=== PATIENT | male | born 1960 | race Caucasian/White ===

== ENCOUNTER → 2024-07-29 | Outpatient (CLI) | payer MEDICAID, SELFPAY ==
--- NOTE | 2024-07-29 14:30 | XR_ITS ---
Examination: Carotid arterial duplex scan, ultrasound. Date and time of exam: July 29, 2024 1342 hours INDICATIONS: Dizziness episodes beginning 2 months ago Technique: Multiple sonographic images have been obtained of the carotid arteries and vertebral arteries, B-mode/grayscale imaging and Doppler spectral analysis and color flow Peak systolic and diastolic velocities have been recorded. Systolic diastolic ratios have been calculated. Findings: Right peak systolic velocities: Distal internal carotid artery peak systolic velocity is 0.4 M/sec Proximal internal carotid artery peak systolic velocity is 0.5 M/sec Carotid bifurcation peak systolic velocity is 1.1 M/sec External carotid artery peak systolic velocity is 0.8 M/sec Vertebral artery flow is antegrade. Left peak systolic velocities: Distal internal carotid artery peak systolic velocity is 0.4 M/sec Proximal internal carotid artery peak systolic velocity is 0.8 M/sec Carotid bifurcation peak systolic velocity is 1.1 M/sec External carotid artery peak systolic velocity is 0.8 M/sec Vertebral artery flow is antegrade Doppler waveform analysis demonstrates no spectral broadening Impression: Right internal carotid artery demonstrates 0-10% stenosis. Left internal carotid artery demonstrates 0-10% stenosis.
== END | disposition home or self-care (01) ==
PROVIDERS: PCP Physician Assistant; Referring Provider Surgery Vascular Surgery; Visit Provider Surgery Vascular Surgery
DX: R42 Dizziness and giddiness (principal); Z87.898 Personal history of other specified conditions
CPT/HCPCS: 93880

== ENCOUNTER 2024-09-02 10:42 | Emergency (ER) | payer MEDICAID, SELFPAY ==
--- NOTE | 2024-09-02 10:47 | EKG_ITS ---
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1960 Requested By: ED Temporary Provider Order Number: [id number] Reading MD: ED Temporary Provider Measurements Intervals [place] Rate: 91 P: 62 IA: 132 QRS: -20 QRSD: 116 T: 52 QT: 336 QTc: 414 Interpretive Statements SINUS RHYTHM POSSIBLE LEFT ATRIAL ENLARGEMENT [-0.1mV P WAVE IN V1/V2] INCOMPLETE RIGHT BUNDLE BRANCH BLOCK [90+ ms QRS DURATION, TERMINAL R IN V1/V2, 40+ ms S IN I/aVL/V4/V5/V6] ANTEROSEPTAL MYOCARDIAL INFARCTION , OF INDETERMINATE AGE [40+ ms Q WAVE IN V1-V4] Compared to ECG 06/08/2024 10:56:49 Incomplete right bundle-branch block now present Myocardial infarct finding still present /store/S0/[id number]
--- NOTE | 2024-09-02 11:03 | XR_ITS ---
Examination: CT brain head without contrast. 2-D sagittal coronal reconstructions Date and time of exam:September 02, 2024 1115 hours Comparison June 03, 2024 INDICATIONS: Onset headaches dizziness today, syncopal episode with dizziness June 03, 2024 CTDI: vol (mGy):45.1 DLP: (mGycm):940 Technique: Multiple CT axial sections of the brain have been obtained, 5 mm slice thickness. Contrast has not been administered. 2-D sagittal, coronal reconstructions have been obtained Low dose protocols were performed. One or more of the following dose reduction techniques were used; automated exposure control, adjustment of the mA and/or KV according to patient size, use of iterative reconstruction technique. Findings: No significant ventricular enlargement. Intra-axial or extra-axial hemorrhage density is not seen. No mass effect or midline shift Basal cisterns are not remarkable. Fourth ventricle is midline. Cranial vault intact. Significant right maxillary sinusitis Impression: Negative for acute hemorrhage, mass effect or midline shift
--- NOTE | 2024-09-02 11:03 | XR_ITS ---
Examination: PA lateral chest 2 views TECHNIQUE: Upright PA lateral Exam date and time: September 02, 2024 1129 hours Comparison June 08, 2024 INDICATIONS: Chest pain dizziness today. FINDINGS: Minor subsegmental atelectasis left midlung Normal heart size No pneumonia or pulmonary edema Intact osseous structures mild increased AP dimension chest IMPRESSION: Minor subsegmental atelectasis left midlung No pneumonia or pulmonary edema
--- NOTE | 2024-09-02 11:04 | PD.EDRME ---
Rapid Medical Screening Exam RME Arrival date/time: 09/02/24 10:42 64-year-old male presents to the emergency department complains of chest pain and dizziness since yesterday Chief Complaint: Chest Pain
[2024-09-02 11:05] VITALS: BP 143/92; PULSE 75; RESP 18; TEMP 36.8; O2SAT 96
[2024-09-02 11:22] LABS: Collection Type, Urine Clean Catch; Squamous Epithelial Cell,Urine 0 /hpf (0-5)
[2024-09-02 11:33] LABS: Bilirubin,Urine Negative (Negative); Blood,Urine Negative (Negative); Clarity,Urine Clear (Clear/Hazy); Color,Urine Yellow (Lt Yel-Yel); Glucose, Urine Negative (Negative); Ketones,Urine Negative (Negative); Leukocyte Esterase,Urine Negative (Negative); Nitrite,Urine Negative (Negative); PH,Urine 5.5 (5.0-7.0); Protein,Urine Trace (Neg - Trace); RBC,Urine 5 /hpf (0-3); Specific Gravity,Urine 1.031 (1.001-1.035); Urobilinogen,Urine Negative mg/dL (0.0-1.0); WBC,Urine 2 /hpf (0-5)
[2024-09-02 11:53] LABS: Amphetamine/Methamp Scrn,U Negative (Negative); Barbiturate Screen,Urine Negative (Negative); Benzodiazepines Screen,Urine Negative (Negative); Benzoylecgonine Screen, Ur Negative (Negative); Fentanyl Screen,Urine Negative (Negative); Opiate Screen,Urine Negative (Negative); THC Screen,Urine Positive (Negative)
[2024-09-02 12:18] LABS: Basophils # (Auto) 0.1 Thou/mm3 (0.0-0.2); Basophils % (Auto) 1 % (0-2.5); Eosinophils # (Auto) 0.1 Thou/mm3 (0.0-0.5); Eosinophils % (Auto) 1 % (0-10); Hematocrit 48.8 % (41.0-53.0); Hemoglobin 17.3 g/dL (13.5-16.0); Immature Granulocytes % (Auto) 1 % (0-0); Immature Granulocytes Auto 0.05 Thou/mm3 (0.00-0.00); Lymphocytes # (Auto) 2.7 Thou/mm3 (1.0-4.8); Lymphocytes % (Auto) 27 % (10-50); Mean Corpuscular HGB Conc 35.5 g/dl (31.0-37.0); Mean Corpuscular Hemoglobin 31.1 pg (25.0-35.0); Mean Corpuscular Volume 88 fL (80-100); Monocytes # (Auto) 0.8 Thou/mm3 (0.0-0.8); Monocytes % (Auto) 8 % (0-12); Neutrophils # (Auto) 6.3 Thou/mm3 (1.8-7.7); Neutrophils % (Auto) 63 % (37-80); Nucleated Red Blood Cell % 0 /100 WBC (0); Platelet Count 341 Thou/mm3 (140-440); RDW Standard Deviation 46.4 fL (35.1-43.9); Red Blood Count 5.57 Miln/mm3 (4.50-5.90)
[2024-09-02 12:40] LABS: INR 1.1 (0.9-1.3); Partial Thromboplastin Time 27.7 Seconds (22.0-36.0); Prothrombin Time 11.5 Seconds (9.0-12.2)
[2024-09-02 12:46] LABS: B-Type Natriuretic Peptide < 20 pg/mL (0-100)
[2024-09-02 12:50] LABS: Alanine Aminotransferase 24 U/L (10-49); Albumin, Serum 4.9 gm/dL (3.4-4.8); Alkaline Phosphatase 74 U/L (46-116); Anion Gap 7 (7-16); Aspartate Amino Transferase 15 U/L (0-34); BUN/Creatinine Ratio 14 Ratio (12-20); Bilirubin,Total 0.6 mg/dL (0.3-1.2); Blood Urea Nitrogen 14 mg/dL (9-23); Calcium 9.9 mg/dL (8.3-10.6); Calcium (Corrected) 9.9 mg/dL (8.5-10.1); Carbon Dioxide 27.9 mMol/L (20.0-31.0); Chloride 104 mMol/L (98-107); Globulin 2.5 gm/dL (2.3-3.5); Glucose 175 mg/dL (74-106); Magnesium 1.9 mg/dL (1.6-2.6); Osmolality,Calculated 282 (275-295); Potassium 3.7 mMol/L (3.4-5.1); Sodium 139 mMol/L (136-145); Total Protein 7.4 gm/dL (5.7-8.2); Troponin I < 0.020 ng/mL (0.0-0.045); eGFR > 60 See Note
--- NOTE | 2024-09-02 12:57 | EDNOTE_ITS ---
ED Chest Pain RME/HPI General Chief Complaint: Chest Pain Stated Complaint: CX, DIZZINESS, WEAKNESS, DIFFICULTY BREATHING Time Seen by Provider: 09/02/24 11:11 Arrival date/time: 09/02/24 10:42 RME / HPI RME / HPI narrative: 64-year-old male presents to the emergency department complains of chest pain and dizziness since yesterday. Severity of symptoms moderate. Patient is also complained of shortness of breath, severity mild for several days now. Denies any cough denies any fever denies any headache denies any other complaints no medication was taken prior to arrival. Patient is ambulatory. Related Data Home Medications ?Medication ?Instructions ?Recorded ?Confirmed albuterol sulfate 90 mcg/actuation 2 puff inhalation Q4H 10/05/21 11/18/21 aerosol inhaler docusate sodium 100 mg capsule 100 mg PO BID 10/05/21 11/18/21 nitroglycerin 0.4 mg sublingual 0.4 mg buccal [id number] PRN CHESTPAIN 10/05/21 09/06/22 tablet Previous Rx's ?Medication ?Instructions ?Recorded apixaban 2.5 mg tablet (Eliquis) 5 mg (2 x 2.5 mg) PO BID 30 days 09/07/22 #120 tabs aspirin 81 mg tablet,delayed 81 mg PO QDAY 30 days #30 tabs 09/07/22 release atorvastatin 20 mg tablet 80 mg (4 x 20 mg) PO HS 30 days 09/07/22 #120 tabs clopidogrel 75 mg tablet 75 mg PO QDAY 30 days #30 tabs 09/07/22 losartan 25 mg tablet 50 mg (2 x 25 mg) PO QDAY 30 days 09/07/22 #60 tabs metoprolol succinate 25 mg 50 mg (2 x 25 mg) PO QDAY 30 days 09/07/22 tablet,extended release 24 hr #60 tabs fluticasone propionate 50 2 spray intranasal QDAY #16 grams 11/24/22 mcg/actuation nasal spray,suspension (Flonase Allergy Relief) meclizine 50 mg tablet (Antivert) 50 mg PO BID PRN dizziness or 11/24/22 vertigo #14 tabs meclizine 25 mg tablet 25 mg PO QDAY PRN dizziness #10 06/10/23 tabs meclizine 25 mg tablet 25 mg PO BID PRN dizziness #20 tabs 11/12/23 nicotine 7 mg/24 hr daily 7 mg topical QDAY #14 ea 11/12/23 transdermal patch ibuprofen 800 mg tablet 800 mg PO TID PRN pain #30 tabs 02/11/24 meclizine 50 mg tablet 50 mg PO BID PRN dizziness #20 tabs 02/11/24 albuterol sulfate 90 mcg/actuation 90 mcg inhalation Q6H PRN 06/03/24 breath activated powder shortness of breath or wheezing #1 inhaler,sensor (Proair Digihaler) ea Allergies Allergy/AdvReac Type Severity Reaction Status Date / Time almond oil Allergy Severe Difficulty Verified 09/02/24 10:43 Breathing Iodinated Contrast Media Allergy Severe Hives Verified 09/02/24 10:43 pecan nut Allergy Severe Difficulty Verified 09/02/24 10:43 Breathing tree nut Allergy Severe Difficulty Verified 09/02/24 10:43 Breathing walnut Allergy Severe Difficulty Verified 09/02/24 10:43 Breathing Review of Systems Review of Systems Narrative Review of Systems: Review of system reviewed and within normal limits except mentioned in HPI ED Exam Narrative Physical exam: VITAL SIGNS: Reviewed. GENERAL APPEARANCE: Alert and interactive, follows commands, no acute distress, HEAD AND FACE: Non-traumatic. ENT: PERRL, pink conjunctivitis, eyelid no trauma, Mucous membrane moist. NECK: Supple, nontender, no nuchal rigidity. CHEST: No tenderness, no crepitus, no paradoxical movement, no retractions. LUNGS: Clear, well ventilated, symmetric, no rales, no wheezing, no ronchi, no stridor, good breath sounds bilaterally. HEART: Regular rate, regular rhythm, no murmur, no gallops. ABDOMEN: Soft, positive bowel sounds, nondistended, no guarding, nontender, no rebound, no masses, RECTAL: Deferred. GENITAL: Deferred. NEUROLOGICAL: Gross motor function intact sensory function intact, Appropriate for age. MUSCULOSKELETAL: low back nontender, full range of motion. EXTREMITIES: Nontender, full range of motion. SKIN: Color pink, dry, no rash, no lacerations, no abrasions, no contusions. LYMPHATICS: Deferred. Course Quality Measures none Orders Category Date Time Status EKG (ED ONLY) *Do not use* NOW Care 09/02/24 10:[address] head/brain wo con Stat Exams 09/02/24 11:03 Completed EKG (ED Only) Stat Exams 09/02/24 10:47 Draft XR chest 2V Stat Exams 09/02/24 11:03 Completed B-Type Natriuretic Peptide Stat Lab 09/02/24 11:57 Completed CBC Stat Lab 09/02/24 11:57 Completed Comprehensive Metabolic Panel Stat Lab 09/02/24 11:57 Completed Drug Screen,Urine Stat Lab 09/02/24 11:21 Completed Magnesium Stat Lab 09/02/24 11:57 Completed Partial Thromboplastin Time Stat Lab 09/02/24 11:57 Completed Prothrombin Time with INR Stat Lab 09/02/24 11:57 Completed Troponin I Stat Lab 09/02/24 11:57 Completed Urinalysis Stat Lab 09/02/24 11:21 Completed Vital Signs Vital signs: Vital Signs Temperature 98.3 F 09/02/24 11:05 Pulse Rate 75 09/02/24 11:05 Respiratory Rate 18 09/02/24 11:05 Blood Pressure 143/92 H 09/02/24 11:05 Pulse Oximetry (%) 96 09/02/24 11:05 Oxygen Delivery Method Room Air 09/02/24 11:05 Chest Pain MDM Narrative MDM Narrative:: 64-year-old male patient presents to the emergency department complains of chest pain and dizziness since yesterday. Severity of symptoms moderate. Patient is also complained of shortness of breath, severity mild for several days now. Denies any cough denies any fever denies any headache denies any other complaints no medication was taken prior to arrival. Patient is ambulatory. Patient's cardiac workup including troponin x 3 all came back normal. CT scan of the head also came back unremarkable. Results discussed with the patient. Patient was noted to be ambulatory with no aid. Patient stable for discharge home. Patient was advised to closely follow-up with PCP and continue taking his meclizine. Patient data External records reviewed:: [facility] previous records Clinical information provided by:: patient Social determinants that could affect healthcare access:: none Patient has the following chronic illnesses:: Hypertension How is presenting disease/condition affected by chronic disease/condition?: exacerbated by Evaluation data The following diagnostics were reviewed and interpreted by me:: lab results, radiology exam(s) and EKG tracing(s) Lab and/or radiology exams considered but not ordered:: None Interpretation Summary: Laboratory workup including troponin x 3, all came back normal. CT scan of the head came back unremarkable. Urinalysis negative for UTI. EKG showed sinus rhythm, ventricular of 91 bpm, no ST segment elevation or depression noted. I personally reviewed and interpreted the x-ray of this patient. There is no acute abnormalities found, no infiltrates no pneumothorax no hemothorax normal chest x-ray. Review of other structures was without significant abnormal findings also. I additionally reviewed the radiologist report and agree with the interpretation. Medications / Prescriptions Medications or Prescriptions considered but not ordered:: None Medication administrations:: None Consultations Consultation(s) initiated? (list below): No Diagnosis Chest Pain Differential Diagnosis: pneumothorax, atypical chest pain and chest pain Most likely diagnosis given after review of the tests above:: Dizziness, chest pain Admission Indicated Admission indicated?: not indicated Explain why admission is indicated or not indicated:: Stable Admission Request Was there a request for admission?: No Disposition Plan Disposition Plan: Discharge Discharge Attestation Discharge Attestation: The patient was given an opportunity to ask questions and understood the discharge instructions. Discharge instructions specifically effects, indications for sooner follow up or return to the emergency department, and the expected course of current diagnosis. Patient condition: Stable Discharge Plan Plan Patient Disposition: HOME (Self Care) Disposition Comment: Stable Prescriptions/Referrals Prescriptions/Med Rec: No Action nitroglycerin 0.4 mg tablet, sublingual 0.4 mg BUCCAL [id number] PRN (Reason: CHESTPAIN) Patient Comments: PLACE 1 TABLET UNDER TONGUE EVERY 5 MINS, UP TO 3 DOSES PER 15MIN NEEDED FOR CHEST PAIN GO TO ER docusate sodium 100 mg capsule 100 mg PO BID Patient Comments: TAKE 1 CAPSULE BY MOUTH TWICE A DAY albuterol sulfate 90 mcg/actuation HFA aerosol inhaler 2 puff INHALATION Q4H Patient Comments: INHALE 2 PUFFS BY MOUTH EVERY 4 HOURS NEEDED FOR WHEEZING Eliquis 2.5 mg Tablet 5 mg PO BID 30 Days Qty: 120 2RF aspirin 81 mg Tablet,Delayed Release (Dr/Ec) 81 mg PO QDAY 30 Days Qty: 30 2RF atorvastatin 20 mg Tablet 80 mg PO HS 30 Days Qty: 120 2RF clopidogrel 75 mg Tablet 75 mg PO QDAY 30 Days Qty: 30 2RF losartan 25 mg Tablet 50 mg PO QDAY 30 Days Qty: 60 2RF metoprolol succinate 25 mg Tablet Extended Release 24 Hr 50 mg PO QDAY 30 Days Qty: 60 2RF meclizine 25 mg tablet 25 mg PO QDAY PRN (Reason: dizziness) Qty: 10 0RF Proair Digihaler 90 mcg/actuation aero powdr breath act w/sensor 90 mcg inhalation Q6H PRN (Reason: shortness of breath or wheezing) Qty: 1 0RF fluticasone propionate [Flonase Allergy Relief] 50 mcg/actuation spray,suspension 2 spray intranasal QDAY Qty: 16 0RF Rx Instructions: administer into each nostril Antivert 50 mg tablet 50 mg PO BID PRN (Reason: dizziness or vertigo) Qty: 14 0RF nicotine 7 mg/24 hr patch 24 hour 7 mg topical QDAY Qty: 14 0RF meclizine 25 mg tablet 25 mg PO BID PRN (Reason: dizziness) Qty: 20 0RF meclizine 50 mg tablet 50 mg PO BID PRN (Reason: dizziness) Qty: 20 0RF ibuprofen 800 mg tablet 800 mg PO TID PRN (Reason: pain) Qty: 30 0RF Referrals: Jacinto Valadez PA-C [Primary Care Provider] - In 1 week Problem List Clinical Impression: Dizziness, Chest pain Patient/Caregiver Discharge Instructions Discharge Activity: activity as tolerated Education Materials: ED Dizziness, Uncertain Cause Additional Instructions: Thank you for the opportunity for serving you today. You are stable for discharged . You are advised to: Follow-up with your PCP in 1 to 2 days Return to ED for worsening of symptoms Increase oral fluids Continue taking your meclizine as needed Print Language: Greek Stand Alone Forms: [employer] Award Info., Patient Portal Info Letter PA/NAVEED Supervising Physician KATHLEEN/NAVEED Supervising Physician: MD Luma
== END 2024-09-02 14:35 | disposition home or self-care (01) ==
PROVIDERS: Nurse Practitioner Primary Care; Emergency Provider Emergency Medicine; PCP Physician Assistant
DX: R42 Dizziness and giddiness (principal); R07.9 Chest pain, unspecified
CPT/HCPCS: 36415; 70450; 71046; 80053; 80307; 81001; 83735; 83880; 84484; 85025; 85610; 85730; 93005; 99284

== ENCOUNTER 2024-09-11 13:14 | Emergency (ER) | payer MEDICAID, SELFPAY ==
[2024-09-11 13:18] VITALS: PULSE 72; O2SAT 99; BMI 27.1
[2024-09-11 13:22] VITALS: BP 124/79; PULSE 81; RESP 16; TEMP 36.6; O2SAT 95
--- NOTE | 2024-09-11 13:29 | XR_ITS ---
Examination: CT brain head without contrast. 2-D sagittal coronal reconstructions Date and time of exam:September 11, 2024 1354 hrs. Indications: Syncopal episode today CTDI: vol (mGy):48.1 DLP: (mGycm):1020 Technique: Multiple CT axial sections of the brain have been obtained, 5 mm slice thickness. Contrast has not been administered. 2-D sagittal, coronal reconstructions have been obtained Low dose protocols were performed. One or more of the following dose reduction techniques were used; automated exposure control, adjustment of the mA and/or KV according to patient size, use of iterative reconstruction technique. Findings: No significant ventricular enlargement. Intra-axial or extra-axial hemorrhage density is not seen. No mass effect or midline shift Basal cisterns are not remarkable. Fourth ventricle is midline. Cranial vault intact. Significant maxillary right sinusitis Impression: Negative for acute hemorrhage, mass effect or midline shift Advise clinical correlation and follow-up accordingly
--- NOTE | 2024-09-11 13:29 | XR_ITS ---
Examination: PA chest single view Technique: Upright PA chest single view Exam date and time: September 11, 2024 1409 hrs. Comparison September 02, 2024 Indications: Shortness of breath dizziness today. Findings: Minor atelectasis in the left midlung Normal heart size No pneumonia or pulmonary edema Impression: No pneumonia or pulmonary edema
--- NOTE | 2024-09-11 13:29 | EKG_ITS ---
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
--- NOTE | 2024-09-11 13:31 | EDNOTE_ITS ---
<Statement entered by Franci Fan MD - 09/18/24 18:13> As co-signing physician, I was present and available for consult prn. I concur with the plan and care as documented by the midlevel provider. ED Syncope RME/HPI General Chief Complaint: Weakness Stated Complaint: GENERAL WEAKNESS FOR A FEW MONTHS, PASSED OUT Time Seen by Provider: 09/11/24 13:25 Arrival date/time: 09/11/24 13:14 RME / HPI RME / HPI narrative: 64-year-old male patient with significant history of ACS, CAD, hypertension, labyrinthitis, [place], came in for evaluation regarding syncope. Patient was fixing a chair, and suddenly developed dizziness, and fell down, does not remember what happened after that. Lasted for few seconds according to the patient. Currently patient is complaining of a headache and dizziness. Denies any chest pain. But complain of generalized body weakness for months. Denies any neck pain denies any back pain. Denies any other complaints no medication was taken prior to arrival. Patient was noted to be ambulatory. Related Data Home Medications ?Medication ?Instructions ?Recorded ?Confirmed albuterol sulfate 90 mcg/actuation 2 puff inhalation Q4H 10/05/21 11/18/21 aerosol inhaler docusate sodium 100 mg capsule 100 mg PO BID 10/05/21 11/18/21 nitroglycerin 0.4 mg sublingual 0.4 mg buccal [id number] PRN CHESTPAIN 10/05/21 0 09/06/22 tablet Previous Rx's ?Medication ?Instructions ?Recorded apixaban 2.5 mg tablet (Eliquis) 5 mg (2 x 2.5 mg) PO BID 30 days 09/07/22 #120 tabs aspirin 81 mg tablet,delayed 81 mg PO QDAY 30 days #30 tabs 09/07/22 release atorvastatin 20 mg tablet 80 mg (4 x 20 mg) PO HS 30 days 09/07/22 #120 tabs clopidogrel 75 mg tablet 75 mg PO QDAY 30 days #30 tabs 09/07/22 losartan 25 mg tablet 50 mg (2 x 25 mg) PO QDAY 30 days 09/07/22 #60 tabs metoprolol succinate 25 mg 50 mg (2 x 25 mg) PO QDAY 30 days 09/07/22 tablet,extended release 24 hr #60 tabs fluticasone propionate 50 2 spray intranasal QDAY #16 grams 11/24/22 mcg/actuation nasal spray,suspension (Flonase Allergy Relief) meclizine 50 mg tablet (Antivert) 50 mg PO BID PRN dizziness or 11/24/22 vertigo #14 tabs meclizine 25 mg tablet 25 mg PO QDAY PRN dizziness #10 06/10/23 tabs meclizine 25 mg tablet 25 mg PO BID PRN dizziness #20 tabs 11/12/23 nicotine 7 mg/24 hr daily 7 mg topical QDAY #14 ea 11/12/23 transdermal patch ibuprofen 800 mg tablet 800 mg PO TID PRN pain #30 tabs 02/11/24 meclizine 50 mg tablet 50 mg PO BID PRN dizziness #20 tabs 02/11/24 albuterol sulfate 90 mcg/actuation 90 mcg inhalation Q6H PRN 06/03/24 breath activated powder shortness of breath or wheezing #1 inhaler,sensor (Proair Digihaler) ea Allergies Allergy/AdvReac Type Severity Reaction Status Date / Time almond oil Allergy Severe Difficulty Verified 09/11/24 13:18 Breathing Iodinated Contrast Media Allergy Severe Hives Verified 09/11/24 13:18 pecan nut Allergy Severe Difficulty Verified 09/11/24 13:18 Breathing tree nut Allergy Severe Difficulty Verified 09/11/24 13:18 Breathing walnut Allergy Severe Difficulty Verified 09/11/24 13:18 Breathing Review of Systems Review of Systems Narrative Review of Systems: Review of system reviewed and within normal limits except mentioned in HPI ED Exam Narrative Physical exam: VITAL SIGNS: Reviewed. GENERAL APPEARANCE: Alert and interactive, follows commands, no acute distress, HEAD AND FACE: Non-traumatic. ENT: PERRL, pink conjunctivitis, eyelid no trauma, Mucous membrane moist. NECK: Supple, nontender, no nuchal rigidity. CHEST: No tenderness, no crepitus, no paradoxical movement, no retractions. LUNGS: Clear, well ventilated, symmetric, no rales, no wheezing, no ronchi, no stridor, good breath sounds bilaterally. HEART: Regular rate, regular rhythm, no murmur, no gallops. ABDOMEN: Soft, positive bowel sounds, nondistended, no guarding, nontender, no rebound, no masses, RECTAL: Deferred. GENITAL: Deferred. NEUROLOGICAL: Gross motor function intact sensory function intact, Appropriate for age. MUSCULOSKELETAL: low back nontender, full range of motion. EXTREMITIES: Nontender, full range of motion. SKIN: Color pink, dry, no rash, no lacerations, no abrasions, no contusions. LYMPHATICS: Deferred. Course Quality Measures none Orders Category Date Time Status EKG (ED ONLY) *Do not use* NOW Care 09/11/24 13:[address] head/brain wo con Stat Exams 09/11/24 13:29 Completed EKG (ED Only) Stat Exams 09/11/24 13:29 Draft XR chest 1V Stat Exams 09/11/24 13:29 Completed B-Type Natriuretic Peptide Stat Lab 09/11/24 13:50 Completed CBC Stat Lab 09/11/24 13:50 Completed Comprehensive Metabolic Panel Stat Lab 09/11/24 13:50 Completed Drug Screen,Urine Stat Lab 09/11/24 17:40 Completed Partial Thromboplastin Time Stat Lab 09/11/24 13:50 Completed Prothrombin Time with INR Stat Lab 09/11/24 13:50 Completed Troponin I Stat Lab 09/11/24 13:50 Completed Urinalysis, C/S if Indicated Stat Lab 09/11/24 17:40 Completed Acetaminophen Tab [Tylenol ES Tab] Med 09/11/24 13:29 Discontinued 1,000 mg PO X1 ONE Meclizine HCl [Antivert] Med 09/11/24 13:29 Discontinued 50 mg PO X1 ONE Vital Signs Vital signs: Vital Signs Temperature 97.9 F 09/11/24 13:22 Pulse Rate 81 09/11/24 13:22 Respiratory Rate 16 09/11/24 13:22 Blood Pressure 124/79 09/11/24 13:22 Pulse Oximetry (%) 95 09/11/24 13:22 Oxygen Delivery Method Room Air 09/11/24 13:22 Syncope MDM Narrative MDM Narrative:: 64-year-old male patient with significant history of ACS, CAD, hypertension, labyrinthitis, [place], came in for evaluation regarding syncope. Patient was fixing a chair, and suddenly developed dizziness, and fell down, does not remember what happened after that. Lasted for few seconds according to the patient. Currently patient is complaining of a headache and dizziness. Denies any chest pain. But complain of generalized body weakness for months. Denies any neck pain denies any back pain. Denies any other complaints no medication was taken prior to arrival. Patient was noted to be ambulatory. Patient eloped from the emergency room Patient data External records reviewed:: None Clinical information provided by:: patient Social determinants that could affect healthcare access:: none Patient has the following chronic illnesses:: Hypertension CAD How is presenting disease/condition affected by chronic disease/condition?: exacerbated by Evaluation data The following diagnostics were reviewed and interpreted by me:: lab results, radiology exam(s) and EKG tracing(s) Lab and/or radiology exams considered but not ordered:: None Interpretation Summary: Patient is CBC came back unremarkable. CMP came back unremarkable. Troponin is normal. LFTs are normal. Urinalysis no UTI positive for marijuana. CT scan of the head came back unremarkable. I personally reviewed and interpreted the x-ray of this patient. There is no acute abnormalities found, no infiltrates no pneumothorax no hemothorax normal chest x-ray. Review of other structures was without significant abnormal findings also. I additionally reviewed the radiologist report and agree with the interpretation. Medications / Prescriptions Medications or Prescriptions considered but not ordered:: None Medication administrations:: Medication Administration History Discontinued Medications Acetaminophen (Acetaminophen 500 Mg Tablet) 1,000 mg PO X1 ONE Stop: 09/11/24 13:30 Last Admin: 09/11/24 13:37 Dose: 1,000 mg Documented By: KEN Meclizine HCl (Meclizine Hcl 25 Mg Tablet) 50 mg PO X1 ONE Stop: 09/11/24 13:30 Last Admin: 09/11/24 13:37 Dose: 50 mg Documented By: KEN Meclizine and Tylenol Consultations Consultation(s) initiated? (list below): No Diagnosis Syncope Differential Diagnosis: syncope due to orthostatic hypotension, vasovagal syncope and subarachnoid hemorrhage Most likely diagnosis given after review of the tests above:: Syncope Admission Indicated Admission indicated?: not indicated ([facility]) Admission Request Was there a request for admission?: No Disposition Plan Disposition Plan: other (specify) ([facility]) Discharge Plan Plan Patient Disposition: Elopement Prescriptions/Referrals Prescriptions/Med Rec: No Action nitroglycerin 0.4 mg tablet, sublingual 0.4 mg BUCCAL [id number] PRN (Reason: CHESTPAIN) Patient Comments: PLACE 1 TABLET UNDER TONGUE EVERY 5 MINS, UP TO 3 DOSES PER 15MIN NEEDED FOR CHEST PAIN GO TO ER docusate sodium 100 mg capsule 100 mg PO BID Patient Comments: TAKE 1 CAPSULE BY MOUTH TWICE A DAY albuterol sulfate 90 mcg/actuation HFA aerosol inhaler 2 puff INHALATION Q4H Patient Comments: INHALE 2 PUFFS BY MOUTH EVERY 4 HOURS NEEDED FOR WHEEZING Eliquis 2.5 mg Tablet 5 mg PO BID 30 Days Qty: 120 2RF aspirin 81 mg Tablet,Delayed Release (Dr/Ec) 81 mg PO QDAY 30 Days Qty: 30 2RF atorvastatin 20 mg Tablet 80 mg PO HS 30 Days Qty: 120 2RF clopidogrel 75 mg Tablet 75 mg PO QDAY 30 Days Qty: 30 2RF losartan 25 mg Tablet 50 mg PO QDAY 30 Days Qty: 60 2RF metoprolol succinate 25 mg Tablet Extended Release 24 Hr 50 mg PO QDAY 30 Days Qty: 60 2RF meclizine 25 mg tablet 25 mg PO QDAY PRN (Reason: dizziness) Qty: 10 0RF Proair Digihaler 90 mcg/actuation aero powdr breath act w/sensor 90 mcg inhalation Q6H PRN (Reason: shortness of breath or wheezing) Qty: 1 0RF fluticasone propionate [Flonase Allergy Relief] 50 mcg/actuation spray,suspension 2 spray intranasal QDAY Qty: 16 0RF Rx Instructions: administer into each nostril Antivert 50 mg tablet 50 mg PO BID PRN (Reason: dizziness or vertigo) Qty: 14 0RF nicotine 7 mg/24 hr patch 24 hour 7 mg topical QDAY Qty: 14 0RF meclizine 25 mg tablet 25 mg PO BID PRN (Reason: dizziness) Qty: 20 0RF meclizine 50 mg tablet 50 mg PO BID PRN (Reason: dizziness) Qty: 20 0RF ibuprofen 800 mg tablet 800 mg PO TID PRN (Reason: pain) Qty: 30 0RF Referrals: Jacinto Valadez PA-C [Primary Care Provider] - In 1 week Problem List Clinical Impression: Dizziness, Syncope Patient/Caregiver Discharge Instructions Print Language: Mauritanian
[2024-09-11] MEDS: MECLIZINE HCL 25 MG TABLET 50 MG PO (13:37)
[2024-09-11] MEDS: ACETAMINOPHEN 500 MG TABLET 1000 MG PO (13:37)
[2024-09-11 14:26] LABS: Basophils # (Auto) 0.1 Thou/mm3 (0.0-0.2); Basophils % (Auto) 1 % (0-2.5); Eosinophils # (Auto) 0.2 Thou/mm3 (0.0-0.5); Eosinophils % (Auto) 2 % (0-10); Hematocrit 48.3 % (41.0-53.0); Hemoglobin 16.8 g/dL (13.5-16.0); Immature Granulocytes % (Auto) 1 % (0-0); Immature Granulocytes Auto 0.05 Thou/mm3 (0.00-0.00); Lymphocytes # (Auto) 2.4 Thou/mm3 (1.0-4.8); Lymphocytes % (Auto) 27 % (10-50); Mean Corpuscular HGB Conc 34.8 g/dl (31.0-37.0); Mean Corpuscular Hemoglobin 30.8 pg (25.0-35.0); Mean Corpuscular Volume 89 fL (80-100); Monocytes # (Auto) 0.9 Thou/mm3 (0.0-0.8); Monocytes % (Auto) 10 % (0-12); Neutrophils # (Auto) 5.2 Thou/mm3 (1.8-7.7); Neutrophils % (Auto) 59 % (37-80); Nucleated Red Blood Cell % 0 /100 WBC (0); Platelet Count 315 Thou/mm3 (140-440); RDW Standard Deviation 45.7 fL (35.1-43.9); Red Blood Count 5.45 Miln/mm3 (4.50-5.90); White Blood Count 8.9 Thou/mm3 (3.8-10.6)
[2024-09-11 14:40] LABS: Partial Thromboplastin Time 27.1 Seconds (22.0-36.0); Prothrombin Time 10.9 Seconds (9.0-12.2)
[2024-09-11 14:41] LABS: B-Type Natriuretic Peptide < 20 pg/mL (0-100)
[2024-09-11 14:43] LABS: Alanine Aminotransferase 27 U/L (10-49); Albumin, Serum 4.9 gm/dL (3.4-4.8); Alkaline Phosphatase 74 U/L (46-116); Anion Gap 8 (7-16); Aspartate Amino Transferase 16 U/L (0-34); BUN/Creatinine Ratio 13 Ratio (12-20); Bilirubin,Total 0.4 mg/dL (0.3-1.2); Blood Urea Nitrogen 12 mg/dL (9-23); Calcium 9.8 mg/dL (8.3-10.6); Calcium (Corrected) 9.8 mg/dL (8.5-10.1); Carbon Dioxide 25.6 mMol/L (20.0-31.0); Chloride 106 mMol/L (98-107); Creatinine (Component) 0.9 mg/dL (0.6-1.3); Estimated Creatinine Clearance 77.5 mL/min (>60); Globulin 2.5 gm/dL (2.3-3.5); Glucose 102 mg/dL (74-106); Osmolality,Calculated 279 (275-295); Potassium 4.2 mMol/L (3.4-5.1); Sodium 140 mMol/L (136-145); Total Protein 7.4 gm/dL (5.7-8.2); Troponin I < 0.020 ng/mL (0.0-0.045); eGFR > 60 See Note
[2024-09-11 17:45] VITALS: BP 154/96; PULSE 78; RESP 19; TEMP 36.4; O2SAT 97
[2024-09-11 17:45] LABS: Collection Type, Urine Clean Catch
[2024-09-11 17:53] LABS: Bilirubin,Urine Negative (Negative); Blood,Urine Negative (Negative); Clarity,Urine Clear (Clear/Hazy); Color,Urine Lt-Yellow (Lt Yel-Yel); Culture Indicated,Urine Not Indicated; Glucose, Urine Negative (Negative); Ketones,Urine Negative (Negative); Leukocyte Esterase,Urine Negative (Negative); Nitrite,Urine Negative (Negative); PH,Urine 5.5 (5.0-7.0); Protein,Urine Negative (Neg - Trace); RBC,Urine < 1 /hpf (0-3); Squamous Epithelial Cell,Urine < 1 /hpf (0-5); Urobilinogen,Urine Negative mg/dL (0.0-1.0); WBC,Urine 1 /hpf (0-5)
[2024-09-11 18:04] LABS: Amphetamine/Methamp Scrn,U Negative (Negative); Barbiturate Screen,Urine Negative (Negative); Benzodiazepines Screen,Urine Negative (Negative); Benzoylecgonine Screen, Ur Negative (Negative); Fentanyl Screen,Urine Negative (Negative); Opiate Screen,Urine Negative (Negative); THC Screen,Urine Positive (Negative)
--- NOTE | 2024-09-11 18:36 | PC.NURSE ---
PROVIDER ANISH CALLED PATIENT IN THE LOBBY FOR RESULTS, NO ANSWER RECEIVED. THIS NURSE CALLED PATIENT IN THE RESTROOM AND OUTSIDE, NO ANSWER RECEIVED.
--- NOTE | 2024-09-11 18:54 | PC.NURSE ---
CALLED PATIENT IN THE LOBBY, RESTROOM, AND OUTSIDE, NO ANSWER.
--- NOTE | 2024-09-11 19:06 | PC.NURSE ---
no answer at er lobby or outside er.
== END 2024-09-11 19:07 | disposition left against medical advice (07) ==
PROVIDERS: Nurse Practitioner Family; Emergency Provider Emergency Medicine; PCP Physician Assistant
DX: R42 Dizziness and giddiness (principal); R55 Syncope and collapse; I25.10 Atherosclerotic heart disease of native coronary artery without angina pectoris; I10 Essential (primary) hypertension; I25.2 Old myocardial infarction
CPT/HCPCS: 36415; 70450; 71045; 80053; 80307; 81001; 83880; 84484; 85025; 85610; 85730; 93005; 99284; A9270

== ENCOUNTER 2024-10-02 08:34 | Inpatient (IN) | payer MEDICAID, SELFPAY ==
[2024-10-02] VITALS (38 sets, daily range): BP systolic 115–161; BP diastolic 78–101; PULSE 65–110; RESP 15–38; TEMP 36.4–36.8; O2SAT 87–98; BMI 27.2
--- NOTE | 2024-10-02 08:39 | EKG_ITS ---
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
--- NOTE | 2024-10-02 09:14 | XR_ITS ---
Examination: PA lateral chest 2 views Technique: Upright PA lateral chest 2 views Exam date and time: October 12, 2024 0941 hrs. Comparison September 11, 2024 Indications: Onset acute chest pain and dizziness today Findings: Normal heart size The lungs are clear. Mild hyperexpansion No lobar pneumonia or pulmonary edema Impression: Mild hyperexpansion No lobar pneumonia or pulmonary edema
--- NOTE | 2024-10-02 09:14 | PD.EDRME ---
Rapid Medical Screening Exam RME Arrival date/time: 10/02/24 08:34 64-year-old male presents to the emergency department with complaints of acute chest pain, dizziness. I have greeted and performed a focused initial assessment of this patient. Initial appropriate labs ordered at this time. A comprehensive ED assessment and evaluation of the patient and analysis of all test and completion of medical decision making process will be conducted by additional ED provider. Chief Complaint: Chest Pain Time Seen by Provider: 10/02/24 09:07 Vital signs: Vital Signs Temperature 98.3 F 10/02/24 08:59 Pulse Rate 81 10/02/24 08:59 Respiratory Rate 16 10/02/24 08:59 Blood Pressure 135/84 H 10/02/24 08:59 Pulse Oximetry (%) 97 10/02/24 08:59 Oxygen Delivery Method Room Air 10/02/24 08:59
--- NOTE | 2024-10-02 09:23 | PC.NURSE ---
Patient presents to ER with complaint of Right arm pain, dizziness, and blacking out x 2 days. Patient states he is currently not having any pain. Patient is GCS 15 and answers all questions appropriately. Awaiting further orders and will continue to monitor.
--- NOTE | 2024-10-02 09:43 | PD.EDCHEST ---
ED Chest Pain RME/HPI General Chief Complaint: Chest Pain Stated Complaint: chest pain, sob, feels like passing out since yest Time Seen by Provider: 10/02/24 09:07 Arrival date/time: 10/02/24 08:34 RME / HPI RME / HPI narrative: 10/02/24 08:34 64-year-old male presents to the emergency department with complaints of acute chest pain, dizziness. I have greeted and performed a focused initial assessment of this patient. Initial appropriate labs ordered at this time. A comprehensive ED assessment and evaluation of the patient and analysis of all test and completion of medical decision making process will be conducted by additional ED provider. DR. A[facility] MAIN ED EVALUATION: passing out5 just zitting in chair feels someithing coming, then down falls out of chair seconds before yesterday fell outside in the [place] sitting in chair outside once yesterday last time 4-5 days ago getting HAs on left side of head Related Data Home Medications ?Medication ?Instructions ?Recorded ?Confirmed albuterol sulfate 90 mcg/actuation 2 puff inhalation Q4H 10/05/21 11/18/21 aerosol inhaler docusate sodium 100 mg capsule 100 mg PO BID 10/05/21 11/18/21 nitroglycerin 0.4 mg sublingual 0.4 mg buccal [id number] PRN CHESTPAIN 10/05/21 09/06/22 tablet Previous Rx's ?Medication ?Instructions ?Recorded apixaban 2.5 mg tablet (Eliquis) 5 mg (2 x 2.5 mg) PO BID 30 days 09/07/22 #120 tabs aspirin 81 mg tablet,delayed 81 mg PO QDAY 30 days #30 tabs 09/07/22 release atorvastatin 20 mg tablet 80 mg (4 x 20 mg) PO HS 30 days 09/07/22 #120 tabs clopidogrel 75 mg tablet 75 mg PO QDAY 30 days #30 tabs 09/07/22 losartan 25 mg tablet 50 mg (2 x 25 mg) PO QDAY 30 days 09/07/22 #60 tabs metoprolol succinate 25 mg 50 mg (2 x 25 mg) PO QDAY 30 days 09/07/22 tablet,extended release 24 hr #60 tabs fluticasone propionate 50 2 spray intranasal QDAY #16 grams 11/24/22 mcg/actuation nasal spray,suspension (Flonase Allergy Relief) meclizine 50 mg tablet (Antivert) 50 mg PO BID PRN dizziness or 11/24/22 vertigo #14 tabs meclizine 25 mg tablet 25 mg PO QDAY PRN dizziness #10 06/10/23 tabs meclizine 25 mg tablet 25 mg PO BID PRN dizziness #20 tabs 11/12/23 nicotine 7 mg/24 hr daily 7 mg topical QDAY #14 ea 11/12/23 transdermal patch ibuprofen 800 mg tablet 800 mg PO TID PRN pain #30 tabs 02/11/24 meclizine 50 mg tablet 50 mg PO BID PRN dizziness #20 tabs 02/11/24 albuterol sulfate 90 mcg/actuation 90 mcg inhalation Q6H PRN 06/03/24 breath activated powder shortness of breath or wheezing #1 inhaler,sensor (Proair Digihaler) ea Allergies Allergy/AdvReac Type Severity Reaction Status Date / Time almond oil Allergy Severe Difficulty Verified 10/02/24 08:37 Breathing Iodinated Contrast Media Allergy Severe Hives Verified 10/02/24 08:37 pecan nut Allergy Severe Difficulty Verified 10/02/24 08:37 Breathing tree nut Allergy Severe Difficulty Verified 10/02/24 08:37 Breathing walnut Allergy Severe Difficulty Verified 10/02/24 08:37 Breathing Course Orders Category Date Time Status Bedside Influenza A&B Antigen Test NOW Care 10/02/24 09:14 Completed EKG (ED ONLY) *Do not use* NOW Care 10/02/24 08:39 Completed EKG (ED Only) Stat Exams 10/02/24 08:39 Draft XR chest 2V Stat Exams 10/02/24 09:14 Taken B-Type Natriuretic Peptide Stat Lab 10/02/24 09:40 Completed CBC Stat Lab 10/02/24 09:40 Received Comprehensive Metabolic Panel Stat Lab 10/02/24 09:40 Completed Lipase Stat Lab 10/02/24 09:40 Completed Magnesium Stat Lab 10/02/24 09:40 Completed Partial Thromboplastin Time Stat Lab 10/02/24 09:40 Completed Prothrombin Time with INR Stat Lab 10/02/24 09:40 Completed Troponin I Stat Lab 10/02/24 09:40 Completed Vital Signs Vital signs: Vital Signs Temperature 98.3 F 10/02/24 08:59 Pulse Rate 81 10/02/24 08:59 Respiratory Rate 16 10/02/24 08:59 Blood Pressure 135/84 H 10/02/24 08:59 Pulse Oximetry (%) 97 10/02/24 08:59 Oxygen Delivery Method Room Air 10/02/24 08:59 Discharge Plan Prescriptions/Referrals Prescriptions/Med Rec: No Action nitroglycerin 0.4 mg tablet, sublingual 0.4 mg BUCCAL [id number] PRN (Reason: CHESTPAIN) Patient Comments: PLACE 1 TABLET UNDER TONGUE EVERY 5 MINS, UP TO 3 DOSES PER 15MIN NEEDED FOR CHEST PAIN GO TO ER docusate sodium 100 mg capsule 100 mg PO BID Patient Comments: TAKE 1 CAPSULE BY MOUTH TWICE A DAY albuterol sulfate 90 mcg/actuation HFA aerosol inhaler 2 puff INHALATION Q4H Patient Comments: INHALE 2 PUFFS BY MOUTH EVERY 4 HOURS NEEDED FOR WHEEZING Eliquis 2.5 mg Tablet 5 mg PO BID 30 Days Qty: 120 2RF aspirin 81 mg Tablet,Delayed Release (Dr/Ec) 81 mg PO QDAY 30 Days Qty: 30 2RF atorvastatin 20 mg Tablet 80 mg PO HS 30 Days Qty: 120 2RF clopidogrel 75 mg Tablet 75 mg PO QDAY 30 Days Qty: 30 2RF losartan 25 mg Tablet 50 mg PO QDAY 30 Days Qty: 60 2RF metoprolol succinate 25 mg Tablet Extended Release 24 Hr 50 mg PO QDAY 30 Days Qty: 60 2RF meclizine 25 mg tablet 25 mg PO QDAY PRN (Reason: dizziness) Qty: 10 0RF Proair Digihaler 90 mcg/actuation aero powdr breath act w/sensor 90 mcg inhalation Q6H PRN (Reason: shortness of breath or wheezing) Qty: 1 0RF fluticasone propionate [Flonase Allergy Relief] 50 mcg/actuation spray,suspension 2 spray intranasal QDAY Qty: 16 0RF Rx Instructions: administer into each nostril Antivert 50 mg tablet 50 mg PO BID PRN (Reason: dizziness or vertigo) Qty: 14 0RF nicotine 7 mg/24 hr patch 24 hour 7 mg topical QDAY Qty: 14 0RF meclizine 25 mg tablet 25 mg PO BID PRN (Reason: dizziness) Qty: 20 0RF meclizine 50 mg tablet 50 mg PO BID PRN (Reason: dizziness) Qty: 20 0RF ibuprofen 800 mg tablet 800 mg PO TID PRN (Reason: pain) Qty: 30 0RF Referrals: Jacinto Valadez PA-C [Primary Care Provider] - In 1 week Patient/Caregiver Discharge Instructions Print Language: Kiswahili
[2024-10-02 09:52] LABS: Basophils # (Auto) 0.1 Thou/mm3 (0.0-0.2); Basophils % (Auto) 1 % (0-2.5); Eosinophils # (Auto) 0.2 Thou/mm3 (0.0-0.5); Eosinophils % (Auto) 2 % (0-10); Hematocrit 46.5 % (41.0-53.0); Hemoglobin 16.3 g/dL (13.5-16.0); Immature Granulocytes % (Auto) 1 % (0-0); Immature Granulocytes Auto 0.05 Thou/mm3 (0.00-0.00); Lymphocytes # (Auto) 2.3 Thou/mm3 (1.0-4.8); Lymphocytes % (Auto) 26 % (10-50); Mean Corpuscular HGB Conc 35.1 g/dl (31.0-37.0); Mean Corpuscular Hemoglobin 31.2 pg (25.0-35.0); Mean Corpuscular Volume 89 fL (80-100); Monocytes # (Auto) 0.7 Thou/mm3 (0.0-0.8); Monocytes % (Auto) 8 % (0-12); Neutrophils # (Auto) 5.4 Thou/mm3 (1.8-7.7); Neutrophils % (Auto) 61 % (37-80); Nucleated Red Blood Cell % 0 /100 WBC (0); Platelet Count 321 Thou/mm3 (140-440); RDW Standard Deviation 46.5 fL (35.1-43.9); Red Blood Count 5.23 Miln/mm3 (4.50-5.90); White Blood Count 8.9 Thou/mm3 (3.8-10.6)
[2024-10-02 10:07] LABS: Partial Thromboplastin Time 28.1 Seconds (22.0-36.0)
[2024-10-02 10:08] LABS: B-Type Natriuretic Peptide < 20 pg/mL (0-100)
[2024-10-02 10:09] LABS: Alanine Aminotransferase 19 U/L (10-49); Albumin, Serum 4.6 gm/dL (3.4-4.8); Alkaline Phosphatase 68 U/L (46-116); Anion Gap 6 (7-16); Aspartate Amino Transferase 17 U/L (0-34); BUN/Creatinine Ratio 21 Ratio (12-20); Bilirubin,Total 0.4 mg/dL (0.3-1.2); Blood Urea Nitrogen 17 mg/dL (9-23); Calcium 9.4 mg/dL (8.3-10.6); Calcium (Corrected) 9.4 mg/dL (8.5-10.1); Chloride 107 mMol/L (98-107); Creatinine (Component) 0.8 mg/dL (0.6-1.3); Estimated Creatinine Clearance 87.2 mL/min (>60); Globulin 2.3 gm/dL (2.3-3.5); Glucose 132 mg/dL (74-106); Lipase 149 U/L (12-53); Magnesium 1.8 mg/dL (1.6-2.6); Osmolality,Calculated 284 (275-295); Sodium 141 mMol/L (136-145); Total Protein 6.9 gm/dL (5.7-8.2); Troponin I < 0.020 ng/mL (0.0-0.045); eGFR > 60 See Note
--- NOTE | 2024-10-02 10:51 | XR_ITS ---
Examination: CT brain head without contrast. 2-D sagittal coronal reconstructions Date and time of exam:October 02, 2024 at 1158 hrs. Indications: Syncopal episodes beginning 3 days ago CTDI: vol (mGy):47.1 DLP: (mGycm):977 Technique: Multiple CT axial sections of the brain have been obtained, 5 mm slice thickness. Contrast has not been administered. 2-D sagittal, coronal reconstructions have been obtained Low dose protocols were performed. One or more of the following dose reduction techniques were used; automated exposure control, adjustment of the mA and/or KV according to patient size, use of iterative reconstruction technique. Findings: No significant ventricular enlargement. Intra-axial or extra-axial hemorrhage density is not seen. No mass effect or midline shift Basal cisterns are not remarkable. Fourth ventricle is midline. Cranial vault intact. Impression: Negative for acute hemorrhage, mass effect or midline shift Advise clinical correlation and follow-up accordingly
--- NOTE | 2024-10-02 10:51 | XR_ITS ---
Examination: CT cervical spine without contrast 2-D sagittal reconstructions 2-D coronal reconstructions 3-D reconstructions. Exam date and time:October 02, 2024 at 1202 hrs. Indications: Syncopal episodes with falls over the last 3 days with injury to the neck, neck pain CTDI:vol (mGy) 8.21 DLP: (mGycm) 187 Technique: Multiple 2 mm axial sections of the cervical spine have been obtained. The coronal and sagittal reconstructions have been obtained. 3-D reconstructions have been obtained. Low dose protocols were performed. One or more of the following dose reduction techniques were used; automated exposure control, adjustment of the mA and/or KV according to patient size, use of iterative reconstruction technique. Findings: Axial sections demonstrate intact base of the skull. C1 exhibit satisfactory relationship to the odontoid. No acute cervical vertebral body fracture seen. Alignment posterior spinous processes satisfactory. Mild to moderate degenerative disc disease C4-C5, C5-C6 Impression: No acute cervical fracture.
[2024-10-02] MEDS: MethylPREDNISolone SOD SUCC 62.5 MG/ML 2ML VIAL 125 MG IVP (11:36)
[2024-10-02] MEDS: DiphenhydrAMINE INJ 50 MG/ML VIAL 25 MG IVP (11:36)
[2024-10-02] MEDS: FAMOTIDINE INJ 10 MG/ML VIAL 2 ML 20 MG IVP (11:36)
--- NOTE | 2024-10-02 11:37 | EDNOTE_ITS ---
ED Dizzyness RME/HPI General Chief Complaint: Chest Pain Stated Complaint: chest pain, sob, feels like passing out since yest Time Seen by Provider: 10/02/24 09:07 Arrival date/time: 10/02/24 08:34 RME / HPI RME / HPI Narrative: 10/02/24 08:34 64-year-old male presents to the emergency department with complaints of acute chest pain, dizziness. I have greeted and performed a focused initial assessment of this patient. Initial appropriate labs ordered at this time. A comprehensive ED assessment and evaluation of the patient and analysis of all test and completion of medical decision making process will be conducted by additional ED provider. DR. FAN MAIN ED EVALUATION: 64 year old male presents to the Emergency Department with complaint of dizziness and passing out while just sitting on his chair. He states he feels something coming seconds before and then falls out of the chair. Yesterday, he fell out of his chair. He also has been getting headaches on the left side of his head. Denies any other symptoms. PMHx: ACS, CAD, hypertension, labyrinthitis, PA. Social Hx: No tobacco, alcohol, or substance use. Related Data Home Medications ?Medication ?Instructions ?Recorded ?Confirmed albuterol sulfate 90 mcg/actuation 2 puff inhalation Q 4H 10/05/21 11/18/21 aerosol inhaler docusate sodium 100 mg capsule 100 mg PO BID 10/05/21 11/18/21 nitroglycerin 0.4 mg sublingual 0.4 mg buccal [id number] PRN CHESTPAIN 10/05/21 09/06/22 tablet Previous Rx's ?Medication ?Instructions ?Recorded apixaban 2.5 mg tablet (Eliquis) 5 mg (2 x 2.5 mg) PO BID 30 days 09/07/22 #120 tabs aspirin 81 mg tablet,delayed 81 mg PO QDAY 30 days #30 tabs 09/07/22 release atorvastatin 20 mg tablet 80 mg (4 x 20 mg) PO HS 30 d ays 09/07/22 #120 tabs clopidogrel 75 mg tablet 75 mg PO QDAY 30 days #30 ta bs 09/07/22 losartan 25 mg tablet 50 mg (2 x 25 mg) PO QDAY 30 days 09/07/22 #60 tabs metoprolol succinate 25 mg 50 mg (2 x 25 mg) PO QDAY 3 0 days 01/14/23 tablet,extended release 24 hr #60 tabs fluticasone propionate 50 2 spray intranasal QDAY #16 grams 11/24/22 mcg/actuation nasal spray,suspension (Flonase Allergy Relief) meclizine 50 mg tablet (Antivert) 50 mg PO BID PRN diz ziness or 11/24/22 vertigo #14 tabs meclizine 25 mg tablet 25 mg PO QDAY PRN dizziness #10 06/10/23 tabs meclizine 25 mg tablet 25 mg PO BID PRN dizziness # 20 tabs 11/12/23 nicotine 7 mg/24 hr daily 7 mg topical QDAY #14 ea transdermal patch ibuprofen 800 mg tablet 800 mg PO TID PRN pain #30 t abs 02/11/24 meclizine 50 mg tablet 50 mg PO BID PRN dizziness # 20 tabs 02/11/24 albuterol sulfate 90 mcg/actuation 90 mcg inhalation Q 6H PRN 06/03/24 breath activated powder shortness of breath or wheez ing #1 inhaler,sensor (Proair Digihaler) ea Allergies Allergy/AdvReac Type Severity Reaction Status Date / Time almond oil Allergy Severe Difficulty Verified 10/02/24 08:37 Breathing Iodinated Contrast Media Allergy Severe Hives Verified 10/02/24 08:37 pecan nut Allergy Severe Difficulty Verified 10/02/24 08:37 Breathing tree nut Allergy Severe Difficulty Verified 10/02/24 08:37 Breathing walnut Allergy Severe Difficulty Verified 10/02/24 08:37 Breathing Review of Systems Review of Systems Systems Reviewed: All systems reviewed, normal except as documented Narrative Review of Systems: GEN: No fever, no chills, no weight loss EYES: No discharge, no visual changes, no pain HEENT: No ear pain, no congestion, no sore throat PULM: No shortness of breath, no cough, no congestion CV: No chest pain, no dyspnea on exertion, no palpitations GI: No nausea, no vomiting, no diarrhea, no pain, no constipation : No frequency, no urgency and no dysuria MUSC/SKEL: No joint pain, no back pain SKIN: No rash PSYCH: No hallucinations, no depression HEME/LYMPH: No easy bleeding or bruising tendencies NEURO: No weakness, + dizziness/ syncope (see HPI), + headaches on the left side of his head Past Medical History Past Medical History NEUROLOGIC: Negative Neurological Disorders CARDIAC: Positive Cardiac Disorders, Myocardial Infarction, Coronary Artery Disease, Atherosclerotic Heart Disease, Hypercholesterolemia and Hypertension; Negative Congestive Heart Failure RESPIRATORY: Positive Chronic Obstructive Pulmonary Disease (COPD) and Smoking; Negative Asthma GASTROINTESTINAL: Positive Gastrointestinal Disorders and Gastroesophageal Reflux Disease GENITOURINARY: Negative Genitourinary Disorders or Renal Disease MUSCULOSKELETAL: Positive Musculoskeletal Disorders ENDOCRINE: Positive Endocrine Disorders; Negative Diabetes Mellitus Type 1 or Diabetes Mellitus Type 2 HEMATOLOGIC: Negative Blood Disorders or Sickle Cell Disease OTHER HISTORY: Negative Cancer Family History FAMILY HISTORY: Negative Family Psychiatric Problems, Family Respiratory Disorders, Family Cardiac Disorders or Family Gastrointestinal Problems Surgical History SURGICAL: Positive Cardiac Surgery, Coronary Stent and Abdominal Surgery; Negative Joint Replacement Social History SMOKING STATUS: Current every day smoker SUBSTANCE USE: marijuana Travel History EBOLA RISK: No ED Exam Narrative Physical exam: GENERAL APPEARANCE: alert and oriented x 4, well-developed, well-nourished, no acute distress VITALS: All vitals were reviewed and the pulse ox is 95% on room air, which is normal according to my interpretation. HEENT: Normocephalic, atraumatic; pupils equal, round, reactive to light; EOMI; mucous membranes pink, moist; oropharynx clear NECK: Supple LUNGS: CTABL; no wheezes, no rales, no rhonchi HEART: Regular rate, regular rhythm; normal S1, S2; no murmurs ABDOMEN: non distended; normal BS; soft, no tenderness, no guarding, no rebound; no masses, no organomegaly, no hernia BACK: no CVA tenderness EXTREMITIES: atraumatic; no edema NEUROLOGIC: awake; alert and oriented x4; cranial nerves II-XII grossly intact; no focal sensory or motor deficits PSYCHIATRIC: appropriate mood and affect SKIN: warm, dry, normal color; no rashes Course Quality Measures none Orders Category Date Time Status Bedside Influenza A&B Antigen Test NOW Care 10/02/24 09:[address] Screening NOW Care 10/02/24 10:[address] Screening NOW Care 10/02/24 11:52 Completed EKG (ED ONLY) *Do not use* NOW Care 10/02/24 08:39 Completed EKG (ED ONLY) *Do not use* NOW Care 10/02/24 11:[address] angio carotid w head w Stat Exams 10/02/24 11:[address] cervical spine wo con Stat Exams 10/02/24 10:[address] head/brain wo con Stat Exams 10/02/24 10:51 Completed EKG (ED Only) Stat Exams 10/02/24 08:39 Draft EKG (ED Only) Stat Exams 10/02/24 11:49 Ordered XR chest 2V Stat Exams 10/02/24 09:14 Completed B-Type Natriuretic Peptide Stat Lab 10/02/24 09:40 Completed CBC Stat Lab 10/02/24 09:40 Completed Comprehensive Metabolic Panel Stat Lab 10/02/24 09:40 Completed Lipase Stat Lab 10/02/24 09:40 Completed Magnesium Stat Lab 10/02/24 09:40 Completed Partial Thromboplastin Time Stat Lab 10/02/24 09:40 Completed Prothrombin Time with INR Stat Lab 10/02/24 09:40 Completed Troponin I Stat Lab 10/02/24 09:40 Completed Troponin I Stat Lab 10/02/24 15:14 Completed DiphenhydrAMINE INJ [Benadryl Inj] Med 10/02/24 11:25 Discontinued 25 mg IVP X1 ONE Famotidine Inj [Pepcid Inj] Med 10/02/24 11:25 Discontinued 20 mg IVP X1 ONE MethylPREDNISolone.* [SoluMEDROL Inj] Med 10/02/24 11:25 Discontinued 125 mg IVP X1 ONE Nitroglycerin [Nitrostat 1/150] Med 10/02/24 11:48 Discontinued 0.4 mg SL X1 ONE Vital Signs Vital signs: Vital Signs Temperature 98.3 F 10/02/24 08:59 Pulse Rate 81 10/02/24 08:59 Respiratory Rate 16 10/02/24 08:59 Blood Pressure 135/84 H 10/02/24 08:59 Pulse Oximetry (%) 97 10/02/24 08:59 Oxygen Delivery Method Room Air 10/02/24 08:59 Dizziness MDM Narrative MDM Narrative:: I, Elizabet Ellington am scribing for and in the presence of Dr. Fan. Patient data External records reviewed:: [facility] previous records (Reviewed last ED visit dated 09/11/24 discharged with the following: Dizziness) Clinical information provided by:: patient Social determinants that could affect healthcare access:: none Patient has the following chronic illnesses:: ACS, CAD, hypertension, labyrinthitis, PA. How is presenting disease/condition affected by chronic disease/condition?: exacerbated by Evaluation data The following diagnostics were reviewed and interpreted by me:: lab results, radiology exam(s) and EKG tracing(s) (EKG#1: EKG at 0904 hours. Interpreted by me: sinus rhythm, rate 77, Q waves in V1, V2, V3, no evidence of acute ischemia) Lab and/or radiology exams considered but not ordered:: none Interpretation Summary: Troponin #1 < 0.020, repeat troponin #2 < 0.020. RADIOLOGY Procedure(s): CT angio carotid w head w Accession Number(s): [id number] cc: Mike Zhou MD; Franci Fan MD; Jacinto Valadez PA-C~ Examination: CTA carotids with intravenous contrast CTA brain, head with intravenous contrast. 2-D sagittal, coronal reconstructions. 3-D reconstructions. Exam date and time: October 02, 2024 at 12:06 PM Indications: Syncopal episodes over the last 3 days CTDI: vol (mGy) 29.1 DLP: (mGycm) 174 Technique: Multiple CTA axial brain, head carotid images post intravenous contrast injection 75 cc, Isovue-370. 2-D sagittal, coronal reconstructions. 3-D reconstructions, 3-D post processing including vascular maximum intensity projection images. Low dose protocols were performed. One or more of the following dose reduction techniques were used; automated exposure control, adjustment of the mA and/or KV according to patient size, use of iterative reconstruction technique. Findings: Dominant left vertebral artery in the neck with no critical stenoses Calcification both carotid bifurcations but no significant stenoses involving the common carotid arteries carotid bifurcations or internal carotid arteries 4 mm anterior communicating artery aneurysm No cerebral large vessel arterial occlusions or thrombus No arterial dissection Impression: No significant neck arterial stenoses 4 mm anterior communicating artery aneurysm Dictated By: Mike Zhou MD Procedure(s): CT head/brain wo con Accession Number(s): [id number] cc: Mike Zhou MD; Franci Fan MD; Jacinto Valadez PA-C~ Examination: CT brain head without contrast. 2-D sagittal coronal reconstructions Date and time of exam:October 02, 2024 at 1158 hrs. Indications: Syncopal episodes beginning 3 days ago CTDI: vol (mGy):47.1 DLP: (mGycm):977 Technique: Multiple CT axial sections of the brain have been obtained, 5 mm slice thickness. Contrast has not been administered. 2-D sagittal, coronal reconstructions have been obtained Low dose protocols were performed. One or more of the following dose reduction techniques were used; automated exposure control, adjustment of the mA and/or KV according to patient size, use of iterative reconstruction technique. Findings: No significant ventricular enlargement. Intra-axial or extra-axial hemorrhage density is not seen. No mass effect or midline shift Basal cisterns are not remarkable. Fourth ventricle is midline. Cranial vault intact. Impression: Negative for acute hemorrhage, mass effect or midline shift Advise clinical correlation and follow-up accordingly Dictated By: Mike Zhou MD Procedure(s): CT cervical spine wo con Accession Number(s): [id number] cc: Mike Zhou MD; Franci Fan MD; Jacinto Valadez PA-C~ Examination: CT cervical spine without contrast 2-D sagittal reconstructions 2-D coronal reconstructions 3-D reconstructions. Exam date and time:October 02, 2024 at 1202 hrs. Indications: Syncopal episodes with falls over the last 3 days with injury to the neck, neck pain CTDI:vol (mGy) 8.21 DLP: (mGycm) 187 Technique: Multiple 2 mm axial sections of the cervical spine have been obtained. The coronal and sagittal reconstructions have been obtained. 3-D reconstructions have been obtained. Low dose protocols were performed. One or more of the following dose reduction techniques were used; automated exposure control, adjustment of the mA and/or KV according to patient size, use of iterative reconstruction technique. Findings: Axial sections demonstrate intact base of the skull. C1 exhibit satisfactory relationship to the odontoid. No acute cervical vertebral body fracture seen. Alignment posterior spinous processes satisfactory. Mild to moderate degenerative disc disease C4-C5, C5-C6 Impression: No acute cervical fracture. Dictated By: Mike Zhou MD --------- Procedure(s): XR chest 2V Accession Number(s): [id number] cc: Mike Zhou MD; Jacinto Valadez PA-C; Kenia Oliva~ Examination: PA lateral chest 2 views Technique: Upright PA lateral chest 2 views Exam date and time: October 12, 2024 0941 hrs. Comparison September 11, 2024 Indications: Onset acute chest pain and dizziness today Findings: Normal heart size The lungs are clear. Mild hyperexpansion No lobar pneumonia or pulmonary edema Impression: Mild hyperexpansion No lobar pneumonia or pulmonary edema Dictated By: Mike Zhou MD Medications / Prescriptions Medications or Prescriptions considered but not ordered:: none Medication administrations:: Medication Administration History Discontinued Medications Diphenhydramine HCl (Diphenhydramine Inj 50 Mg/Ml Vial) 25 mg IVP X1 ONE Stop: 10/02/24 11:26 Last Admin: 10/02/24 11:36 Dose: 25 mg Documented By: MCKENZIE Famotidine (Famotidine Inj 10 Mg/Ml Vial 2 Ml) 20 mg IVP X1 ONE Stop: 10/02/24 11:26 Last Admin: 10/02/24 11:36 Dose: 20 mg Documented By: MCKENZIE Methylprednisolone Sodium Succinate (Methylprednisolone Sod Succ 62.5 Mg/Ml 2ml Vial) 125 mg IVP X1 ONE Stop: 10/02/24 11:26 Last Admin: 10/02/24 11:36 Dose: 125 mg Documented By: MCKENZIE Nitroglycerin (Nitroglycerin 0.4 Mg Subl Btl #25) 0.4 mg SL X1 ONE Stop: 10/02/24 11:49 Last Admin: 10/02/24 12:37 Dose: Not Given Documented By: MARIVEL Non-Admin Reason: Patient Refused see above Consultations Consultation(s) initiated? (list below): Yes Consultation #1 (Physician, Specialty, Details): Discussed test HPI, PMHx, lab, radiology results and/or management with Dr. Mtz. Will consult an admission to the hospitalist. Time: 17:40 Consultation #2 (Physician, Specialty, Details): Discussed test HPI, PMHx, lab, radiology results and/or management with hospitalist. Will admit for further evaluation and management. Accepts patient for admission. Time: 17:55 Diagnosis Dizziness Differential Diagnosis: orthostatic hypotension, transient cerebral ischemia and other (dehydration, electrolyte imbalance) Most likely diagnosis given after review of the tests above:: Syncope Admission Indicated Admission indicated?: indicated Admission Request Was there a request for admission?: Yes Admission Attestation Admission request attestation: Discussed case with [] from Hospitalist service regarding admission. Discussed patients ED course, exam findings, labs, and radiology results. The Hospitalist [agrees,declines] to accept the patient for admission. Disposition Plan Disposition Plan: Admit Discharge Plan Plan Patient Disposition: Admit Acute Care w/in Hospital Prescriptions/Referrals Prescriptions/Med Rec: No Action nitroglycerin 0.4 mg tablet, sublingual 0.4 mg BUCCAL [id number] PRN (Reason: CHESTPAIN) Patient Comments: PLACE 1 TABLET UNDER TONGUE EVERY 5 MINS, UP TO 3 DOSES PER 15MIN NEEDED FOR CHEST PAIN GO TO ER docusate sodium 100 mg capsule 100 mg PO BID Patient Comments: TAKE 1 CAPSULE BY MOUTH TWICE A DAY albuterol sulfate 90 mcg/actuation HFA aerosol inhaler 2 puff INHALATION Q4H Patient Comments: INHALE 2 PUFFS BY MOUTH EVERY 4 HOURS NEEDED FOR WHEEZING Eliquis 2.5 mg Tablet 5 mg PO BID 30 Days Qty: 120 2RF aspirin 81 mg Tablet,Delayed Release (Dr/Ec) 81 mg PO QDAY 30 Days Qty: 30 2RF atorvastatin 20 mg Tablet 80 mg PO HS 30 Days Qty: 120 2RF clopidogrel 75 mg Tablet 75 mg PO QDAY 30 Days Qty: 30 2RF losartan 25 mg Tablet 50 mg PO QDAY 30 Days Qty: 60 2RF metoprolol succinate 25 mg Tablet Extended Release 24 Hr 50 mg PO QDAY 30 Days Qty: 60 2RF meclizine 25 mg tablet 25 mg PO QDAY PRN (Reason: dizziness) Qty: 10 0RF Proair Digihaler 90 mcg/actuation aero powdr breath act w/sensor 90 mcg inhalation Q6H PRN (Reason: shortness of breath or wheezing) Qty: 1 0RF fluticasone propionate [Flonase Allergy Relief] 50 mcg/actuation spray,suspension 2 spray intranasal QDAY Qty: 16 0RF Rx Instructions: administer into each nostril Antivert 50 mg tablet 50 mg PO BID PRN (Reason: dizziness or vertigo) Qty: 14 0RF nicotine 7 mg/24 hr patch 24 hour 7 mg topical QDAY Qty: 14 0RF meclizine 25 mg tablet 25 mg PO BID PRN (Reason: dizziness) Qty: 20 0RF meclizine 50 mg tablet 50 mg PO BID PRN (Reason: dizziness) Qty: 20 0RF ibuprofen 800 mg tablet 800 mg PO TID PRN (Reason: pain) Qty: 30 0RF Referrals: Jacinto Valadez PA-C [Primary Care Provider] - In 1 week Problem List Clinical Impression: Syncope Patient/Caregiver Discharge Instructions Education Materials: Causes of Syncope, Diagnosing Syncope, ED Fainting, Uncertain Cause Print Language: Hong Konger Stand Alone Forms: [employer] Award Info., Patient Portal Info Letter
--- NOTE | 2024-10-02 11:41 | PC.NURSE ---
PATIENT STATES HAVING SHARP CHEST PAIN. RECEIVED VERBAL ORDER FROM ER PROVIDER FOR SUBLINGUAL NITRO AND EKG.
--- NOTE | 2024-10-02 11:51 | XR_ITS ---
Examination: CTA carotids with intravenous contrast CTA brain, head with intravenous contrast. 2-D sagittal, coronal reconstructions. 3-D reconstructions. Exam date and time: October 02, 2024 at 12:06 PM Indications: Syncopal episodes over the last 3 days CTDI: vol (mGy) 29.1 DLP: (mGycm) 174 Technique: Multiple CTA axial brain, head carotid images post intravenous contrast injection 75 cc, Isovue-370. 2-D sagittal, coronal reconstructions. 3-D reconstructions, 3-D post processing including vascular maximum intensity projection images. Low dose protocols were performed. One or more of the following dose reduction techniques were used; automated exposure control, adjustment of the mA and/or KV according to patient size, use of iterative reconstruction technique. Findings: Dominant left vertebral artery in the neck with no critical stenoses Calcification both carotid bifurcations but no significant stenoses involving the common carotid arteries carotid bifurcations or internal carotid arteries 4 mm anterior communicating artery aneurysm No cerebral large vessel arterial occlusions or thrombus No arterial dissection Impression: No significant neck arterial stenoses 4 mm anterior communicating artery aneurysm
--- NOTE | 2024-10-02 12:41 | PRELIM_ITS ---
CT scan of the head without intravenous contrast (axial sections with sagittal, coronal and 3D reformats) October 02, 2024 at 1158 hours Clinical history: Altered mental status Comparison: Reference is made to the prior report dated April 26, 2021 Findings: There is no evidence of intracranial hemorrhage, mass effect or midline shift. There are periventricular white matter hypodensities, compatible with chronic small vessel ischemia. There is mild volume loss. There is atheromatous calcification of the intracranial arteries. The calvarium is unremarkable. The mastoid air cells are clear. There is moderate mucosal thickening in the right maxillary sinus, suggestive of chronic sinusitis. There is old fracture of the right zygomatic arch. Impression: 1. No evidence of intracranial hemorrhage, mass effect or midline shift. 2. Periventricular chronic small vessel ischemia and mild volume loss. 3. Other findings as described above. Report Electronically Signed By: Josh Lockwood 10/02/2024 12:40:49 PM [EST]
--- NOTE | 2024-10-02 12:41 | PRELIM_ITS ---
CT scan of the cervical spine without intravenous contrast (axial sections with sagittal, coronal and 3D reformats) October 02, 2024 at 1158 hours Clinical History: Neck pain Comparison: No prior study is available for comparison. Findings: There is no fracture or subluxation. There are degenerative changes in the spine in the form of anterior, posterior osteophytes, uncinate and facet degeneration. There are moderate degenerative changes in the atlantoaxial joint. There are disc osteophyte complexes at C4/C5 and C5/C6, causing moderate-to- severe spinal canal and moderate neural foraminal narrowing. The prevertebral soft tissues are unremarkable. There is partial ossification of the nuchal ligament. The lung apices are clear. Impression: 1. No evidence of fracture or subluxation. 2. Degenerative changes as described. 3. Other findings as described above. Report Electronically Signed By: Josh Lockwood 10/02/2024 12:40:41 PM [EST]
--- NOTE | 2024-10-02 12:41 | PRELIM_ITS ---
CT angiogram of the head and neck with intravenous contrast (axial sections with sagittal, coronal, oblique and 3D reformats) October 02, 2024 at 1204 hours Clinical History: Chest pain Comparison: Concurrent noncontrast CT head performed today. Findings: Head: There are atheromatous calcifications in the cavernous and supraclinoid segments of the internal carotid arteries bilaterally causing less than 50% stenosis. The middle and anterior cerebral arteries are patent bilaterally. The intracranial vertebral arteries are patent. There is atheromatous calcification in the left vertebral artery. The vertebrobasilar junction, basilar and posterior cerebral arteries are patent. No evidence of large vessel occlusion, critical stenosis. There is a 4 mm sacular aneurysm from the anterior communicating artery (axial image 58/257). There is moderate mucosal thickening in the right maxillary sinus, suggestive of chronic sinusitis. Neck: The aortic arch to the extent visualized as well as the origins of the right brachiocephalic, left common carotid, and left subclavian arteries demonstrate atheromatous calcification and are patent. There is mild stenosis at the origin of he left subclavian artery due to noncalcified mural plaque. There are calcified and noncalcified plaques at bilateral carotid bulbs and proximal internal carotid arteries, causing mild stenosis of the left proximal internal carotid artery after its origin (sagittal image 43/113). The common carotid arteries, carotid bulbs, and internal and external carotid arteries are otherwise patent. The origins of the vertebral arteries are unremarkable. The left vertebral artery is dominant. No evidence of vascular occlusion, critical stenosis, dissection or aneurysm. The soft tissues of the neck are unremarkable. Degenerative changes are identified in the spine. Impression: Head: No evidence of large vessel occlusion or critical stenosis. A 4 mm sacular aneurysm from the anterior communicating artery. Neck: No evidence of vascular occlusion, critical stenosis, dissection or aneurysm. Other findings as described above. Report Electronically Signed By: Johs Lockwood 10/02/2024 12:40:58 PM [EST]
--- NOTE | 2024-10-02 14:44 | PC.NURSE ---
PT STATING THAT HE WANTS TO TRANSFERRED TO [place]. ADVISED PT THAT WE CANT KEEP HIM HERE AND THAT IF HE WANTS TO LEAVE WE CAN GIVE AN AMA PAPER. HE SAID WHY CANT YOU CALL THE AMBULANCE TO TRANSFER TO [place]. ADVISED THAT WE CANT JUST CALL THE AMBULANCE TO TRANSPORT HIM. HE STARTED TO BE AUGMENTATIVE AND ADVISED I WILL INFORM PROVIDER
--- NOTE | 2024-10-02 15:35 | PD.HHCONS ---
[facility] Consultation - Hospitalist Data of Consult Primary Care Provider: Jacinto Valadez PA-C Consult Narrative History of present illness: Patient is a 64-year-old male with history of CAD status post stenting X multiple times, not currently being followed by any research and evaluation manager, GERD, hyperlipidemia, hypertension, COPD, migraine headaches, and type 2 diabetes mellitus, who presented with a chief complaint of syncope. Patient was sitting in his bed when the episode happened. He felt some headaches on the left side of his head in addition to some numbness on his left side of the face few seconds prior to the episode. He reported feeling chest pain that is tight in nature and substernal. It does not radiate. He did not try nitrates which is a medication that he takes for stable angina, as this medication causes him to have episodes of migraines. He reported mild shortness of breath that is associated with the chest pain. No nausea or vomiting. Patient reported similar episode that happened about 1 month ago. At that time, he eloped before completing the workup. He mentioned that he does not follow with any heart doctor and does not take any medication. He mentioned that he is not able to get insurance as he is less than 65 or referral to cardiology. He reported no drug allergies. In the ED, his vital signs were stable. His first set of troponin is negative. Head CT is negative for acute intracranial pathologies. CT neck showed no acute fractures. CTA head/neck showed no major vessel occlusion. I discussed the case per ED physician request and assessed/examined the patient at the bedside. Past medical history as above. cc:: cc: Review of Systems Review of Systems Narrative Review of Systems: 12 point of system reviewed. All negative except as mentioned in the HPI Meds Home Medications and Allergies Home Medications ?Medication ?Instructions ?Recorded ?Confirmed ?Type albuterol sulfate 90 mcg/actuation 2 puff inhalation Q4H 10/05/21 11/18/21 History aerosol inhaler docusate sodium 100 mg capsule 100 mg PO BID 10/05/21 11/18/21 History nitroglycerin 0.4 mg sublingual 0.4 mg buccal [id number] PRN CHESTPAIN 10/05/21 09/06/22 History tablet Allergies Allergy/AdvReac Type Severity Reaction Status Date / Time almond oil Allergy Severe Difficulty Verified 10/02/24 08:37 Breathing Iodinated Contrast Media Allergy Severe Hives Verified 10/02/24 08:37 pecan nut Allergy Severe Difficulty Verified 10/02/24 08:37 Breathing tree nut Allergy Severe Difficulty Verified 10/02/24 08:37 Breathing walnut Allergy Severe Difficulty Verified 10/02/24 08:37 Breathing Exam Vital Signs Temp Pulse Resp BP Pulse Ox O2 Del Method 98.1 F 81 17 140/83 H 97 Room Air 10/02/24 14:29 10/02/24 14:29 10/02/24 14:29 10/02/24 14:29 10/02/24 14:29 10/02/24 14:29 Narrative General: Alert and oriented x3. In no acute distress. Eyes: Pupils are equal and reactive to light bilaterally. HEENT: Atraumatic, normocephalic. No JVD noted. Cardiovascular: Normal S1 and S2. Normal rate and regular rhythm. No murmurs appreciated. No peripheral pitting edema noted. No JVD noted. Respiratory: No respiratory distress. Lungs are clear to auscultation bilaterally. No wheezing or crackles heard. Abdomen: Soft, nontender, nondistended. Skin: No rash. Musculoskeletal: No gross injuries. Able to move all 4 extremities. Neuro: Alert and oriented x3. Sensation is intact throughout. Strength is 5/5 and symmetric. No focal neuro deficits. Psych: Normal affect and mood. Results - Hospitalist Labs Diagrams: 10/02/24 09:40 10/02/24 09:40 Labs: Short CBC 10/02/24 Range/Units 09:40 WBC 8.9 (3.8-10.6) Thou/mm3 Hgb 16.3 H (13.5-16.0) g/dL Hct 46.5 (41.0-53.0) % Plt Count 321 (140-440) Thou/mm3 BMP 10/02/24 09:40 Sodium 141 Potassium 4.0 Chloride 107 Carbon Dioxide 28.0 BUN 17 Creatinine 0.8 Glucose 132 H Calcium 9.4 Cardiac Enzymes 10/02/24 Range/Units 09:40 Troponin I < 0.020 (0.0-0.045) ng/mL Liver Function 10/02/24 Range/Units 09:40 Total Bilirubin 0.4 (0.3-1.2) mg/dL AST 17 (0-34) U/L ALT 19 (10-49) U/L Alkaline Phosphatase 68 (46-116) U/L Albumin 4.6 (3.4-4.8) gm/dL Assessment & Plan -Hospitalist Patient Synopsis 64-year-old male with history of CAD status post stenting who presented with a chief complaint of syncope and chest pain. Syncope Chest pain on chest Left-sided headaches Left facial numbness Complicated migraine Patient does have extensive cardiac history as well as history of refractory migraines as per him. This extensive cardiac history is concerning for a cardiac etiology. First troponin is negative. He does not follow with any research and evaluation manager currently. Differential diagnosis of the syncope includes cardiac versus in the setting of complicated migraine versus vasovagal versus orthostatic hypotension EKG reviewed: Normal sinus rhythm. No evidence of acute NC Plan: Sent another set of troponin Recommend migraine cocktail that includes IV Benadryl, IV Reglan, and IV ketorolac Recommend restarting the patient's heart medications including aspirin, Plavix, and atorvastatin Patient will need cardiac workup including echocardiogram. Question is whether this needs to be done as inpatient or outpatient. Recommend cardiology input Check orthostatic vital signs Establish outpatient cardiology follow-up. Discussed with social worker psychiatric in the ED hold talk to the patient GERD Recommend pantoprazole 40 mg daily Essential hypertension Type 2 diabetes mellitus COPD without exacerbation He is off medications. Recommend to check A1c. Albuterol as needed. Recommend to start a beta-rachna for the hypertension. Follow-up with cardiology as outpatient. Quality Measures Quality Measures none
[2024-10-02 15:44] LABS: Troponin I < 0.020 ng/mL (0.0-0.045)
--- NOTE | 2024-10-02 18:13 | PD.RESEVENT ---
Documentation for date of: 10/02/24 Event Note Event Note: 64-year-old male patient with significant medical history of CAD s/p multiple stents (no cardiology follow up) X multiple times, HLD, HTN, migraine, DM2 and COPD came to ED for syncope. Episode of syncope occurred while patient was sitting in bed earlier in the day. Prior to syncope patient had left side headache and numbness of left side of face. Patient was also endorsing substernal chest pain. He did not take any nitrates as it causes him episodes of migraines. Patient denied nausea, vomiting or other associated symptoms. Patient did have another episode of syncope x1 month ago, went to [facility] but left AMA before any workup. ED vitals were WNL, trops were negative x2. Head CT and neck ST negative. CTA of head/neck was significant for 4 mm anterior communicating artery aneurysm. Initially patient was to follow up outpatient for further testing, but after speaking to neurologist Dr. Mtz, recommendation was made for MRI and EEG studies. Case was discussed with attending and patient will be signed off to night team. This patient care was discussed with my attending Dr. 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 .
--- NOTE | 2024-10-02 19:48 | ECHO_ITS ---
Transthoracic Echo Report Ht (in): 67 Wt (lb): 174 Exam Location: Echo Lab Status: Emergency Refrigeration Tech: Yu Corbin Indications: Procedure Performed: BP: 142 / 82 HR: 84 Technical Quality: Technically difficult study MEASUREMENTS (Male / Female) Normal Values 2D ECHO LA Volume Index 20.8 cm?/m? 16 - 28 cm?/m? DOPPLER AV Peak Velocity 162.0 cm/s AV Peak Gradient 10.5 mmHg AV Mean Gradient 5.0 mmHg AV Velocity Time Integral 30.6 cm LVOT Peak Velocity 135.0 cm/s LVOT Peak Gradient 7.3 mmHg LVOT Velocity Time Integral 24.2 cm MV Area PHT 4.2 cm? Mitral E Point Velocity 55.3 cm/s Mitral A Point Velocity 75.2 cm/s Mitral E to A Ratio 0.7 LV E' Lateral Velocity 6.3 cm/s Mitral E to LV E' Lateral Ratio 8.8 LV E' Septal Velocity 5.4 cm/s Mitral E to LV E' Septal Ratio 10.2 TR Peak Velocity 212.0 cm/s TR Peak Gradient 18.0 mmHg FINDINGS Left Ventricle Normal left ventricular size and systolic function with no obvious regional wall motion abnormalities. Normal left ventricular diastolic filling pattern for age. The ejection fraction is visually estimated at 55-60%. Right Ventricle The right ventricle is normal in size and systolic function. Left Atrium The left atrium is normal by two-dimensional, color flow and Doppler imaging with no structural abnormalities, no thrombus formation present. Right Atrium The right atrium is normal by two-dimensional imaging, color flow and Doppler imaging with no structural abnormalities, no thrombus formation present. Atrial Septum The interatrial septum appears normal with no evidence of a shunt. Aorta The aorta is normal by two-dimensional, color flow and Doppler interrogation. Mitral Valve The mitral valve is normal by two-dimensional, color flow and Doppler interrogation. There is trace mitral valve regurgitation, stenosis or prolapse. Aortic Valve The aortic valve is trileaflet and normal by two-dimensional, color flow and Doppler interrogation. There is no significant aortic valve regurgitation. Tricuspid Valve The tricuspid valve is normal by two-dimensional, color flow and Doppler interrogation. There is trace tricuspid valve regurgitation. Pulmonic Valve The pulmonic valve is not well visualized. There is no significant pulmonic valve regurgitation. Vessels The pulmonary artery appears normal. The inferior vena cava pulmonary and hepatic veins appear normal. Pericardium The pericardium is normal by two-dimensional imaging. There is no significant pericardial effusion. CONCLUSIONS Indication: Presycope, CAD Normal LV size and low normal LV function with EF around 50%. Possible apical akinesis and unable to rule out any LV thrombus at the apex due to suboptimal images RV is normal in size and systolic function. Trace MR and TR. Waldo Brooks (Electronically Signed) Final Date: 03 October 2024 13:40
--- NOTE | 2024-10-02 20:18 | PD.RESHP ---
Documentation for date of: 10/02/24 [facility] History of Present Illness History of present illness: This is a 64-year-old male with PMHx of extensive CAD, s/p stent times x8 in 2018, HLD, HTN, COPD, migraine headaches, T2DM, GERD presenting with a chief complaint of dizziness and lightheadedness. Patient was sitting outside in his yard earlier this morning. Reported feeling dizzy and lightheaded while getting up from chair. He did not fall or lose consciousness but was able to let himself down to the ground. He remembers the event, recalls his next-door neighbor rushing for help and states he was the one who told him to call the ambulance. Symptoms were associated with chest pain lasting about 2 to 3 minutes. Concurrently, he reports left-sided facial weakness/numbness along with left-sided headaches that started 2 nights ago. Usually he takes ADVIL for his migraines and they often help. At the time of the encounter, he was not experiencing any symptoms. Reports frequent similar episodes occurring over the last year. Last 1 was 2 weeks ago for which she went to [facility]. At the time. They did a cardiac workup which was negative according to patient. Concurrently, he has frequent migraines Reports frequent episodes of generalized shaking that occur at random, usually resolved spontaneously within minutes. Denies loss of consciousness with or bowel or bladder loss with these episodes. He has never been worked up for this. He is a s/p cardiac arrest in 2018 for which she was hospitalized in [place] and had 8 stents placed. Currently on ASPIRIN which he takes daily. Not taking any other medications. Reports recurrent chest pain for which she was prescribed NITROGLYCERIN but does not take it as it causes him headaches. Patient is a 64-year-old male with history of CAD status post stenting X multiple times, not currently being followed by any marine engine mechanic, GERD, hyperlipidemia, hypertension, COPD, migraine headaches, and type 2 diabetes mellitus, who presented with a chief complaint of syncope. Denies severe headaches, fever, chills, normal weight changes, exertional chest pain, dyspnea, cough, GI or urinary symptoms. He has been eating normal, stays dehydrated. He has a PCP in [facility], states unsatisfied with current provider. He does not have a marine engine mechanic in town, [place], has transportation issues. I provided the option to follow-up at the [facility]. Please include contact information on discharge. ED COURSE: Vitals relatively normal. CBC showed Hgb 16.3, baseline as high as 18.1. Normal coag studies. History significant for lipase 149, otherwise relatively normal. EKG shows sinus rhythm, no acute ST changes, old anterior septal myocardial infarction. CXR showed mild hyperinflation, no pneumonia or edema. Cervical spine CT was negative for acute cervical fracture. CT head negative for acute pathology. CTA head/neck showed 4 mm anterior communicating artery aneurysm, but no significant arterial stenosis. Carotid artery US from 07/2024 showed 0?10% bilateral 0-10% stenosis. Patient admitted for presyncope workup. PMHx: CAD, HLD, HTN, COPD, migraine headaches, T2DM, GERD PSHx: Distal history of partial colectomy MEDS: Currently only taking ASPIRIN ALLERGIES: Almonds, IODINE contrast, pecan, nuts. FHx: Dad of a heart attack at 50s. SH: [place], daily tobacco and marijuana smoker, occasional alcohol. Exam Vital Signs Temp Pulse Resp BP Pulse Ox O2 Del Method O2 Flow Rate 98.0 F 82 17 147/91 H 96 Room Air 2 10/02/24 17:55 10/02/24 17:55 10/02/24 17:55 10/02/24 17:55 10/02/24 17:55 10/02/24 17:55 10/02/24 16:24 Narrative Exam GENERAL Normal appearing male, NAD, on room air. HEENT NCAT.?MULU. Oral mucosa is moist. Patent Nares NECK Supple, nontender, no thyromegaly, no meningismus, no JVD, no step offs CHEST RRR, no m/g/r CTAB, no w/r/r. Symmetrical chest rise. No intercostal subcostal retraction Atraumatic, nontender, no crepitus, symmetrical expansion. ABDOMEN Soft, flat, nontender. No guarding/rebound tenderness/masses. Bowel sounds presents. Old healed surgical scar over mid abdomen. EXTREMITIES Nontender, no cyanosis, no edema No edema/cyanosis.? SKIN Warm and dry, no jaundice/rashes. NEUROMUSCULAR No lumbar or midline, no CVA, no paraspinal muscle spasm or tenderness. Moves all 4 extremities well, with full ROM and good CSM. CHERRY x4, CN II-XII grossly intact. No focal neurologic deficits. PSYCHIATRY Normal mood and affect, cooperative, no SI or HI or hallucinations. Results: Labs 10/02/24 09:40 10/02/24 09:40 Labs: Short CBC 10/02/24 Range/Units 09:40 WBC 8.9 (3.8-10.6) Thou/mm3 Hgb 16.3 H (13.5-16.0) g/dL Hct 46.5 (41.0-53.0) % Plt Count 321 (140-440) Thou/mm3 BMP 10/02/24 09:40 Sodium 141 Potassium 4.0 Chloride 107 Carbon Dioxide 28.0 BUN 17 Creatinine 0.8 Glucose 132 H Calcium 9.4 Cardiac Enzymes 10/02/24 10/02/24 Range/Units 09:40 15:14 Troponin I < 0.020 < 0.020 (0.0-0.045) ng/mL Liver Function 10/02/24 Range/Units 09:40 Total Bilirubin 0.4 (0.3-1.2) mg/dL AST 17 (0-34) U/L ALT 19 (10-49) U/L Alkaline Phosphatase 68 (46-116) U/L Albumin 4.6 (3.4-4.8) gm/dL Quality Measures Quality Measures none Medications Home Medications and Allergies Home Medications ?Medication ?Instructions ?Recorded ?Confirmed ?Type albuterol sulfate 90 mcg/actuation 2 puff inhalation Q4H 10/05/21 11/18/21 History aerosol inhaler docusate sodium 100 mg capsule 100 mg PO BID 10/05/21 11/18/21 History nitroglycerin 0.4 mg sublingual 0.4 mg buccal [id number] PRN CHESTPAIN 10/05/21 09/06/22 History tablet Allergies Allergy/AdvReac Type Severity Reaction Status Date / Time almond oil Allergy Severe Difficulty Verified 10/02/24 08:37 Breathing Iodinated Contrast Media Allergy Severe Hives Verified 10/02/24 08:37 pecan nut Allergy Severe Difficulty Verified 10/02/24 08:37 Breathing tree nut Allergy Severe Difficulty Verified 10/02/24 08:37 Breathing walnut Allergy Severe Difficulty Verified 10/02/24 08:37 Breathing Visit Medications Acetaminophen (Acetaminophen 325 Mg Tablet) 650 mg PO Q6H PRN PRN Reason: PAIN SCALE 1-3 (mild Stop: 11/01/24 19:47 Acetaminophen (Acetaminophen 325 Mg Tablet) 650 mg PO Q6H PRN PRN Reason: Fever >100 Stop: 11/01/24 19:47 Aspirin (Aspirin Ec 81 Mg Tabec) 81 mg [facility] Stop: 11/02/24 08:59 Atorvastatin Calcium (Atorvastatin Calcium 20 Mg Tablet) 80 mg PO HS [facility] Stop: 11/01/24 20:59 Dextrose (Dextrose 50%-Water Inj 50 Ml Syringe) 25 ml IV Q15MIN PRN PRN Reason: BG 50-70 responsive npo pt Stop: 11/01/24 19:52 Dextrose (Dextrose 50%-Water Inj 50 Ml Syringe) 50 ml IV Q15MIN PRN PRN Reason: BG <50 OR BG <70 & pt unresponsive Stop: 11/01/24 19:52 Glucagon (Glucagon Inj 1 Mg Vial) 1 mg IM Q15MIN PRN PRN Reason: BG <70, and no IV access Insulin Human Lispro (Insulin Lispro (Admelog) 1 Unit/0.01 Ml Unit) 0 unit SC [facility]; Protocol Stop: 11/01/24 20:59 Labetalol HCl (Labetalol Inj 5 Mg/Ml Vial 20 Ml) 10 mg IVP Q6H PRN PRN Reason: BP >220/110 Stop: 11/01/24 19:58 Nicotine (Nicotine Patch 14 Mg/24 Hr Patch.Td24) 14 mg TOP QDAY [facility] Stop: 11/01/24 20:14 Nitroglycerin (Nitroglycerin 0.4 Mg Subl Btl #25) 0.4 mg SL Q5MIN PRN PRN Reason: CHEST PAIN Ondansetron HCl (Ondansetron Inj 2 Mg/Ml Inj 2 Ml) 4 mg IV Q6H PRN; Protocol PRN Reason: NAUSEA OR VOMITING Stop: 11/01/24 19:47 Pantoprazole Sodium (Pantoprazole Inj 40 Mg Vial) 40 mg IVP QDAY [facility] Stop: 11/02/24 08:59 Discontinued Medications Diphenhydramine HCl (Diphenhydramine Inj 50 Mg/Ml Vial) 25 mg IVP X1 ONE Stop: 10/02/24 11:26 Last Admin: 10/02/24 11:36 Dose: 25 mg Famotidine (Famotidine Inj 10 Mg/Ml Vial 2 Ml) 20 mg IVP X1 ONE Stop: 10/02/24 11:26 Last Admin: 10/02/24 11:36 Dose: 20 mg Methylprednisolone Sodium Succinate (Methylprednisolone Sod Succ 62.5 Mg/Ml 2ml Vial) 125 mg IVP X1 ONE Stop: 10/02/24 11:26 Last Admin: 10/02/24 11:36 Dose: 125 mg Nitroglycerin (Nitroglycerin 0.4 Mg Subl Btl #25) 0.4 mg SL X1 ONE Stop: 10/02/24 11:49 Last Admin: 10/02/24 12:37 Dose: Not Given Assessment & Plan Plan In summary: 64-year-old male with PMHx of extensive CAD, s/p stent times x8 in 2018, HLD, HTN, COPD, migraine headaches, T2DM, GERD presenting with a chief complaint of dizziness and lightheadedness. Admitted for presyncope workup. Appreciate recommendations from cardiology and neurology team. Presyncope Stroke rule out DDx: Orthostatics, complex migraine, seizures, arrhythmia, TIA vs stroke (less likely), vasovagal, chronic polycythemia, cannabis use. It appears he has recurrent episodes of dizziness while getting up from a seated position. He has associated chest pain with these episodes that usually resolve spontaneously. Also has frequent migraines, most recent episode 2 days ago associated with left-sided headache and facial numbness/weakness. Hs extensive cardiac history with cardiac arrest and multiple stents. Reports frequent episodes of pulsating sensations in his chest and throughout his extremities. Also reports diffuse body shaking lasting minutes, without LOC or incontinence. His picture is possibly multifactorial given cardiac history, migraines, ? seizures, cannabis use, chronic polycythemia. However presentation more likely fits the picture of orthostatics. GLUCOSE normal, vitals WNL, no significant lab abnormalities. No acute findings on EKG, CXR, CT head. CTA head/neck showed 4 mm anterior communicating artery aneurysm, but no significant arterial stenosis. Carotid artery US from 07/2024 showed 0?10% bilateral 0-10% stenosis. Neurological exam is benign. ? Admit med/tele ? Seizure precaution ? Head elevation >30 degrees ? Permissive hypertension ? Continue LABETALOL 10 mg for BP >220/110 ? Continue TYLENOL for fever ? Continue home ASPIRIN 81 mg daily ? Pending speech evaluation ? Pending physical therapy evaluation ? Pending lipid panel, TSH, A1c, echocardiogram, orthostatics ? Pending EEG and MRI ? Pending neurology recommendations Chest pain Hx cardiac arrest Hx extensive CAD, stent x 8 HTN, HLD Concerning for anginal pain given extensive history of CAD. Has chest pain occur at the same time as presyncope, usually resolve spontaneously. Pain is stabbing in nature, substernal, non-radiating. 2021 seen by cardiology here for atypical chest pain, at the time he was recommended cardiac stress test but he did not follow up. Prescribed NITROGLYCERIN but does not take secondary to headache. 2018 he had cardiac arrest, had 8 stents at [facility]. Currently on ASPIRIN daily, no lipid modulators. Troponin normal. EKG was sinus with old anterior lateral changes but no acute ST changes. ASCVD guidlines recommends high-intensity statins. He is high risk for ACS/CVA given PMHx. At the time seen, no chest pain, vitals relatively normal. ? Continue ASPIRIN 81 mg daily ? Continue ATORVASTATIN 80 mg HS ? Continue NITROGLYCERIN PRN ? Pending Q6H repeat trops ? Pending echocardiogram ? Pending TSH, lipids ? pending as mentations ?Polycythemia Hgb 16.3, previously as high as 18.1. Never had workup for polycythemia. Maybe related to tobacco use. ? Consider hematology work-up including JAK2 T2DM Glucose 136. No recent A1C. ? Sliding scale, Accu-Cheks ? Pending A1c GERD ? Continue PROTONIX daily COPD active tobacco smoker Active marijuana user No signs of COPD exacerbation. ? Recommended cessation given high cardiovascular, stroke risk ? Continue daily NICOTINE patch Patient had asked to revisit CODE STATUS. He decided to proceed with DNR. Will honor his wishes. Health maintenance Diet: Cardiac, CHO consistent GI prophylaxis: PROTONIX DVT prophylaxis: SCD Antibiotics: Not indicated CODE STATUS: DNR Disposition: Pending presyncope workup. Patient case was discussed with attending, Ck Lagos MD. Fan Enriquez DO PGYI Attending Provider Attestation/Addendum I have examined the patient, reviewed labs and imaging findings, discussed the case with the resident(s), and reviewed entered orders. I agree with the plan of care as outlined in this note, with these additional summaries/recommendations: Patient is a 64-year-old male with a medical history of CAD status post multiple stents, STEMI, LV thrombus, primary hypertension, HFrEF, COPD, diabetes mellitus type 2, hyperlipidemia, and migraine headaches presents to [facility] emergency department on 10/02/2024 of chief complaint of presyncopal episode. Patient was sitting in the bed when episode happened. Unclear if he actually lost consciousness. He did endorse headache and left-sided numbness prior to the episode. He also endorsed chest pain at that time which has now resolved. Patient was previously hospitalized in [place] for similar episode although he left AGAINST MEDICAL ADVICE before full workup. Neurology consulted and recommends admission for MRI/EEG and thus hospitalist team was consulted for continuation of care. #Presyncope vs syncope #Cerebral artery aneurysm # Complex migraine headaches Unclear at this time if patient actually lost consciousness DDx: Complex migraine vs orthostatic hypotension vs ?LV thrombus vs TIA vs vasovagal vs arrhythmia vs seizure CT head wo: Negative for acute hemorrhage, mass effect or midline shift CTA H & N: 4 mm anterior communicating artery aneurysm, but no significant arterial stenosis EKG: Sinus rhythm, rate 77, no LAD, QTc 397 Plan: Neurology consulted, recommendations appreciated. Order MRI brain, EEG, TSH, A1c, lipid panel, orthostatics. No evidence of arrhythmia thus far. Patient does have a history of LV thrombus dating back to 2022 and we will obtain echocardiogram to make sure this has resolved and not contributing to patient's symptoms. Physical therapy consultation. Start aspirin and high intensity statin for now. Migraine cocktail as needed. Outpatient follow-up for cerebral artery aneurysm. Chest Pain Extensive CAD history History of LV thrombus HFrEF Patient denies any chest pain or shortness of breath when seen in the emergency department but states he had symptoms prior. He currently does not have a marine engine mechanic and appears to have poor outpatient follow-up. Not in CHF exacerbation at this time. Patient has reportedly had 8-9 stents placed in the past. Troponin negative X2 on admission. EKG: Sinus rhythm, rate 77, no LAD, QTc 397 09/06/22 patient was hospitalized at [facility] for STEMI. Underwent successful PCI with stent placement of LAD and LCX. Left ventriculogram showed mild LV systolic dysfunction with apical akinesis and EF of 40 to 45% with significant apical thrombus. At that time patient was discharged with aspirin 81 mg p.o. daily, Plavix 75 mg p.o. daily, Eliquis 2.5 mg p.o. twice daily, atorvastatin 20 mg p.o. daily, losartan 25 mg p.o. daily, and metoprolol succinate 25 mg ER daily. Plan: Consult cardiology, recommendations appreciated. Start aspirin 81 mg p.o. daily and atorvastatin 20 mg. Appreciate cardiology recommendations on if Plavix is still needed given his extensive cardiac history. Order echocardiogram to evaluate resolution of LV thrombus. Patient is pending orthostatic vital signs and will resume home losartan and metoprolol if negative and continue to titrate GDT for HFrEF. # COPD: Not in acute exacerbation at this time. CXR: Hyperexpansion. DuoNebs as needed #?DMII A1Cs on file only indicate prediabetes with A1c's trending in the 5.7-5.9 range Repeat A1c ordered Plan: Start sensitive insulin sliding scale with Accu-Cheks for now. Pending repeat A1c and patient will likely not require hypoglycemics on discharge. Dr. Lagos
[2024-10-02] MEDS: INSULIN LISPRO (AdmeLOG) 1 UNIT/0.01 ML UNIT SC (21:15)
[2024-10-02] MEDS: ATORVASTATIN CALCIUM 20 MG TABLET 80 MG PO (21:16)
[2024-10-02] MEDS: ACETAMINOPHEN 325 MG TABLET 650 MG PO (21:47)
--- NOTE | 2024-10-02 22:12 | PC.NURSE ---
REPORT CALLED TO LC GAMEZ. ALL QUESTIONS ASKED AND ANSWERED. PATIENT TRANSFERRED TO ROOM WITHOUT DIFFICULTY. PATIENT REMAINS ON ROOM AIR.
--- NOTE | 2024-10-02 22:38 | PC.NURSE ---
PATIENT REFUSED TO GO TO ROOM ON MONITOR OR ON HOSPITAL STRETCHER. PATIENT TRANSFERRED TO ROOM BY WHEELCHAIR WITHOUT PROBLEMS.
[2024-10-02 22:44] LABS: Troponin I < 0.020 ng/mL (0.0-0.045)
--- NOTE | 2024-10-02 22:45 | PC.NURSE ---
EXPLAINED TO PATIENT TO PUT BED ALARM ON FOR HIS OWN SAFETY DUE TO POSSIBLE RISK FOR FALL BUT STILL REFUSED.
[2024-10-03] VITALS: BP 140/84; PULSE 79; PULSE 82; RESP 16; TEMP 36.5; O2SAT 95
[2024-10-03 04:00] VITALS: BP 142/82; PULSE 80; PULSE 84; RESP 18; TEMP 36.1; O2SAT 93
[2024-10-03 05:42] LABS: Basophils % (Auto) 0 % (0-2.5); Eosinophils % (Auto) 0 % (0-10); Hematocrit 45.3 % (41.0-53.0); Immature Granulocytes % (Auto) 1 % (0-0); Lymphocytes % (Auto) 13 % (10-50); Mean Corpuscular HGB Conc 35.3 g/dl (31.0-37.0); Mean Corpuscular Hemoglobin 31.2 pg (25.0-35.0); Mean Corpuscular Volume 88 fL (80-100); Monocytes # (Auto) 1.2 Thou/mm3 (0.0-0.8); Monocytes % (Auto) 8 % (0-12); Neutrophils # (Auto) 11.7 Thou/mm3 (1.8-7.7); Neutrophils % (Auto) 78 % (37-80); Nucleated Red Blood Cell % 0 /100 WBC (0); Platelet Count 301 Thou/mm3 (140-440); RDW Standard Deviation 46.8 fL (35.1-43.9); Red Blood Count 5.13 Miln/mm3 (4.50-5.90)
--- NOTE | 2024-10-03 05:46 | RESP.EEG ---
EEG has been completed and is ready for MD interpretation
[2024-10-03 06:11] LABS: Glucose Estimated Average 117 mg/dL (80-131); Hemoglobin A1C 5.7 % Hgb (4.8-6.0)
[2024-10-03 06:14] LABS: Alanine Aminotransferase 18 U/L (10-49); Albumin, Serum 4.7 gm/dL (3.4-4.8); Alkaline Phosphatase 65 U/L (46-116); Anion Gap 7 (7-16); Aspartate Amino Transferase 14 U/L (0-34); BUN/Creatinine Ratio 19 Ratio (12-20); Bilirubin,Total 0.7 mg/dL (0.3-1.2); Blood Urea Nitrogen 15 mg/dL (9-23); Calcium 9.6 mg/dL (8.3-10.6); Calcium (Corrected) 9.6 mg/dL (8.5-10.1); Carbon Dioxide 24.7 mMol/L (20.0-31.0); Chloride 106 mMol/L (98-107); Cholesterol 290 mg/dL (132-200); Creatinine (Component) 0.8 mg/dL (0.6-1.3); Estimated Creatinine Clearance 87.2 mL/min (>60); Free T4 (Free Thyroxine) 1.22 ng/dL (0.89-1.76); Globulin 2.4 gm/dL (2.3-3.5); Glucose 181 mg/dL (74-106); HDL Cholesterol 58 mg/dL (40-60); LDL Cholesterol,Calculated 216 mg/dL (0-130); Magnesium 1.9 mg/dL (1.6-2.6); Osmolality,Calculated 281 (275-295); Phosphorous 3.7 mg/dL (2.4-5.1); Potassium 4.3 mMol/L (3.4-5.1); Sodium 138 mMol/L (136-145); Thyroid Stimulating Hormone 0.62 uIU/mL (0.55-4.78); Total Protein 7.1 gm/dL (5.7-8.2); Triglycerides 78 mg/dL (30-150); eGFR > 60 See Note
[2024-10-03] MEDS: INSULIN LISPRO (AdmeLOG) 1 UNIT/0.01 ML UNIT SC ×2 (07:35→20:11)
[2024-10-03 08:00] VITALS: BP 143/83; PULSE 85; RESP 19; TEMP 36.4; O2SAT 94
--- NOTE | 2024-10-03 08:52 | PC.NURSE ---
Patient is refusing bed alarm and refusing to stay in bed. He is here for syncopy. I educated him on the importance to stay in bed. Patient does not need to fall and hurt himself. Patient is still refusing to lay in bed. Will continue to monitor patient.
[2024-10-03] MEDS: ASPIRIN EC 81 MG TABEC PO (08:58)
[2024-10-03] MEDS: NICOTINE PATCH 14 MG/24 HR PATCH.TD24 TOP (08:58)
[2024-10-03] MEDS: PANTOPRAZOLE INJ 40 MG VIAL IVP (08:59)
--- NOTE | 2024-10-03 09:05 | PC.NURSE ---
Patient still refusing bed alarm and to stay in bed. Will continue to monitor patient.
[2024-10-03 12:00] VITALS: BP 129/75; PULSE 75; RESP 18; TEMP 36.4; O2SAT 96
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
[2024-10-03 14:56] LABS: Amphetamine/Methamp Scrn,U Negative (Negative); Barbiturate Screen,Urine Negative (Negative); Benzodiazepines Screen,Urine Negative (Negative); Benzoylecgonine Screen, Ur Negative (Negative); Fentanyl Screen,Urine Negative (Negative); Opiate Screen,Urine Negative (Negative); THC Screen,Urine Positive (Negative)
--- NOTE | 2024-10-03 15:30 | PC.SS ---
This is 64-year-old, , single male who presented to the ED due to suffering from syncope. Patient appeared alert and oriented to self, place and situation. Patient reported that he resides at home. Patient is independent, no DME use. Patient's new PCP will be the resident clinic. Patient assigned his mother, Reyna as his emergency contact. When medically clear, patient will return home, his truck is parked outside the hospital. Discharge plan: Home Pending MRI.
--- NOTE | 2024-10-03 15:43 | ESPR_ITS ---
Documentation for date of: 10/03/24 Subjective Subjective Interval history: Patient seen at bedside. He is a 64-year-old male with a past medical history of hypertension, COPD, type II DM, chronic migraines, LV thrombus, CAD status post 8 stents who previously had cardiac catheterization done in August [address] Brooks. He presented to the ED they had a syncopal episode where he states of blacked out and his neighbor saw him and called the ambulance. The patient reports that he has had similar episodes in the past including 1 for which she went to the [facility] [place]. In the ED, the patient was hemodynamically stable and labs are unremarkable. CTA head and neck was done which showed a 4 mm anterior communicating artery aneurysm. Neurology was consulted and recommended for the patient to be admitted with a follow-up MRI and EEG Pending neurology evaluation Exam Vital Signs Temp Pulse Resp BP Pulse Ox O2 Del Method O2 Flow Rate 97.6 F 75 18 129/75 96 Room Air 2 10/03/24 12:00 10/03/24 12:10/03/24 12:10/03/24 12:10/03/24 12:10/03/24 12:10/02/24 16:24 Narrative Exam GENERAL: AAOX3 NEURO: MANAGER GOLF grossly intact, moves extremities x4 HEENT: Moist mucosa. Eyes open, symmetrical, & clear CARDIO: No chest pain on palpation. Heart RRR, no obvious murmurs PULM: No noted coughing/dyspnea. Lungs CTA B/L GI: Abdomen soft, nondistended, no pain on palpation. BSx4 URO/LOFTSMAN/WOMAN:: No further abnormalities noted. SKIN/MSK/EXT: No wounds/rashes/edema/amputations, no pain on palpation. Pedal pulses present B/L Objective Labs 10/04/24 04:48 10/04/24 04:48 Labs: Laboratory Results - last 24 hr 10/02/24 10/02/24 10/03/24 15:14 22:07 05:05 WBC 15.0 H D RBC 5.13 Hgb 16.0 Hct 45.3 MCV 88 MCH 31.2 MCHC 35.3 RDW Std Deviation 46.8 H Plt Count 301 Neut % (Auto) 78 Lymph % (Auto) 13 Donley % (Auto) 8 Eos % (Auto) 0 Baso % (Auto) 0 Neut # (Auto) 11.7 H Lymph # (Auto) 2.0 Donley # (Auto) 1.2 H Eos # (Auto) 0.0 Baso # (Auto) 0.0 Immature Gran # (Auto) 0.10 H Absolute Nucleated RBC 0.00 Immature Gran % 1 H Nucleated RBC % 0 Sodium 138 Potassium 4.3 Chloride 106 Carbon Dioxide 24.7 Anion Gap 7 BUN 15 Creatinine 0.8 Estim Creat Clear Calc 87.2 eGFR > 60 BUN/Creatinine Ratio 19 [address] Glu mg/dL 117 Hemoglobin A1c 5.7 Calculated Osmolality 281 Calcium 9.6 Corrected Calcium 9.6 Phosphorus 3.7 Magnesium 1.9 Total Bilirubin 0.7 AST 14 ALT 18 Alkaline Phosphatase 65 Troponin I < 0.020 < 0.020 Total Protein 7.1 Albumin 4.7 Globulin 2.4 Albumin/Globulin Ratio 2.0 Triglycerides 78 Cholesterol 290 H LDL Cholesterol, Calc 216 H HDL Cholesterol 58 Cholesterol/HDL Ratio 5.0 TSH 0.62 Free T4 1.22 Urine Opiates Screen Urine Fentanyl Screen Ur Barbiturates Screen U Amphetamin/Meth Scrn U Benzodiazepines Scrn U Cocaine Metab Screen U Marijuana (THC) Screen 10/03/24 14:14 WBC RBC Hgb Hct MCV MCH MCHC RDW Std Deviation Plt Count Neut % (Auto) Lymph % (Auto) Donley % (Auto) Eos % (Auto) Baso % (Auto) Neut # (Auto) Lymph # (Auto) Donley # (Auto) Eos # (Auto) Baso # (Auto) Immature Gran # (Auto) Absolute Nucleated RBC Immature Gran % Nucleated RBC % Sodium Potassium Chloride Carbon Dioxide Anion Gap BUN Creatinine Estim Creat Clear Calc eGFR BUN/Creatinine Ratio Glucose Estimated Ave Glu mg/dL Hemoglobin A1c Calculated Osmolality Calcium Corrected Calcium Phosphorus Magnesium Total Bilirubin AST ALT Alkaline Phosphatase Troponin I Total Protein Albumin Globulin Albumin/Globulin Ratio Triglycerides Cholesterol LDL Cholesterol, Calc HDL Cholesterol Cholesterol/HDL Ratio TSH Free T4 Urine Opiates Screen Negative Urine Fentanyl Screen Negative Ur Barbiturates Screen Negative U Amphetamin/Meth Scrn Negative U Benzodiazepines Scrn Negative U Cocaine Metab Screen Negative U Marijuana (THC) Screen Positive A Quality Measures Quality Measures none Assessment & Plan Assessment Current Active Medications: Generic Name Dose Route Start Last Admin Trade Name Freq PRN Reason Stop Dose Admin Acetaminophen 650 mg 10/02/24 19:48 10/02/24 21:47 Acetaminophen 325 Mg Tablet PO 03/10/25 19:47 650 mg Q6H PRN Administration PAIN SCALE 1-3 (mild Acetaminophen 650 mg 10/02/24 19:48 Acetaminophen 325 Mg Tablet PO 11/01/24 19:47 Q6H PRN Fever >100 Albuterol/Ipratropium 3 ml 10/02/24 20:51 Albuterol/Ipratropium (Duoneb) Rt Lisa 3 Ml Nebu INH 11/02/24 00:59 Q6HRRT PRN shortness of breath or wheeze Aspirin 81 mg 10/03/24 09:00 10/03/24 08:58 Aspirin Ec 81 Mg Tabec PO 11/02/24 08:59 81 mg QDAY BRENDA Administration Atorvastatin Calcium 80 mg 10/02/24 21:00 10/02/24 21:16 Atorvastatin Calcium 20 Mg Tablet PO 11/01/24 20:59 80 mg HS BRENDA Administration Dextrose 25 ml 10/02/24 19:53 Dextrose 50%-Water Inj 50 Ml Syringe IV 11/01/24 19:52 Q15MIN PRN BG 50-70 responsive npo pt Dextrose 50 ml 10/02/24 19:53 Dextrose 50%-Water Inj 50 Ml Syringe IV 11/01/24 19:52 Q15MIN PRN BG <50 OR BG <70 & pt unresponsive Glucagon 1 mg 10/02/24 19:53 Glucagon Inj 1 Mg Vial IM Q15MIN PRN BG <70, and no IV access Insulin Human Lispro 0 unit 10/02/24 21:00 10/03/24 11:14 Insulin Lispro (Admelog) 1 Unit/0.01 Ml Unit SC 11/01/24 20:59 Not Given ACHS COUNTS INCLUDE 234 BEDS AT THE [facility] Protocol Labetalol HCl 10 mg 10/02/24 19:59 Labetalol Inj 5 Mg/Ml Vial 20 Ml IVP 11/01/24 19:58 Q6H PRN BP >220/110 Nicotine 14 mg 10/02/24 20:15 10/03/24 08:58 Nicotine Patch 14 Mg/24 Hr Patch.Td24 TOP 11/01/24 20:14 14 mg QDAY BRENDA Administration Nitroglycerin 0.4 mg 10/02/24 20:01 Nitroglycerin 0.4 Mg Subl Btl #25 SL Q5MIN PRN CHEST PAIN Ondansetron HCl 4 mg 10/02/24 19:48 Ondansetron Inj 2 Mg/Ml Inj 2 Ml IV 11/01/24 19:47 Q6H PRN NAUSEA OR VOMITING Protocol Pantoprazole Sodium 40 mg 10/03/24 09:00 10/03/24 08:59 Pantoprazole Inj 40 Mg Vial IVP 11/02/24 08:59 40 mg QDAY BRENDA Administration Plan Summary: The patient is a 64-year-old male with a past medical history of hypertension, COPD, type II DM, chronic migraines, LV thrombus, CAD status post 8 stents who previously had cardiac catheterization done in August [address] Brooks, presenting to the ED after syncopal episode. #Presyncope versus syncope The patient presented after having a syncopal episode where he described as blacking out after standing up. Apparently a neighbor saw him and came to help who subsequently called for an ambulance. He does mention that he has had a similar episode in the past and he presented to [facility] [place] shortly after. In the ED, the patient was hemodynamically stable, CTA head/neck was done which showed a 4 mm anterior communicating artery aneurysm, a carotid artery ultrasound was done about a month ago which showed 0 to 10% stenosis bilaterally. Neurological examination is normal. EKG showed sinus rhythm, no arrhythmias Orthostatic vitals were done and was negative. An echocardiogram from 2022 shows ejection fraction of 40 to 45%. Neurology has been consulted Plan: -Continue to monitor vitals -Continue home aspirin 81 mg -Pending MRI and EEG -Neurology consulted, pressure recommendations #Chest pain #History of cardiac arrest #History of CAD status post 8 stents #History of hypertension #History of hyperlipidemia The patient presented with chest pain with typical features. Given his extensive history of CAD, troponins were ordered which returned negative. The patient mentions that he had a cardiac arrest in 2018, he also had cardiac cath done in 2022. He mentions that he has been prescribed nitroglycerin in the past for chest pain but he does not take them as he believes it causes him headache. He is on aspirin 81 mg daily Plan: -Cardiology consulted, appreciate recommendations -Continue aspirin 81 mg daily -Continue atorvastatin 80 mg at bedtime #History of type II DM Patient reports a history of type II DM. Admitting glucose was 136. A1c-5.7 Plan: -ISS -Patient is unlikely to have diabetes we will continue to monitor blood sugar #History of erythrocytosis #Likely reactive status On admission, hemoglobin was 16.3, patient has had hemoglobin as high as 18.1 in the past was never had workup for polycythemia. Other cell lines have been normal-WBC and platelets except for some leukocytosis today, possibly due to steroids Patient does have an extensive history of smoking and has COPD, this is Likely reactive. Plan: -For outpatient workup Health maintenance: Dispo: MedSurg Diet: Cardiac GI: Pantoprazole DVT: SC Heparin Chavira: None Lines: Peripheral Code: DNR Case was discussed with Dr Fregoso PGY-2 and attending physician, Dr Ashly Pena MD PGY-1 Disclaimer: This note was dictated by speech recognition. Minor errors in shirt hemmer may be present due to voice recognition software. Attending Provider Attestation/Addendum I reviewed labs, imaging, EKG, home medications and prior available records. Face to face evaluation was performed by me. I have personally examined the patient and discussed assessment and plan with the IM team. I reviewed the resident note and agree with the plan with exceptions as below. Syncope, neurogenic in the setting of seizure versus cardiogenic in the setting of CAD/arrhythmia Complicated migraines Chest pain at rest Left face numbness CAD status post multiple stenting Leukocytosis, reactive Type 2 diabetes mellitus Follow-up EEG Follow-up brain MRI Follow-up echocardiogram Orthostatic vital signs are negative Leukocytosis is likely due to corticosteroid use
[2024-10-03 16:00] VITALS: BP 140/83; PULSE 83; RESP 18; TEMP 36.4; O2SAT 95
[2024-10-03 20:00] VITALS: BP 129/76; PULSE 93; RESP 18; TEMP 36.3; O2SAT 95
[2024-10-03] MEDS: ATORVASTATIN CALCIUM 20 MG TABLET 80 MG PO (20:11)
[2024-10-03] MEDS: MG HYD/AL HYD/SIME (Maalox Reg) SUSP 30 ML UDC PO (20:11)
[2024-10-03] MEDS: HEPARIN SOD INJ 5000 UNIT/ML VIAL SC (20:15)
[2024-10-04] VITALS: PULSE 97
--- NOTE | 2024-10-04 | XR_ITS ---
Examination: MRI of brain without intravenous contrast. MRI brain with intravenous contrast. Date and time of exam:October 04, 2024 0930 hours INDICATIONS: Dizziness and lightheadedness episodes this week Technique: Multiple axial and sagittal images of the brain to been obtained. Siemens high-resolution 1.52 Stephenie short bore scanner utilized. Sagittal sections, T1 weighted images, TR 500, TE 14, are performed. Axial sections proton-density and T2-weighted images have been obtained. Inversion recovery axial images, TR 9260, TE 111, TR 2500. Diffusion weighted images, axial sections, TR 4800, TE 128, B value 1000. Axial sections, ADC map, TR 4800, TE 128. Axial and coronal images were also obtained post 15 cc gadolinium administered intravenously. Findings:: Enlargement of the sella turcica is not present. The optic chiasm and infundibular stalk are not remarkable. There is no localized enlargement of the medulla or kaiser. Fourth ventricle and cerebellar tonsils appear normal in position. No subacute area of hemorrhage density is seen. Fourth ventricle is midline. Mass in the cerebellopontine angle region is not evident. 7th and 8th nerve complexes exhibit symmetry Globes are symmetrical Orbital musculature including medial lateral rectus muscles do not exhibit abnormality Increased white matter signal is mild Effacement of the cortical sulcal markings is not identified. Mass effect upon the ventricular system is not identified. Diffusion-weighted images demonstrate no focus of restricted diffusion Contrast images demonstrate no abnormal enhancement Impression: Negative for acute hemorrhage mass effect or midline shift No acute infarct No abnormal enhancing cerebellar or cerebral lesions
[2024-10-04 04:00] VITALS: BP 124/76; PULSE 81; PULSE 86; RESP 18; TEMP 36.2; O2SAT 94
[2024-10-04 05:38] LABS: Basophils # (Auto) 0.1 Thou/mm3 (0.0-0.2); Basophils % (Auto) 1 % (0-2.5); Eosinophils # (Auto) 0.3 Thou/mm3 (0.0-0.5); Eosinophils % (Auto) 2 % (0-10); Hematocrit 48.6 % (41.0-53.0); Hemoglobin 16.7 g/dL (13.5-16.0); Immature Granulocytes % (Auto) 0 % (0-0); Immature Granulocytes Auto 0.06 Thou/mm3 (0.00-0.00); Lymphocytes # (Auto) 6.2 Thou/mm3 (1.0-4.8); Lymphocytes % (Auto) 42 % (10-50); Mean Corpuscular HGB Conc 34.4 g/dl (31.0-37.0); Mean Corpuscular Hemoglobin 30.9 pg (25.0-35.0); Mean Corpuscular Volume 90 fL (80-100); Monocytes # (Auto) 1.4 Thou/mm3 (0.0-0.8); Monocytes % (Auto) 10 % (0-12); Neutrophils # (Auto) 6.8 Thou/mm3 (1.8-7.7); Neutrophils % (Auto) 46 % (37-80); Nucleated Red Blood Cell % 0 /100 WBC (0); Platelet Count 292 Thou/mm3 (140-440); RDW Standard Deviation 48.6 fL (35.1-43.9); Red Blood Count 5.41 Miln/mm3 (4.50-5.90); White Blood Count 14.9 Thou/mm3 (3.8-10.6)
[2024-10-04 07:15] LABS: Alanine Aminotransferase 26 U/L (10-49); Albumin, Serum 4.9 gm/dL (3.4-4.8); Alkaline Phosphatase 67 U/L (46-116); Anion Gap 9 (7-16); Aspartate Amino Transferase 23 U/L (0-34); BUN/Creatinine Ratio 21 Ratio (12-20); Bilirubin,Total 0.8 mg/dL (0.3-1.2); Blood Urea Nitrogen 19 mg/dL (9-23); Calcium 9.4 mg/dL (8.3-10.6); Calcium (Corrected) 9.4 mg/dL (8.5-10.1); Carbon Dioxide 26.4 mMol/L (20.0-31.0); Chloride 105 mMol/L (98-107); Creatinine (Component) 0.9 mg/dL (0.6-1.3); Estimated Creatinine Clearance 77.5 mL/min (>60); Globulin 2.5 gm/dL (2.3-3.5); Glucose 105 mg/dL (74-106); Magnesium 2.1 mg/dL (1.6-2.6); Osmolality,Calculated 281 (275-295); Phosphorous 3.6 mg/dL (2.4-5.1); Potassium 4.1 mMol/L (3.4-5.1); Sodium 140 mMol/L (136-145); Total Protein 7.4 gm/dL (5.7-8.2); eGFR > 60 See Note
[2024-10-04 08:00] VITALS: BP 135/92; PULSE 97; RESP 18; TEMP 36.4; O2SAT 98
[2024-10-04] MEDS: NICOTINE PATCH 14 MG/24 HR PATCH.TD24 TOP (08:12)
[2024-10-04] MEDS: ASPIRIN EC 81 MG TABEC PO (08:12)
[2024-10-04] MEDS: PANTOPRAZOLE INJ 40 MG VIAL IVP (08:12)
[2024-10-04] MEDS: HEPARIN SOD INJ 5000 UNIT/ML VIAL SC (08:13)
[2024-10-04 12:00] VITALS: BP 141/98; PULSE 79; PULSE 83; RESP 18; TEMP 36.7; O2SAT 96
[2024-10-04 12:29] VITALS: BP 135/92; PULSE 97
[2024-10-04] MEDS: DOCUSATE SOD 100 MG CAPSULE PO (12:29)
[2024-10-04] MEDS: METOPROLOL SUCCINATE XL 25 MG TABCR PO (12:29)
--- NOTE | 2024-10-04 14:44 | PD.RESDS ---
Planned Discharge Date 10/04/24 DS: Providers Provider Date of admission: 10/02/24 19:48 Primary care physician: Jacinto Valadez PA-C Admitting Provider: Ck Lagos MD Attending Provider on Admission: Osacr Limon MD Consults: 10/02/24 19:56 Consult to Neurology / Tele-Neurology Stat Comment: Presyncope Consulting Provider: Wander Mtz 10/02/24 19:57 Referral Physical Therapy Stat Comment: Physician Instructions: 10/02/24 19:58 Referral Speech Therapy Routine Comment: 10/02/24 20:59 Consult to Cardiology Routine Comment: Consulting Provider: Waldo Brooks 10/02/24 23:03 Health Equity Referral - Knowledge Deficit Routine Comment: Positive screening for knowledge deficit needs. 10/03/24 20:16 Referral - DRIVER [employer]CH[employer] Mortgage Loan Coordinator Routine Comment: gary Menjivar Attending Provider on DC: Homar Sifuentes MD Discharging Provider: Homar Sifuentes MD DS: Diagnosis Problem List Completed Was Problem List Reviewed/Reconciled?: Yes Hospital Course Hospital Course Hospital course: Patient is a 64 years old male with PMHx of extensive CAD, s/p stent x8 in 2018, HLD, HTN, COPD, migraine headaches, T2DM, GERD presenting with a chief complaint of dizziness and lightheadedness. He presented to the ED after he had a syncopal episode where he states of blacked out and his neighbor saw him and called the ambulance. The patient reports that he has had similar episodes in the past including 1 for which she went to the [facility]. In the ED, the patient was hemodynamically stable and labs are unremarkable. CTA head and neck was done which showed a 4 mm anterior communicating artery aneurysm. Neurology was consulted and recommended for the patient to be admitted for further work up. Brain MRI was unremarkble. EEG was normal. cardiology was consulted, echo was done showed normal LV size and low normal LV function with EF around 50%. He was cleared for discharge by cardiology and neurology. He is stable for discharge today. Continue home medications as prescribed, atorvastatin dose was increased to 80 mg daily. Follow up with PCP, neurology and cardiology within 2 weeks. #Presyncope vs syncope. #Chest pain. #History of cardiac arrest. #History of CAD status post 8 stents. #History of hypertension. #History of hyperlipidemia. #History of type II DM. #History of erythrocytosis. #Likely reactive status. Plan of care discussed with attending Dr. Limon. Homar Sifuentes MD, PGY 2. Disclaimer: This note was dictated by speech recognition. Minor errors in blow machine tender starch spraying may be present due to voice recognition software. Time Spent with Patient Time attestation: Total time spent providing and/or coordinating discharge services: 40 min Exam Vital Signs Temp Pulse Resp BP Pulse Ox O2 Del Method O2 Flow Rate 98.0 F 97 18 135/92 H 96 Room Air 2 10/04/24 12:00 10/04/24 12:29 10/04/24 12:00 10/04/24 12:29 10/04/24 12:10/04/24 12:10/02/24 16:24 Narrative Exam Gen: Well-developed and well-nourished. HEENT: NCAT, PERRLA, EOMI, MMM, anicteric conjunctivae. CVS: normal S1 and S2. RRR. No M/R/G. Resp: CTA B/L. No rhonchi, rales, crackles or wheezing. Abd: soft, non-tender, non-distended. BS+ in all 4 quadrants. MSK: Good ROM in BUE & BLE. No edema or rash. Neuro: CN II-XII grossly intact. Strength 5/5 in BUE & BLE. Alert and oriented x3. Psych: appropriate mood and affect. Discharge Plan Plan Patient Disposition: HOME (Self Care) Care Plan Goals: Continue home medications as prescribed, your atorvastatin dose was increased to 80 mg daily. Follow up with PCP, neurology and cardiology within 2 weeks. If you don't have PCP or want to change, you can follow up with Dr. Enriquez in [facility]: [facility] [address] [place] [address] Prescriptions/Referrals Prescriptions/Med Rec: New atorvastatin 20 mg Tablet 80 mg PO HS Qty: 30 0RF Continued nitroglycerin 0.4 mg tablet, sublingual 0.4 mg BUCCAL [id number] PRN (Reason: CHESTPAIN) Patient Comments: PLACE 1 TABLET UNDER TONGUE EVERY 5 MINS, UP TO 3 DOSES PER 15MIN NEEDED FOR CHEST PAIN GO TO ER docusate sodium 100 mg capsule 100 mg PO BID Patient Comments: TAKE 1 CAPSULE BY MOUTH TWICE A DAY albuterol sulfate 90 mcg/actuation HFA aerosol inhaler 2 puff INHALATION Q4H Patient Comments: INHALE 2 PUFFS BY MOUTH EVERY 4 HOURS NEEDED FOR WHEEZING Eliquis 2.5 mg Tablet 5 mg PO BID 30 Days Qty: 120 2RF aspirin 81 mg Tablet,Delayed Release (Dr/Ec) 81 mg PO QDAY 30 Days Qty: 30 2RF clopidogrel 75 mg Tablet 75 mg PO QDAY 30 Days Qty: 30 2RF losartan 25 mg Tablet 50 mg PO QDAY 30 Days Qty: 60 2RF metoprolol succinate 25 mg Tablet Extended Release 24 Hr 50 mg PO QDAY 30 Days Qty: 60 2RF Proair Digihaler 90 mcg/actuation aero powdr breath act w/sensor 90 mcg inhalation Q6H PRN (Reason: shortness of breath or wheezing) Qty: 1 0RF fluticasone propionate [Flonase Allergy Relief] 50 mcg/actuation spray,suspension 2 spray intranasal QDAY Qty: 16 0RF Rx Instructions: administer into each nostril Antivert 50 mg tablet 50 mg PO BID PRN (Reason: dizziness or vertigo) Qty: 14 0RF nicotine 7 mg/24 hr patch 24 hour 7 mg topical QDAY Qty: 14 0RF Discontinued atorvastatin 20 mg Tablet 80 mg PO HS 30 Days Qty: 120 2RF meclizine 25 mg tablet 25 mg PO QDAY PRN (Reason: dizziness) Qty: 10 0RF meclizine 25 mg tablet 25 mg PO BID PRN (Reason: dizziness) Qty: 20 0RF meclizine 50 mg tablet 50 mg PO BID PRN (Reason: dizziness) Qty: 20 0RF ibuprofen 800 mg tablet 800 mg PO TID PRN (Reason: pain) Qty: 30 0RF Referrals: Jacinto Valadez PA-C [Primary Care Provider] - Patient/Caregiver Discharge Instructions Education Materials: Dizziness Fainting Poss Causes Print Language: Sami Stand Alone Forms: [employer] Award Info., Patient Portal Info Letter Discharge Order Discharge Orders: Discharge (Routine); Ordered 10/04/24 Ordered By: Homar Sifuentes Quality Discharge Quality Measures VTE prophylaxis Attestestation Attestation I reviewed labs, imaging, EKG, home medications and prior available records. Face to face evaluation was performed by me. I have personally examined the patient and discussed assessment and plan with the IM team. I reviewed the resident note and agree with the plan with exceptions as below. Syncope, neurogenic in the setting of seizure versus cardiogenic in the setting of CAD/arrhythmia Complicated migraines Chest pain at rest Left face numbness CAD status post multiple stenting Leukocytosis, reactive Type 2 diabetes mellitus Follow-up EEG: Normal Follow-up brain MRI: No acute changes Follow-up echocardiogram: Showed preserved EF with no pertinent abnormalities Continue aspirin and atorvastatin given the CAD. Started metoprolol for the combination of CAD and hypertension. Monitor BP Orthostatic vital signs are negative Leukocytosis is likely due to corticosteroid use Okay to discharge from cardiology and neurology standpoint. Follow-up with cardiology as outpatient Time spent is 40 minutes. More than 50% of the time was spent on patient education and coordination of care.
--- NOTE | 2024-10-04 16:26 | PC.PT ---
Patient was approached at 1100. Patient was standing by the window. Patient was assess ambulating in the room without AD and patient is I. Patient is steady. Patient states he was not dizzy and and had been ambulating. Will cancel PT evaluation. Patient is at his PLOF.
== END 2024-10-04 15:06 | disposition home or self-care (01) | DRG 204 ==
LOC: SERX 17:51 → SERHOLD 10-04 06:51 → S3SX 10-04 06:51
PROVIDERS: Nurse Practitioner Primary Care; Admitting Provider Student in an Organized Health Care Education/Training Program; Emergency Provider Emergency Medicine; PCP Physician Assistant; Visit Provider Student in an Organized Health Care Education/Training Program
DX: R55 Syncope and collapse (principal); I25.10 Atherosclerotic heart disease of native coronary artery without angina pectoris; I11.0 Hypertensive heart disease with heart failure; I50.22 Chronic systolic (congestive) heart failure; G43.109 Migraine with aura, not intractable, without status migrainosus; E78.5 Hyperlipidemia, unspecified; K21.9 Gastro-esophageal reflux disease without esophagitis; J44.9 Chronic obstructive pulmonary disease, unspecified; E11.9 Type 2 diabetes mellitus without complications; R20.0 Anesthesia of skin; D72.829 Elevated white blood cell count, unspecified; I67.1 Cerebral aneurysm, nonruptured; D75.1 Secondary polycythemia; I51.3 Intracardiac thrombosis, not elsewhere classified; F12.90 Cannabis use, unspecified, uncomplicated; I25.2 Old myocardial infarction; Z95.5 Presence of coronary angioplasty implant and graft; F17.210 Nicotine dependence, cigarettes, uncomplicated; Z66 Do not resuscitate; Z86.74 Personal history of sudden cardiac arrest; Z11.52 Encounter for screening for COVID-19; Z79.82 Long term (current) use of aspirin; Z91.018 Allergy to other foods; Z79.899 Other long term (current) drug therapy; Z90.49 Acquired absence of other specified parts of digestive tract; Z63.4 Disappearance and death of family member
CPT/HCPCS: 36415; 70450; 70496; 70498; 70553; 71046; 72125; 80053; 80061; 80307; 83036; 83690; 83735; 83880; 84100; 84439; 84443; 84484; 85025; 85610; 85730; 87400; 92610; 93225; 93306; 95813; A4649; A9579; J1200; J1643; J1815; J2470; J2919; J3490; Q9967; A9270

== ENCOUNTER 2024-10-26 07:35 | Emergency (ER) | payer MEDICAID, SELFPAY ==
[2024-10-26 07:37] VITALS: BP 146/80; PULSE 92; RESP 18; TEMP 37.1; O2SAT 96
--- NOTE | 2024-10-26 07:39 | XR_ITS ---
Examination: CT cervical spine without contrast 2-D sagittal reconstructions 2-D coronal reconstructions 3-D reconstructions. Exam date and time:March 28, 2025 0853 hours INDICATIONS: Patient fell today with injury to the neck, neck pain CTDI:vol (mGy) 8.44 DLP: (mGycm) 203 Technique: Multiple 2 mm axial sections of the cervical spine have been obtained. The coronal and sagittal reconstructions have been obtained. 3-D reconstructions have been obtained. Low dose protocols were performed. One or more of the following dose reduction techniques were used; automated exposure control, adjustment of the mA and/or KV according to patient size, use of iterative reconstruction technique. Findings: Axial sections demonstrate intact base of the skull. C1 exhibit satisfactory relationship to the odontoid. No acute cervical vertebral body fracture seen. Alignment posterior spinous processes satisfactory. Impression: No acute cervical fracture.
--- NOTE | 2024-10-26 07:39 | XR_ITS ---
Examination: CT brain head without contrast. 2-D sagittal coronal reconstructions Date and time of exam:October 26, 2024 0853 hours INDICATIONS: Patient fell today with injury to the head, head pain CTDI: vol (mGy):47.2 DLP: (mGycm):963 Technique: Multiple CT axial sections of the brain have been obtained, 5 mm slice thickness. Contrast has not been administered. 2-D sagittal, coronal reconstructions have been obtained Low dose protocols were performed. One or more of the following dose reduction techniques were used; automated exposure control, adjustment of the mA and/or KV according to patient size, use of iterative reconstruction technique. Findings: No significant ventricular enlargement. Intra-axial or extra-axial hemorrhage density is not seen. No mass effect or midline shift Basal cisterns are not remarkable. Fourth ventricle is midline. Cranial vault intact. Impression: Negative for acute hemorrhage, mass effect or midline shift
--- NOTE | 2024-10-26 07:40 | XR_ITS ---
Examination: AP chest single view Technique one AP portable upright chest single view Exam date and time: October 26, 2024 0801 hours INDICATIONS: Shortness breath today. FINDINGS: Normal heart size Lungs are clear. Moderate osteopenia IMPRESSION: No active disease
--- NOTE | 2024-10-26 07:41 | PD.EDSYNC ---
ED Syncope RME/HPI General Chief Complaint: Syncope / Near Syncope Stated Complaint: syncopal Time Seen by Provider: 10/26/24 07:42 Arrival date/time: 10/26/24 07:35 RME / HPI RME / HPI narrative: DR. DEL ANGEL MAIN ED EVALUATION: This section includes all my notes and documentations, including HPI, PE, and ED course.? Max Del Angel MD HPI: 64 year old male with past medical history significant for OR, stents, last stent placed at [place] 2 weeks ago, and diabetes presents to the Emergency Department [facility] with complaint of syncopal episode prior to arrival. Per EMS, patient was cooking, felt light-headed and dizzy and then went to bed to rest and passed out in bed for a few seconds. No trauma. No similar syncopal episodes in the past. Associated symptoms include nausea and a mild headache. Patient has been sick with a cold, congestion, subjective fevers, mild headache, and decreased appetite for the last 3 days. Patient denies any chest pain. No other complaints reported. ROS: All negative except as documented in HPI. Physical Exam: General:? Alert and oriented.? No acute distress when remaining still.? Eyes:? Conjunctivae and lids clear. PERRL. EOMI. ENT:? No nasal congestion.? Pharynx normal. TM normal bilaterally. Neck:? Supple. No carotid bruit. No JVD. Heart:? RRR. Lungs:? No respiratory distress.? Good air movement.? No rhonchi, wheezing, rales.? Abdomen:? Soft and nontender.? Legs:? No clubbing, cyanosis, edema. Skin:? Warm and dry.? Neuro:? Alert and oriented X 3.? Cranial nerves II to XII grossly normal. No peripheral motor deficits. I reviewed all diagnostic test results. My interpretation of the EKG is Sinus rhythm (91 bpm) with nonspecific ST-T changes. My interpretation of the chest x-ray is no active .disease My review of the head and cervical spine CT reports is no acute findings. Blood tests unremarkable. At this point, diagnoses include Dehydration causing syncope. Treatment here included IV fluid, morphine, and zofran. When he needed more help with his headache, he was given two Tylenol #3. Significant improvement noted. Recommended supportive care. Based on my best medical judgment, made decision no further evaluation or treatment indicated at this time.? Patient understands and agrees to the discharge instructions customized and printed, see below. Discharge Instructions from Dr. Del Angel: 1. After evaluation, you have stomach flu which caused severe dehydration and helped you passing out. There is no life-threatening condition such as stroke or brain tumor or heart attack. 2. This is caused by virus germs.? And we do not have good medications to kill the virus germs.? But your immune system will fight it off. 3. Your job is to stay hydrated.? Zofran for nausea/vomiting.? Increase oral fluid and maintain clear urine.? If dark or yellow, increase oral fluid. 4. Do not take any medications to stop diarrhea if you develop diarrhea.? But try to replenish the fluid and electrolytes you are losing. 5. Some good choices are water (but not only water because it will cause electrolyte abnormalities), sports drinks like Gatorade (with less sugar content), coconut water, chicken stock, and other fluid with electrolytes (like Pedialyte). 6. See your private doctor on 10/28/2024 for recheck and further care. Ask to review all test results and official radiology reports, to make sure you receive all necessary follow-ups and monitoring. 7. Seek immediate medical care with worsening or with any concerns. Max Del Angel MD Related Data Home Medications ?Medication ?Instructions ?Recorded ?Confirmed albuterol sulfate 90 mcg/actuation 2 puff inhalation Q4H 10/05/21 11/18/21 aerosol inhaler docusate sodium 100 mg capsule 100 mg PO BID 10/05/21 11/18/21 nitroglycerin 0.4 mg sublingual 0.4 mg buccal [id number] PRN CHESTPAIN 10/05/21 09/06/22 tablet Previous Rx's ?Medication ?Instructions ?Recorded apixaban 2.5 mg tablet (Eliquis) 5 mg (2 x 2.5 mg) PO BID 30 days 09/07/22 #120 tabs aspirin 81 mg tablet,delayed 81 mg PO QDAY 30 days #30 tabs 09/07/22 release clopidogrel 75 mg tablet 75 mg PO QDAY 30 days #30 tabs 09/07/22 losartan 25 mg tablet 50 mg (2 x 25 mg) PO QDAY 30 days 09/07/22 #60 tabs metoprolol succinate 25 mg 50 mg (2 x 25 mg) PO QDAY 30 days 09/07/22 tablet,extended release 24 hr #60 tabs fluticasone propionate 50 2 spray intranasal QDAY #16 grams 11/24/22 mcg/actuation nasal spray,suspension (Flonase Allergy Relief) meclizine 50 mg tablet (Antivert) 50 mg PO BID PRN dizziness or 11/24/22 vertigo #14 tabs nicotine 7 mg/24 hr daily 7 mg topical QDAY #14 ea 11/12/23 transdermal patch albuterol sulfate 90 mcg/actuation 90 mcg inhalation Q6H PRN 06/03/24 breath activated powder shortness of breath or wheezing #1 inhaler,sensor (Proair Digihaler) ea atorvastatin 20 mg tablet 80 mg (4 x 20 mg) PO HS #30 tabs 10/04/24 ondansetron 4 mg disintegrating 4 mg PO TID PRN nausea and 10/26/24 tablet vomiting 30 days #10 tabs Allergies Allergy/AdvReac Type Severity Reaction Status Date / Time almond oil Allergy Severe Difficulty Verified 10/02/24 08:37 Breathing Iodinated Contrast Media Allergy Severe Hives Verified 10/02/24 08:37 pecan nut Allergy Severe Difficulty Verified 10/02/24 08:37 Breathing tree nut Allergy Severe Difficulty Verified 10/02/24 08:37 Breathing walnut Allergy Severe Difficulty Verified 10/02/24 08:37 Breathing Course Quality Measures none Orders Category Date Time Status Bedside COVID-19 Antigen Test NOW Care 10/26/24 07:38 Completed Bedside Influenza A&B Antigen Test NOW Care 10/26/24 07:38 Completed EKG (ED ONLY) *Do not use* NOW Care 10/26/24 07:40 Completed Saline [Insert IV] NOW Care 10/26/24 07:[address] cervical spine wo con Stat Exams 10/26/24 07:[address] head/brain wo con Stat Exams 10/26/24 07:39 Completed EKG (ED Only) Stat Exams 10/26/24 07:40 Ordered XR chest 1V portable Stat Exams 10/26/24 07:40 Completed BNP [B-Type Natriuretic Peptide] Stat Lab 10/26/24 07:53 Completed Beta Hydroxybutyrate Stat Lab 10/26/24 07:53 Completed CBC Stat Lab 10/26/24 07:53 Completed CMP [Comprehensive Metabolic Panel] Stat Lab 10/26/24 07:53 Completed Magnesium Stat Lab 10/26/24 07:53 Completed TSH [Thyroid Stimulating Hormone] Stat Lab 10/26/24 07:53 Completed Troponin I Stat Lab 10/26/24 07:53 Completed Troponin I Stat Lab 10/26/24 10:17 Completed ACETAMINOPHEN w/COD 300-30 [Tylenol w/Cod #3] Med 10/26/24 10:05 Discontinued 2 tab PO X1 ONE Morphine Inj Med 10/26/24 07:38 Discontinued 2 mg IVP X1 ONE Ondansetron Inj [Zofran Inj] Med 10/26/24 07:38 Discontinued 4 mg IV X1 ONE Sodium Chloride 0.9% 1000 ml [Ns] 1,000 ml Med 10/26/24 07:38 Discontinued IV 999 mls/hr Sodium Chloride 0.9% 1000 ml [Ns] 1,000 ml Med 10/26/24 10:05 Discontinued IV 999 mls/hr Vital Signs Vital signs: Vital Signs Temperature 98.7 F 10/26/24 07:37 Pulse Rate 92 10/26/24 07:37 Respiratory Rate 18 10/26/24 07:37 Blood Pressure 146/80 H 10/26/24 07:37 Pulse Oximetry (%) 96 10/26/24 07:37 Oxygen Delivery Method Room Air 10/26/24 07:37 Syncope MDM Narrative MDM Narrative:: Elizabet Schuler am scribing for and in the presence of Dr. Del Angel. Patient data External records reviewed:: [facility] previous records (Reviewed last admission discharge dated 10/04/24, patient admitted for the following: Syncope) and EMS form Clinical information provided by:: patient and EMS Social determinants that could affect healthcare access:: none Patient has the following chronic illnesses:: OR, stents, last stent placed at [place] 2 weeks ago, and diabetes How is presenting disease/condition affected by chronic disease/condition?: exacerbated by Evaluation data The following diagnostics were reviewed and interpreted by me:: lab results, radiology exam(s) and EKG tracing(s) (My interpretation of the EKG is: Sinus rhythm (91 bpm) with nonspecific ST-T changes. Max Del Angel MD) Lab and/or radiology exams considered but not ordered:: none Interpretation Summary: Dehydration Medications / Prescriptions Medications or Prescriptions considered but not ordered:: none Medication administrations:: Medication Administration History Discontinued Medications Acetaminophen/Codeine Phosphate (Acetaminophen W/Cod 300-30 Tablet) 2 tab PO X1 ONE Stop: 10/26/24 10:06 Last Admin: 10/26/24 11:22 Dose: 2 tab Documented By: MCKENZIE Sodium Chloride (Ns) 1,000 mls @ 999 mls/hr IV .Q1H1M ONE Stop: 10/26/24 08:38 Last Infusion: 10/26/24 09:11 Dose: Infused Documented By: Admin: 10/26/24 08:05 Dose: 999 mls/hr Documented By: HEAVEN Sodium Chloride (Ns) 1,000 mls @ 999 mls/hr IV .Q1H1M ONE Stop: 10/26/24 11:05 Last Admin: 10/26/24 11:22 Dose: 999 mls/hr Documented By: MCKENZIE Morphine Sulfate (Morphine Sulf Inj 10 Mg/Ml Vial) 2 mg IVP X1 ONE Stop: 10/26/24 07:39 Last Admin: 10/26/24 08:05 Dose: 2 mg Documented By: HEAVEN Ondansetron HCl (Ondansetron Inj 2 Mg/Ml Inj 2 Ml) 4 mg IV X1 ONE; Protocol Stop: 10/26/24 07:39 Last Admin: 10/26/24 08:06 Dose: 4 mg Documented By: HEAVEN Fluids, tylenol with codeine, morphine, zofran Consultations Consultation(s) initiated? (list below): No Diagnosis Syncope Differential Diagnosis: syncope due to orthostatic hypotension, vasovagal syncope, complete atrioventricular block, subarachnoid hemorrhage, pulmonary embolism, dehydration and other (stroke, OR, Influenza, dehydration) Most likely diagnosis given after review of the tests above:: Dehydration Admission Indicated Admission indicated?: not indicated Explain why admission is indicated or not indicated:: There is no indication for admission. Admission Request Was there a request for admission?: No Disposition Plan Disposition Plan: Discharge Discharge Attestation Discharge Attestation: The patient and all family members were given an opportunity to ask questions and understood the discharge instructions. Discharge instructions specifically effects, indications for sooner follow up or return to the emergency department, and the expected course of current diagnosis. Patient condition: Stable Discharge Plan Plan Patient Disposition: HOME (Self Care) Prescriptions/Referrals Prescriptions/Med Rec: New ondansetron 4 mg tablet,disintegrating 4 mg PO TID PRN (Reason: nausea and vomiting) 30 Days Qty: 10 0RF No Action nitroglycerin 0.4 mg tablet, sublingual 0.4 mg BUCCAL [id number] PRN (Reason: CHESTPAIN) Patient Comments: PLACE 1 TABLET UNDER TONGUE EVERY 5 MINS, UP TO 3 DOSES PER 15MIN NEEDED FOR CHEST PAIN GO TO ER docusate sodium 100 mg capsule 100 mg PO BID Patient Comments: TAKE 1 CAPSULE BY MOUTH TWICE A DAY albuterol sulfate 90 mcg/actuation HFA aerosol inhaler 2 puff INHALATION Q4H Patient Comments: INHALE 2 PUFFS BY MOUTH EVERY 4 HOURS NEEDED FOR WHEEZING Eliquis 2.5 mg Tablet 5 mg PO BID 30 Days Qty: 120 2RF aspirin 81 mg Tablet,Delayed Release (Dr/Ec) 81 mg PO QDAY 30 Days Qty: 30 2RF clopidogrel 75 mg Tablet 75 mg PO QDAY 30 Days Qty: 30 2RF losartan 25 mg Tablet 50 mg PO QDAY 30 Days Qty: 60 2RF metoprolol succinate 25 mg Tablet Extended Release 24 Hr 50 mg PO QDAY 30 Days Qty: 60 2RF Proair Digihaler 90 mcg/actuation aero powdr breath act w/sensor 90 mcg inhalation Q6H PRN (Reason: shortness of breath or wheezing) Qty: 1 0RF atorvastatin 20 mg Tablet 80 mg PO HS Qty: 30 0RF fluticasone propionate [Flonase Allergy Relief] 50 mcg/actuation spray,suspension 2 spray intranasal QDAY Qty: 16 0RF Rx Instructions: administer into each nostril Antivert 50 mg tablet 50 mg PO BID PRN (Reason: dizziness or vertigo) Qty: 14 0RF nicotine 7 mg/24 hr patch 24 hour 7 mg topical QDAY Qty: 14 0RF Problem List Clinical Impression: Dehydration Patient/Caregiver Discharge Instructions Discharge Activity: activity as tolerated Education Materials: ED Dehydration (Adult) Additional Instructions: Discharge Instructions from Dr. Del Angel: 1. After evaluation, you have stomach flu which caused severe dehydration and helped you passing out. There is no life-threatening condition such as stroke or brain tumor or heart attack. 2. This is caused by virus germs.? And we do not have good medications to kill the virus germs.? But your immune system will fight it off. 3. Your job is to stay hydrated.? Zofran for nausea/vomiting.? Increase oral fluid and maintain clear urine.? If dark or yellow, increase oral fluid. 4. Do not take any medications to stop diarrhea if you develop diarrhea.? But try to replenish the fluid and electrolytes you are losing. 5. Some good choices are water (but not only water because it will cause electrolyte abnormalities), sports drinks like Gatorade (with less sugar content), coconut water, chicken stock, and other fluid with electrolytes (like Pedialyte). 6. See your private doctor on 10/28/2024 for recheck and further care. Ask to review all test results and official radiology reports, to make sure you receive all necessary follow-ups and monitoring. 7. Seek immediate medical care with worsening or with any concerns. Print Language: Nepali Stand Alone Forms: [employer] Info., Patient Portal Info Letter
[2024-10-26 07:52] VITALS: PULSE 82; RESP 16; O2SAT 98
[2024-10-26 07:55] VITALS: BMI 25.0
[2024-10-26] MEDS: MORPHINE SULF INJ 10 MG/ML VIAL 2 MG IVP (08:05)
[2024-10-26] MEDS: SODIUM CHLORIDE 0.9% 1000 ML 1,000 ML 999 ML IV ×2 (08:05→11:22)
[2024-10-26] MEDS: ONDANSETRON INJ 2 MG/ML INJ 2 ML 4 MG IV (08:06)
[2024-10-26 08:11] LABS: Beta Hydroxybutyrate 0.3 mmol/L (<0.6)
[2024-10-26 08:14] LABS: Basophils # (Auto) 0.1 Thou/mm3 (0.0-0.2); Basophils % (Auto) 1 % (0-2.5); Eosinophils % (Auto) 0 % (0-10); Hematocrit 44.6 % (41.0-53.0); Hemoglobin 15.9 g/dL (13.5-16.0); Immature Granulocytes % (Auto) 1 % (0-0); Immature Granulocytes Auto 0.05 Thou/mm3 (0.00-0.00); Lymphocytes # (Auto) 1.5 Thou/mm3 (1.0-4.8); Lymphocytes % (Auto) 14 % (10-50); Mean Corpuscular HGB Conc 35.7 g/dl (31.0-37.0); Mean Corpuscular Hemoglobin 31.6 pg (25.0-35.0); Mean Corpuscular Volume 89 fL (80-100); Monocytes # (Auto) 0.9 Thou/mm3 (0.0-0.8); Monocytes % (Auto) 9 % (0-12); Neutrophils # (Auto) 7.7 Thou/mm3 (1.8-7.7); Neutrophils % (Auto) 75 % (37-80); Nucleated Red Blood Cell % 0 /100 WBC (0); Platelet Count 242 Thou/mm3 (140-440); RDW Standard Deviation 45.6 fL (35.1-43.9); Red Blood Count 5.03 Miln/mm3 (4.50-5.90); White Blood Count 10.2 Thou/mm3 (3.8-10.6)
[2024-10-26 08:25] LABS: B-Type Natriuretic Peptide 22 pg/mL (0-100)
[2024-10-26 08:27] LABS: Alanine Aminotransferase 20 U/L (10-49); Albumin, Serum 4.7 gm/dL (3.4-4.8); Alkaline Phosphatase 60 U/L (46-116); Anion Gap 8 (7-16); Aspartate Amino Transferase 17 U/L (0-34); BUN/Creatinine Ratio 13 Ratio (12-20); Bilirubin,Total 0.3 mg/dL (0.3-1.2); Blood Urea Nitrogen 13 mg/dL (9-23); Calcium 9.2 mg/dL (8.3-10.6); Calcium (Corrected) 9.2 mg/dL (8.5-10.1); Carbon Dioxide 25.7 mMol/L (20.0-31.0); Chloride 102 mMol/L (98-107); Estimated Creatinine Clearance 81.9 mL/min (>60); Globulin 2.4 gm/dL (2.3-3.5); Glucose 160 mg/dL (74-106); Magnesium 1.8 mg/dL (1.6-2.6); Osmolality,Calculated 275 (275-295); Potassium 3.6 mMol/L (3.4-5.1); Sodium 136 mMol/L (136-145); Total Protein 7.1 gm/dL (5.7-8.2); Troponin I < 0.020 ng/mL (0.0-0.045); eGFR > 60 See Note
[2024-10-26 08:29] LABS: Thyroid Stimulating Hormone 1.59 uIU/mL (0.55-4.78)
[2024-10-26 09:28] VITALS: BP 126/72; PULSE 86; RESP 19; TEMP 37; O2SAT 95
[2024-10-26 11:19] LABS: Troponin I < 0.020 ng/mL (0.0-0.045)
[2024-10-26] MEDS: ACETAMINOPHEN w/COD 300-30 TABLET 2 TAB PO (11:22)
== END 2024-10-26 12:18 | disposition home or self-care (01) ==
PROVIDERS: Emergency Provider Emergency Medicine; PCP Physician Assistant
DX: E86.0 Dehydration (principal); S19.9XXA Unspecified injury of neck, initial encounter; S09.90XA Unspecified injury of head, initial encounter; R06.02 Shortness of breath; X58.XXXA Exposure to other specified factors, initial encounter
CPT/HCPCS: 36415; 70450; 71045; 72125; 80053; 82010; 83735; 83880; 84443; 84484; 85025; 87400; 87811; 93005; 96361; 96374; 96375; 99284; J2270; J2405; J7030; A9270

== ENCOUNTER 2024-11-04 09:56 | Emergency (ER) | payer MEDICAID, SELFPAY ==
[2024-11-04 10:04] VITALS: BP 132/84; PULSE 79; RESP 18; TEMP 36.4; O2SAT 95; BMI 26.8
--- NOTE | 2024-11-04 10:06 | EKG_ITS ---
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
--- NOTE | 2024-11-04 10:06 | XR_ITS ---
EXAMINATION: XR chest 1V ORDERING PROVIDER: Amanuel Dover NP HISTORY: SOB TECHNIQUE: Single portable AP radiograph of the chest. COMPARISON: 10/26/2024, chest radiographs. FINDINGS: Coronary artery stents. Uncoiled aorta. Cardiac silhouette normal in size. Emphysematous changes. Interval development of some mild nodular opacities right lung apex and right lateral midlung. No pneumothorax or large pleural effusion. Right costophrenic angle clipped. Bones unchanged. IMPRESSION: Interval development of some nodular opacities in the right upper lobe, which may represent very early pneumonia. Recommend follow-up chest radiographs in 6 weeks.
--- NOTE | 2024-11-04 10:07 | PD.EDRME ---
Rapid Medical Screening Exam [facility] Arrival date/time: 11/04/24 09:56 CC: Dizziness and shortness of breath HPI ongoing for the past 2 to 3 hours. Patient has a significant cardiac history including 9 stents . Patient was discharged a week and a half ago from [facility] after a stent placement , and symptoms started after he started taking the new medications which included Brilinta and ranitidine. Currently patient denies any chest pain. Chief Complaint: Chest Pain Time Seen by Provider: 11/04/24 10:04 Vital signs: Vital Signs Temperature 97.6 F 11/04/24 10:04 Pulse Rate 79 11/04/24 10:04 Respiratory Rate 18 11/04/24 10:04 Blood Pressure 132/84 H 11/04/24 10:04 Pulse Oximetry (%) 95 11/04/24 10:04 Oxygen Delivery Method Room Air 11/04/24 10:04
[2024-11-04 10:31] LABS: Basophils # (Auto) 0.1 Thou/mm3 (0.0-0.2); Basophils % (Auto) 1 % (0-2.5); Eosinophils # (Auto) 0.3 Thou/mm3 (0.0-0.5); Eosinophils % (Auto) 3 % (0-10); Hemoglobin 16.2 g/dL (13.5-16.0); Immature Granulocytes % (Auto) 2 % (0-0); Lymphocytes # (Auto) 3.1 Thou/mm3 (1.0-4.8); Lymphocytes % (Auto) 32 % (10-50); Mean Corpuscular HGB Conc 34.5 g/dl (31.0-37.0); Mean Corpuscular Hemoglobin 30.8 pg (25.0-35.0); Mean Corpuscular Volume 89 fL (80-100); Monocytes # (Auto) 0.8 Thou/mm3 (0.0-0.8); Monocytes % (Auto) 8 % (0-12); Neutrophils # (Auto) 5.1 Thou/mm3 (1.8-7.7); Neutrophils % (Auto) 53 % (37-80); Nucleated Red Blood Cell % 0 /100 WBC (0); Platelet Count 407 Thou/mm3 (140-440); RDW Standard Deviation 45.3 fL (35.1-43.9); Red Blood Count 5.26 Miln/mm3 (4.50-5.90); White Blood Count 9.6 Thou/mm3 (3.8-10.6)
[2024-11-04 10:44] LABS: Partial Thromboplastin Time 27.1 Seconds (22.0-36.0)
[2024-11-04 10:52] LABS: Troponin I < 0.020 ng/mL (0.0-0.045)
[2024-11-04 10:53] LABS: B-Type Natriuretic Peptide 21 pg/mL (0-100)
[2024-11-04 11:01] LABS: Alanine Aminotransferase 36 U/L (10-49); Albumin, Serum 4.6 gm/dL (3.4-4.8); Albumin/Globulin Ratio 1.6 (1.2-2.2); Alkaline Phosphatase 75 U/L (46-116); Anion Gap 9 (7-16); Aspartate Amino Transferase 23 U/L (0-34); BUN/Creatinine Ratio 16 Ratio (12-20); Bilirubin,Total 0.5 mg/dL (0.3-1.2); Blood Urea Nitrogen 14 mg/dL (9-23); Calcium 10.2 mg/dL (8.3-10.6); Calcium (Corrected) 10.2 mg/dL (8.5-10.1); Carbon Dioxide 25.8 mMol/L (20.0-31.0); Chloride 106 mMol/L (98-107); Creatinine (Component) 0.9 mg/dL (0.6-1.3); Estimated Creatinine Clearance 77.5 mL/min (>60); Globulin 2.9 gm/dL (2.3-3.5); Glucose 154 mg/dL (74-106); Osmolality,Calculated 284 (275-295); Potassium 4.6 mMol/L (3.4-5.1); Sodium 141 mMol/L (136-145); Total Protein 7.5 gm/dL (5.7-8.2); eGFR > 60 See Note
[2024-11-04 11:31] LABS: Bilirubin,Urine Negative (Negative); Blood,Urine Negative (Negative); Clarity,Urine Clear (Clear/Hazy); Collection Type, Urine Clean Catch; Color,Urine Lt-Yellow (Lt Yel-Yel); Glucose, Urine Negative (Negative); Ketones,Urine Negative (Negative); Leukocyte Esterase,Urine Negative (Negative); Nitrite,Urine Negative (Negative); PH,Urine 5.5 (5.0-7.0); Protein,Urine Negative (Neg - Trace); RBC,Urine 2 /hpf (0-3); Specific Gravity,Urine 1.022 (1.001-1.035); Squamous Epithelial Cell,Urine 0 /hpf (0-5); Urobilinogen,Urine Negative mg/dL (0.0-1.0); WBC,Urine 1 /hpf (0-5)
[2024-11-04 13:48] VITALS: BP 146/88; PULSE 72; RESP 18; TEMP 36.6; O2SAT 96
--- NOTE | 2024-11-04 13:53 | EDNOTE_ITS ---
<Statement entered by Franci Fan MD - 11/15/24 08:22> As co-signing physician, I was present and available for consult prn. I concur with the plan and care as documented by the midlevel provider. ED General RME/HPI General Chief complaint: Chest Pain Stated complaint: CHEST PAIN AND HARD TIME BREATHING Time Seen by Provider: 11/04/24 10:04 Arrival date/time: 11/04/24 09:56 RME / HPI RME / HPI narrative: 64-year-old male patient came in for evaluation regarding cough. Patient's been having cough, shortness of breath, for the last several days, getting worse for the last 2 to 3 hours. Patient denies any chest pain. Also complaining of chronic neck pain, and dizziness. Significant history includes dizziness and shortness of breath. Patient has a significant cardiac history including 9 stents . [facility] , and symptoms started after he started taking the new medications which included Brilinta and ranitidine. Currently patient denies any chest pain. Related Data Home Medications ?Medication ?Instructions ?Recorded ?Confirmed albuterol sulfate 90 mcg/actuation 2 puff inhalation Q 4H 10/05/21 11/18/21 aerosol inhaler docusate sodium 100 mg capsule 100 mg PO BID 10/05/21 11/18/21 nitroglycerin 0.4 mg sublingual 0.4 mg buccal [id number] PRN CHESTPAIN 10/05/21 09/06/22 tablet Previous Rx's ?Medication ?Instructions ?Recorded apixaban 2.5 mg tablet (Eliquis) 5 mg (2 x 2.5 mg) PO BID 30 days 09/07/22 #120 tabs aspirin 81 mg tablet,delayed 81 mg PO QDAY 30 days #30 tabs 09/07/22 release clopidogrel 75 mg tablet 75 mg PO QDAY 30 days #30 ta bs 09/07/22 losartan 25 mg tablet 50 mg (2 x 25 mg) PO QDAY 30 days 09/07/22 #60 tabs metoprolol succinate 25 mg 50 mg (2 x 25 mg) PO QDAY 3 0 days 09/07/22 tablet,extended release 24 hr #60 tabs fluticasone propionate 50 2 spray intranasal QDAY #16 grams 11/24/22 mcg/actuation nasal spray,suspension (Flonase Allergy Relief) meclizine 50 mg tablet (Antivert) 50 mg PO BID PRN diz ziness or 11/24/22 vertigo #14 tabs nicotine 7 mg/24 hr daily 7 mg topical QDAY #14 ea transdermal patch albuterol sulfate 90 mcg/actuation 90 mcg inhalation Q 6H PRN 06/03/24 breath activated powder shortness of breath or wheez ing #1 inhaler,sensor (Proair Digihaler) ea atorvastatin 20 mg tablet 80 mg (4 x 20 mg) PO HS #30 tabs 10/04/24 ondansetron 4 mg disintegrating 4 mg PO TID PRN nausea and 10/26/24 tablet vomiting 30 days #10 tabs doxycycline hyclate 100 mg capsule 100 mg PO BID #14 c aps 11/04/24 meloxicam 15 mg tablet 15 mg PO QDAY #20 tabs 11/04 Allergies Allergy/AdvReac Type Severity Reaction Status Date / Time almond oil Allergy Severe Difficulty Verified 11/04/24 09:59 Breathing Iodinated Contrast Media Allergy Severe Hives Verified 11/04/24 09:59 pecan nut Allergy Severe Difficulty Verified 11/04/24 09:59 Breathing tree nut Allergy Severe Difficulty Verified 11/04/24 09:59 Breathing walnut Allergy Severe Difficulty Verified 11/04/24 09:59 Breathing Review of Systems Review of Systems Narrative Review of Systems: Review of system reviewed and within normal limits except mentioned in HPI ED Exam Narrative Physical exam: VITAL SIGNS: Reviewed. GENERAL APPEARANCE: Alert and interactive, follows commands, no acute distress, HEAD AND FACE: Non-traumatic. ENT: PERRL, pink conjunctivitis, eyelid no trauma, Mucous membrane moist. NECK: Supple, nontender, no nuchal rigidity. CHEST: No tenderness, no crepitus, no paradoxical movement, no retractions. LUNGS: Clear, well ventilated, symmetric, no rales, no wheezing, no ronchi, no stridor, good breath sounds bilaterally. HEART: Regular rate, regular rhythm, no murmur, no gallops. ABDOMEN: Soft, positive bowel sounds, nondistended, no guarding, nontender, no rebound, no masses, RECTAL: Deferred. GENITAL: Deferred. NEUROLOGICAL: Gross motor function intact sensory function intact, Appropriate for age. MUSCULOSKELETAL: low back nontender, full range of motion. EXTREMITIES: Nontender, full range of motion. SKIN: Color pink, dry, no rash, no lacerations, no abrasions, no contusions. LYMPHATICS: Deferred. Course Quality Measures none Orders Category Date Time Status EKG (ED ONLY) *Do not use* NOW Care 11/04/24 10:06 Completed EKG (ED Only) Stat Exams 11/04/24 10:06 Draft XR chest 1V Stat Exams 11/04/24 10:06 Completed B-Type Natriuretic Peptide Stat Lab 11/04/24 10:13 Completed CBC Stat Lab 11/04/24 10:13 Completed Comprehensive Metabolic Panel Stat Lab 11/04/24 10:13 Results Drug Screen,Urine Stat Lab 11/04/24 10:34 Ordered LDH (Lactate Dehydrogenase) Stat Lab 11/04/24 10:13 Results Magnesium Stat Lab 11/04/24 10:13 Results Partial Thromboplastin Time Stat Lab 11/04/24 10:13 Completed Prothrombin Time with INR Stat Lab 11/04/24 10:13 Completed Troponin I Stat Lab 11/04/24 10:13 Results Urinalysis Stat Lab 11/04/24 10:34 Completed Doxycycline [Vibramycin] Med 11/04/24 13:47 Discontinued 100 mg PO X1 ONE Ketorolac Inj [Toradol Inj] Med 11/04/24 13:47 Discontinued 30 mg IM X1 ONE Vital Signs Vital signs: Vital Signs Temperature 97.6 F 11/04/24 10:04 Pulse Rate 79 11/04/24 10:04 Respiratory Rate 18 11/04/24 10:04 Blood Pressure 132/84 H 11/04/24 10:04 Pulse Oximetry (%) 95 11/04/24 10:04 Oxygen Delivery Method Room Air 11/04/24 10:04 [facility] Patient data External records reviewed:: None Clinical information provided by:: none Social determinants that could affect healthcare access:: none Patient has the following chronic illnesses:: CAD, hypercholesterolemia, hypertension How is presenting disease/condition affected by chronic disease/condition?: e xacerbated by Evaluation data The following diagnostics were reviewed and interpreted by me:: lab results, radiology exam(s) and EKG tracing(s) Lab and/or radiology exams considered but not ordered:: None Interpretation Summary: Laboratory workup all came back unremarkable troponin is normal. No leukocytosis also noted. Chest x-ray showed Interval development of some nodular opacities in the right upper lobe, which may represent very early pneumonia. Recommend follow-up chest radiographs in 6 week EKG showed normal sinus rhythm, ventricular rate of 69 bpm, no ST segment elevation depression noted. Medications Medications considered but not ordered:: None Medication administrations:: Medication Administration History Discontinued Medications Doxycycline Hyclate (Doxycycline 100 Mg Tablet) 100 mg PO X1 ONE Stop: 11/04/24 13:48 Ketorolac Tromethamine (Ketorolac Inj 60 Mg/2 Ml Vial) 30 mg IM X1 ONE Stop: 11/04/24 13:48 Doxy and Toradol IM Consultations Consultation(s) initiated? (list below): No Diagnosis Differential Diagnosis ED Complaint MDM: Pneumonia, chronic neck pain, dizziness Most likely diagnosis given after review of the tests above:: Pneumonia, chronic neck pain Admission Indicated Admission indicated?: not indicated Explain why admission is indicated or not indicated:: Stable Admission Request Was there a request for admission?: No Disposition Plan Disposition Plan: Discharge Discharge Attestation Discharge Attestation: The patient was given an opportunity to ask questions and understood the discharge instructions. Discharge instructions specifically effects, indications for sooner follow up or return to the emergency department, and the expected course of current diagnosis. Patient condition: Stable Medical Decision Making MDM Narrative MDM Narrative: 64-year-old male patient came in for evaluation regarding cough. Patient's been having cough, shortness of breath, for the last several days, getting worse for the last 2 to 3 hours. Patient denies any chest pain. Also complaining of chronic neck pain, and dizziness. Significant history includes dizziness and shortness of breath. Patient has a significant cardiac history including 9 stents . [facility] , and symptoms started after he started taking the new medications which included Brilinta and ranitidine. Differential Diagnosis Differential Diagnosis: Pneumonia, chronic neck pain, dizziness Lab Data 11/04/24 10:13 11/04/24 10:13 Labs: Lab Results 11/04/24 11/04/24 Range/Units 10:13 10:34 WBC 9.6 (3.8-10.6) Thou/mm3 RBC 5.26 (4.50-5.90) Miln/mm3 Hgb 16.2 H (13.5-16.0) g/dL Hct 47.0 (41.0-53.0) % MCV 89 (80-100) fL MCH 30.8 (25.0-35.0) pg MCHC 34.5 (31.0-37.0) g/dl RDW Std Deviation 45.3 H (35.1-43.9) fL Plt Count 407 D (140-440) Thou/mm3 Neut % (Auto) 53 (37-80) % Lymph % (Auto) 32 (10-50) % [place] % (Auto) 8 (0-12) % Eos % (Auto) 3 (0-10) % Baso % (Auto) 1 (0-2.5) % Neut # (Auto) 5.1 (1.8-7.7) Thou/mm3 Lymph # (Auto) 3.1 (1.0-4.8) Thou/mm3 [place] # (Auto) 0.8 (0.0-0.8) Thou/mm3 Eos # (Auto) 0.3 (0.0-0.5) Thou/mm3 Baso # (Auto) 0.1 (0.0-0.2) Thou/mm3 Immature Gran # (Auto) 0.20 H (0.00-0.00) Thou/mm3 Absolute Nucleated RBC 0.00 (0.00-0.00) Thou/mm3 Immature Gran % 2 H (0-0) % Nucleated RBC % 0 (0) /100 WBC PT 11.0 (9.0-12.2) Seconds INR 1.0 (0.9-1.3) APTT 27.1 (22.0-36.0) Seconds Sodium 141 (136-145) mMol/L Potassium 4.6 (3.4-5.1) mMol/L Chloride 106 (98-107) mMol/L Carbon Dioxide 25.8 (20.0-31.0) mMol/L Anion Gap 9 (7-16) BUN 14 (9-23) mg/dL Creatinine 0.9 (0.6-1.3) mg/dL Estim Creat Clear Calc 77.5 (>60) mL/min eGFR > 60 (60 - ) See Note BUN/Creatinine Ratio 16 (12-20) Ratio Glucose 154 H (74-106) mg/dL Calculated Osmolality 284 (275-295) Calcium 10.2 (8.3-10.6) mg/dL Corrected Calcium 10.2 H (8.5-10.1) mg/dL Magnesium 2.0 (1.6-2.6) mg/dL Total Bilirubin 0.5 (0.3-1.2) mg/dL AST 23 (0-34) U/L ALT 36 (10-49) U/L Alkaline Phosphatase 75 (46-116) U/L Troponin I < 0.020 (0.0-0.045) ng/mL B-Natriuretic Peptide 21 (0-100) pg/mL Total Protein 7.5 (5.7-8.2) gm/dL Albumin 4.6 (3.4-4.8) gm/dL Globulin 2.9 (2.3-3.5) gm/dL Albumin/Globulin Ratio 1.6 (1.2-2.2) Ur Collection Type Clean Catch Urine Color Lt-Yellow (Lt Yel-Yel) Urine Clarity Clear (Clear/Hazy) Urine pH 5.5 (5.0-7.0) Ur Specific [place] 1.022 (1.001-1.035) Urine Protein Negative (Neg - Trace) Urine Glucose (UA) Negative (Negative) Urine Ketones Negative (Negative) Urine Blood Negative (Negative) Urine Nitrite Negative (Negative) Urine Bilirubin Negative (Negative) Urine Urobilinogen (Auto) Negative (0.0-1.0) mg/dL Ur Leukocyte Esterase Negative (Negative) Urine RBC 2 (0-3) /hpf Urine WBC 1 (0-5) /hpf Ur Squamous Epith Cells 0 (0-5) /hpf Urine Bacteria None (None) Discharge Plan Plan Patient Disposition: HOME (Self Care) Disposition Comment: Stable Prescriptions/Referrals Prescriptions/Med Rec: New doxycycline hyclate 100 mg capsule 100 mg PO BID Qty: 14 0RF meloxicam 15 mg tablet 15 mg PO QDAY Qty: 20 0RF No Action nitroglycerin 0.4 mg tablet, sublingual 0.4 mg BUCCAL [id number] PRN (Reason: CHESTPAIN) Patient Comments: PLACE 1 TABLET UNDER TONGUE EVERY 5 MINS, UP TO 3 DOSES PER 15MIN NEEDED FOR CHEST PAIN GO TO ER docusate sodium 100 mg capsule 100 mg PO BID Patient Comments: TAKE 1 CAPSULE BY MOUTH TWICE A DAY albuterol sulfate 90 mcg/actuation HFA aerosol inhaler 2 puff INHALATION Q4H Patient Comments: INHALE 2 PUFFS BY MOUTH EVERY 4 HOURS NEEDED FOR WHEEZING Eliquis 2.5 mg Tablet 5 mg PO BID 30 Days Qty: 120 2RF aspirin 81 mg Tablet,Delayed Release (Dr/Ec) 81 mg PO QDAY 30 Days Qty: 30 2RF clopidogrel 75 mg Tablet 75 mg PO QDAY 30 Days Qty: 30 2RF losartan 25 mg Tablet 50 mg PO QDAY 30 Days Qty: 60 2RF metoprolol succinate 25 mg Tablet Extended Release 24 Hr 50 mg PO QDAY 30 Days Qty: 60 2RF Proair Digihaler 90 mcg/actuation aero powdr breath act w/sensor 90 mcg inhalation Q6H PRN (Reason: shortness of breath or wheezing) Qty: 1 0RF atorvastatin 20 mg Tablet 80 mg PO HS Qty: 30 0RF fluticasone propionate [Flonase Allergy Relief] 50 mcg/actuation spray,suspension 2 spray intranasal QDAY Qty: 16 0RF Rx Instructions: administer into each nostril Antivert 50 mg tablet 50 mg PO BID PRN (Reason: dizziness or vertigo) Qty: 14 0RF nicotine 7 mg/24 hr patch 24 hour 7 mg topical QDAY Qty: 14 0RF ondansetron 4 mg tablet,disintegrating 4 mg PO TID PRN (Reason: nausea and vomiting) 30 Days Qty: 10 0RF Referrals: No Primary/Family,Physician [Primary Care Provider] - In 1 week Problem List Clinical Impression: PNA (pneumonia), Chronic neck pain Patient/Caregiver Discharge Instructions Education Materials: ED Back and Neck Pain, General Additional Instructions: Thank you for the opportunity for serving you today. You are stable for discharged . You are advised to: Follow-up with your PCP in 1 to 2 days Return to ED for worsening of symptoms Increase oral fluids Take medication as prescribed Print Language: Spanish Stand Alone Forms: [employer] Award Info., Patient Portal Info Letter PA/DISHCLOTH FOLDER Supervising Physician KATHLEEN/NAVEED Supervising Physician: MD Meng
[2024-11-04] MEDS: KETOROLAC INJ 60 MG/2 ML VIAL 30 MG IM (14:09)
[2024-11-04] MEDS: DOXYCYCLINE 100 MG TABLET PO (14:09)
[2024-11-04 14:24] LABS: Amphetamine/Methamp Scrn,U Negative (Negative); Barbiturate Screen,Urine Negative (Negative); Benzodiazepines Screen,Urine Negative (Negative); Benzoylecgonine Screen, Ur Negative (Negative); Fentanyl Screen,Urine Negative (Negative); Opiate Screen,Urine Negative (Negative); THC Screen,Urine Negative (Negative)
[2024-11-04 15:19] LABS: LDH (Lactate Dehydrogenase) 197 U/L (120-246)
== END 2024-11-04 14:35 | disposition home or self-care (01) ==
PROVIDERS: Registered Nurse General Practice; Emergency Provider Emergency Medicine
DX: J18.9 Pneumonia, unspecified organism (principal); G89.29 Other chronic pain; M54.2 Cervicalgia; R94.31 Abnormal electrocardiogram [ECG] [EKG]; I10 Essential (primary) hypertension; E78.00 Pure hypercholesterolemia, unspecified; I25.10 Atherosclerotic heart disease of native coronary artery without angina pectoris; Z79.01 Long term (current) use of anticoagulants; Z95.5 Presence of coronary angioplasty implant and graft
CPT/HCPCS: 36415; 71045; 80053; 80307; 81001; 83615; 83735; 83880; 84484; 85025; 85610; 85730; 93005; 96372; 99283; J1885; A9270

== ENCOUNTER 2025-01-28 11:45 | Emergency (ER) | payer MEDICARE, MEDICAID, SELFPAY ==
[2025-01-28 12:17] VITALS: BP 136/87; PULSE 91; RESP 20; TEMP 36.3; O2SAT 94; BMI 28.9
--- NOTE | 2025-01-28 12:26 | EKG_ITS ---
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1960 Requested By: Patrick Ramírez Order Number: [id number] Reading MD: Patrick Ramírez Measurements Intervals [place] Rate: 84 P: 44 NM: 133 QRS: -32 QRSD: 114 T: 65 QT: 297 QTc: 352 Interpretive Statements SINUS RHYTHM LEFT AXIS DEVIATION [QRS AXIS < -30] INCOMPLETE RIGHT BUNDLE BRANCH BLOCK [90+ ms QRS DURATION, TERMINAL R IN V1/V2, 40+ ms S IN I/aVL/V4/V5/V6] SEPTAL MYOCARDIAL INFARCTION , OF INDETERMINATE AGE [40+ ms Q WAVE IN V1/V2] Compared to ECG 11/04/2024 10:15:19 Left-axis deviation now present Incomplete right bundle-branch block now present Myocardial infarct finding still present /store/S0/[id number].pdf
--- NOTE | 2025-01-28 12:26 | XR_ITS ---
Examination: PA lateral chest 2 views TECHNIQUE: Upright PA lateral chest 2 views Date and time: January 28, 2025 12:35 PM Comparison November 04, 2024 INDICATIONS: Chest pain numbness in the arms one week. FINDINGS: Significant hyperexpansion Normal heart size No pneumonia or pulmonary edema IMPRESSION: Significant hyperexpansion
--- NOTE | 2025-01-28 12:26 | PD.EDRME ---
Rapid Medical Screening Exam RME Arrival date/time: 01/28/25 11:45 64-year-old male with a history of hypertension, multiple CVAs, hypertension presents to the emergency room with a chief complaint of 4 out of 10 sternal chest pain and numbness to his bilateral arms x 1 day I have greeted and performed a focused initial assessment of this patient. A comprehensive ED assessment and evaluation of the patient, analysis of all test results, and completion of the medical decision making process will be conducted by additional ED providers. Chief Complaint: General Adult/Misc Complain Time Seen by Provider: 01/28/25 12:06 Vital signs: Vital Signs Temperature 97.4 F 01/28/25 12:17 Pulse Rate 91 01/28/25 12:17 Respiratory Rate 20 01/28/25 12:17 Blood Pressure 136/87 H 01/28/25 12:17 Pulse Oximetry (%) 94 L 01/28/25 12:17 Oxygen Delivery Method Room Air 01/28/25 12:17 Vital signs reviewed by provider: Yes
[2025-01-28 12:50] LABS: Basophils # (Auto) 0.1 Thou/mm3 (0.0-0.2); Basophils % (Auto) 1 % (0-2.5); Eosinophils # (Auto) 0.1 Thou/mm3 (0.0-0.5); Eosinophils % (Auto) 1 % (0-10); Hematocrit 43.8 % (41.0-53.0); Immature Granulocytes % (Auto) 1 % (0-0); Immature Granulocytes Auto 0.07 Thou/mm3 (0.00-0.00); Lymphocytes # (Auto) 2.3 Thou/mm3 (1.0-4.8); Lymphocytes % (Auto) 23 % (10-50); Mean Corpuscular HGB Conc 36.5 g/dl (31.0-37.0); Mean Corpuscular Hemoglobin 31.4 pg (25.0-35.0); Mean Corpuscular Volume 86 fL (80-100); Monocytes # (Auto) 0.9 Thou/mm3 (0.0-0.8); Monocytes % (Auto) 9 % (0-12); Neutrophils # (Auto) 6.4 Thou/mm3 (1.8-7.7); Neutrophils % (Auto) 65 % (37-80); Nucleated Red Blood Cell % 0 /100 WBC (0); Platelet Count 252 Thou/mm3 (140-440); RDW Standard Deviation 42.9 fL (35.1-43.9)
[2025-01-28 13:04] LABS: Partial Thromboplastin Time 26.4 Seconds (22.0-36.0)
[2025-01-28 13:06] LABS: B-Type Natriuretic Peptide 20 pg/mL (0-100)
[2025-01-28 13:09] LABS: Alanine Aminotransferase 19 U/L (10-49); Albumin, Serum 4.6 gm/dL (3.4-4.8); Albumin/Globulin Ratio 2.1 (1.2-2.2); Alkaline Phosphatase 60 U/L (46-116); Anion Gap 12 (7-16); Aspartate Amino Transferase 18 U/L (0-34); BUN/Creatinine Ratio 14 Ratio (12-20); Bilirubin,Total 0.7 mg/dL (0.3-1.2); Blood Urea Nitrogen 13 mg/dL (9-23); Calcium 8.9 mg/dL (8.3-10.6); Calcium (Corrected) 8.9 mg/dL (8.5-10.1); Carbon Dioxide 23.7 mMol/L (20.0-31.0); Chloride 105 mMol/L (98-107); Creatinine (Component) 0.9 mg/dL (0.6-1.3); Estimated Creatinine Clearance 85.8 mL/min (>60); Globulin 2.2 gm/dL (2.3-3.5); Glucose 167 mg/dL (74-106); Osmolality,Calculated 285 (275-295); Potassium 4.1 mMol/L (3.4-5.1); Sodium 141 mMol/L (136-145); Total Protein 6.8 gm/dL (5.7-8.2); Troponin I < 0.020 ng/mL (0.0-0.045); eGFR > 60 See Note
[2025-01-28 13:15] LABS: Collection Type, Urine Clean Catch; Squamous Epithelial Cell,Urine 0 /hpf (0-5)
[2025-01-28 13:18] LABS: Bilirubin,Urine Negative (Negative); Blood,Urine Negative (Negative); Clarity,Urine Clear (Clear/Hazy); Color,Urine Lt-Yellow (Lt Yel-Yel); Glucose, Urine Negative (Negative); Ketones,Urine Negative (Negative); Leukocyte Esterase,Urine Negative (Negative); Nitrite,Urine Negative (Negative); PH,Urine 5.5 (5.0-7.0); Protein,Urine Trace (Neg - Trace); RBC,Urine 1 /hpf (0-3); Urobilinogen,Urine Negative mg/dL (0.0-1.0); WBC,Urine 1 /hpf (0-5)
[2025-01-28 14:12] VITALS: BP 133/83; PULSE 89; RESP 18; TEMP 36.5; O2SAT 95
--- NOTE | 2025-01-28 14:43 | EKG_ITS ---
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
[2025-01-28] MEDS: TICAGRELOR 90 MG TABLET PO (15:00)
--- NOTE | 2025-01-28 15:15 | PD.EDADULT ---
ED General RME/HPI General Chief complaint: General Adult/Misc Complain Stated complaint: NUMBNESS OF B/L ARMS & B/L LEGS, CROSS Time Seen by Provider: 01/28/25 12:06 Arrival date/time: 01/28/25 11:45 RME / HPI RME / HPI narrative: A 64-year-old male patient with past medical history of coronary artery disease reportedly status post 5 stents placements, hyperlipidemia, hypertension, COPD not on any oxygen at home, type 2 diabetes mellitus, GERD, recurrent migraines came to the ED due to mild chest pain 4 out of 10 that started while he was preparing his breakfast. Patient reported that the pain centrally located with no radiation. Patient reported that he has had this pain multiple times in the past in which she take sublingual nitroglycerin. This time he did not take it because of the hot flashes and the pain has resolved. He reported that for the past month he has been having tingling and numbness in both extremities. Patient denied any shortness of breath, orthopnea, paroxysmal nocturnal dyspnea, and denied any palpitation. Patient reported that his insurance was switched for that reason he was not able to take his home medications he only take aspirin. On questioning patient reported that his stents were placed multiple times by different doctors, last 1 was placed 1 year ago however he does not remember the mountain or glacier guide name. In review of the patient medication he was supposed to be on Lipitor, aspirin, Brilinta, metoprolol. Related Data Home Medications ?Medication ?Instructions ?Recorded ?Confirmed albuterol sulfate 90 mcg/actuation 2 puff inhalation Q4H 10/05/21 11/18/21 aerosol inhaler docusate sodium 100 mg capsule 100 mg PO BID 10/05/21 11/18/21 nitroglycerin 0.4 mg sublingual 0.4 mg buccal [id number] PRN CHESTPAIN 10/05/21 09/06/22 tablet Previous Rx's ?Medication ?Instructions ?Recorded apixaban 2.5 mg tablet (Eliquis) 5 mg (2 x 2.5 mg) PO BID 30 days 09/07/22 #120 tabs aspirin 81 mg tablet,delayed 81 mg PO QDAY 30 days #30 tabs 09/07/22 release clopidogrel 75 mg tablet 75 mg PO QDAY 30 days #30 tabs 01/14/23 losartan 25 mg tablet 50 mg (2 x 25 mg) PO QDAY 30 days 09/07/22 #60 tabs metoprolol succinate 25 mg 50 mg (2 x 25 mg) PO QDAY 30 days 09/07/22 tablet,extended release 24 hr #60 tabs fluticasone propionate 50 2 spray intranasal QDAY #16 grams 11/24/22 mcg/actuation nasal spray,suspension (Flonase Allergy Relief) meclizine 50 mg tablet (Antivert) 50 mg PO BID PRN dizziness or 11/24/22 vertigo #14 tabs nicotine 7 mg/24 hr daily 7 mg topical QDAY #14 ea 11/12/23 transdermal patch albuterol sulfate 90 mcg/actuation 90 mcg inhalation Q6H PRN 06/03/24 breath activated powder shortness of breath or wheezing #1 inhaler,sensor (Proair Digihaler) ea atorvastatin 20 mg tablet 80 mg (4 x 20 mg) PO HS #30 tabs 10/04/24 doxycycline hyclate 100 mg capsule 100 mg PO BID #14 caps 11/04/24 meloxicam 15 mg tablet 15 mg PO QDAY #20 tabs 11/04/24 aspirin 81 mg capsule 81 mg PO QDAY #7 caps 01/28/25 ticagrelor 90 mg tablet (Brilinta) 90 mg PO BID 7 days #14 tabs 01/28/25 Allergies Allergy/AdvReac Type Severity Reaction Status Date / Time almond oil Allergy Severe Difficulty Verified 01/28/25 11:48 Breathing Iodinated Contrast Media Allergy Severe Hives Verified 01/28/25 11:48 pecan nut Allergy Severe Difficulty Verified 01/28/25 11:48 Breathing tree nut Allergy Severe Difficulty Verified 01/28/25 11:48 Breathing walnut Allergy Severe Difficulty Verified 01/28/25 11:48 Breathing ED Exam Narrative Physical exam: GEN: AOx3, able to speak full sentences HEENT: NC/AC, oral mucosa moist, neck supple CVS: RRR, S1-S2 present, no murmurs appreciated RESP: Mild decreased air entry bilaterally GI: soft,non distended, non tender, NBS MSK: able to move all 4 limbs, no lower extremity edema SKIN: warm and dry STAFFING AND SCHEDULING COORDINATOR: CN II-XII and Sensation grossly intact. Course Quality Measures none Orders Category Date Time Status EKG (ED ONLY) *Do not use* NOW Care 01/28/25 12:26 Completed EKG (ED ONLY) *Do not use* NOW Care 01/28/25 14:44 Completed EKG (ED Only) Stat Exams 01/28/25 12:26 Draft EKG (ED Only) Stat Exams 01/28/25 14:43 Draft XR chest 2V Stat Exams 01/28/25 12:26 Completed B-Type Natriuretic Peptide Stat Lab 01/28/25 12:38 Completed CBC Stat Lab 01/28/25 12:38 Completed Comprehensive Metabolic Panel Stat Lab 01/28/25 12:38 Completed Partial Thromboplastin Time Stat Lab 01/28/25 12:38 Completed Prothrombin Time with INR Stat Lab 01/28/25 12:38 Completed Troponin I Stat Lab 01/28/25 12:38 Completed Troponin I Stat Lab 01/28/25 15:35 Completed Urinalysis Stat Lab 01/28/25 13:09 Completed Ticagrelor [Brilinta] Med 01/28/25 14:43 Discontinued 90 mg PO X1 ONE Vital Signs Vital signs: Vital Signs Temperature 97.4 F 01/28/25 12:17 Pulse Rate 91 01/28/25 12:17 Respiratory Rate 20 01/28/25 12:17 Blood Pressure 136/87 H 01/28/25 12:17 Pulse Oximetry (%) 94 L 01/28/25 12:17 Oxygen Delivery Method Room Air 01/28/25 12:17 Discharge Plan Plan Patient Disposition: HOME (Self Care) Patient condition on transfer: Stable and Benefits outweigh risks Health Concerns: Follow-up with your primary care provider within 1 week of discharge You must follow-up with your mountain or glacier guide within 1 week from discharge Avoid heavy activities Use the medications as prescribed We refilled your aspirin and Brilinta as per your medication list for 1 week till you get the appointment with the mountain or glacier guide for further recommendations In case of any signs of excessive bleeding please stop the medication and return to the ED as soon as possible In case of worsening of your chest pain, shortness of breath, heart racing please return to the ED as soon as possible Prescriptions/Referrals Prescriptions/Med Rec: New aspirin 81 mg capsule 81 mg PO QDAY Qty: 7 0RF ticagrelor [Brilinta] 90 mg tablet 90 mg PO BID 7 Days Qty: 14 0RF No Action nitroglycerin 0.4 mg tablet, sublingual 0.4 mg BUCCAL [id number] PRN (Reason: CHESTPAIN) Patient Comments: PLACE 1 TABLET UNDER TONGUE EVERY 5 MINS, UP TO 3 DOSES PER 15MIN NEEDED FOR CHEST PAIN GO TO ER docusate sodium 100 mg capsule 100 mg PO BID Patient Comments: TAKE 1 CAPSULE BY MOUTH TWICE A DAY albuterol sulfate 90 mcg/actuation HFA aerosol inhaler 2 puff INHALATION Q4H Patient Comments: INHALE 2 PUFFS BY MOUTH EVERY 4 HOURS NEEDED FOR WHEEZING Eliquis 2.5 mg Tablet 5 mg PO BID 30 Days Qty: 120 2RF aspirin 81 mg Tablet,Delayed Release (Dr/Ec) 81 mg PO QDAY 30 Days Qty: 30 2RF clopidogrel 75 mg Tablet 75 mg PO QDAY 30 Days Qty: 30 2RF losartan 25 mg Tablet 50 mg PO QDAY 30 Days Qty: 60 2RF metoprolol succinate 25 mg Tablet Extended Release 24 Hr 50 mg PO QDAY 30 Days Qty: 60 2RF Proair Digihaler 90 mcg/actuation aero powdr breath act w/sensor 90 mcg inhalation Q6H PRN (Reason: shortness of breath or wheezing) Qty: 1 0RF atorvastatin 20 mg Tablet 80 mg PO HS Qty: 30 0RF doxycycline hyclate 100 mg capsule 100 mg PO BID Qty: 14 0RF meloxicam 15 mg tablet 15 mg PO QDAY Qty: 20 0RF fluticasone propionate [Flonase Allergy Relief] 50 mcg/actuation spray,suspension 2 spray intranasal QDAY Qty: 16 0RF Rx Instructions: administer into each nostril Antivert 50 mg tablet 50 mg PO BID PRN (Reason: dizziness or vertigo) Qty: 14 0RF nicotine 7 mg/24 hr patch 24 hour 7 mg topical QDAY Qty: 14 0RF Referrals: Jacinto Valadez PA-C [Primary Care Provider] - In 1 week Problem List Clinical Impression: ASHD (arteriosclerotic heart disease), Atypical chest pain Patient/Caregiver Discharge Instructions Discharge Activity: as per the cardiac rehab Education Materials: CAD Print Language: Irish Stand Alone Forms: [employer] Award Info., Patient Portal Info Letter MD Attestation Attestation I, Alex Caban MD, have reviewed the history, exam, and assessment of the patient. I have evaluated the patient independently and agree with the plan of care documented by [ ]. All diagnostic studies were reviewed and discussed. I confirm the diagnosis as documented by the Resident. I was present during the Medical Decision Making for this patient. The patient's plan of care was created between myself and the Resident and consistent with our discussion of the patient's case. Note I saw this patient and familiar with his he was chest pain-free and was advised return if getting worse and follow-up with his mountain or glacier guide in [place]. MDM Narrative Sign out note: Patient is known case of coronary artery disease status post 5 stent placement by mountain or glacier guide, patient has difficulty keeping records for his mountain or glacier guide. Reported that for the past week he was not able to get his medications because he was switched his insurance. Patient reported that the pain has resolved at this time. His EKG did not show ischemic changes, repeat EKG after 3 hours was also negative for any changes. Troponins 4 hours apart both of them were negative. Limvalencia the patient patient reported that the pain has resolved completely. Patient was unable comfortably. Will discharge patient with the recommendations to see his mountain or glacier guide within 1 week of discharge. Will prescribe patient aspirin and Brilinta as he reported that he has not taken Brilinta for the past 1 week because of insurance issues and he will follow-up with the mountain or glacier guide for further evaluation as last time he seen the mountain or glacier guide was 1 year ago. Medication Administration(s) Medication Administration History Discontinued Medications Ticagrelor (Ticagrelor 90 Mg Tablet) 90 mg PO X1 ONE Stop: 01/28/25 14:44 Last Admin: 01/28/25 15:00 Dose: 90 mg Documented By: KHRIS
[2025-01-28 16:08] LABS: Troponin I < 0.020 ng/mL (0.0-0.045)
[2025-01-28 16:15] VITALS: BP 128/90; PULSE 78
== END 2025-01-28 16:16 | disposition home or self-care (01) ==
PROVIDERS: Nurse Practitioner Family; Student in an Organized Health Care Education/Training Program; Emergency Provider Emergency Medicine; PCP Physician Assistant
DX: I25.10 Atherosclerotic heart disease of native coronary artery without angina pectoris (principal); R94.31 Abnormal electrocardiogram [ECG] [EKG]; I10 Essential (primary) hypertension; E78.5 Hyperlipidemia, unspecified; Z95.5 Presence of coronary angioplasty implant and graft; Z79.01 Long term (current) use of anticoagulants
CPT/HCPCS: 36415; 71046; 80053; 81001; 83880; 84484; 85025; 85610; 85730; 93005; 99283

== ENCOUNTER 2025-03-19 12:50 | Inpatient (IN) | payer MEDICARE, MEDICAID, SELFPAY ==
[2025-03-19] VITALS (8 sets, daily range): BP systolic 123–160; BP diastolic 80–100; PULSE 63–88; RESP 13–94; TEMP 36.6–36.9; O2SAT 94–98; BMI 29.9
--- NOTE | 2025-03-19 12:55 | EKG_ITS ---
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: : 1960 Requested By: ED Temporary Provider Order Number: [id number] Reading MD: ED Temporary Provider Measurements Intervals [place] Rate: 89 P: 48 TX: 129 QRS: -29 QRSD: 114 T: 62 QT: 353 QTc: 430 Interpretive Statements SINUS RHYTHM INCOMPLETE RIGHT BUNDLE BRANCH BLOCK [90+ ms QRS DURATION, TERMINAL R IN V1/V2, 40+ ms S IN I/aVL/V4/V5/V6] ANTEROSEPTAL MYOCARDIAL INFARCTION , OF INDETERMINATE AGE [40+ ms Q WAVE IN V1-V4] Compared to ECG 01/28/2025 15:22:07 Incomplete right bundle-branch block now present Myocardial infarct finding still present /store/S0/[id number]/ecg/[id number].pdf
--- NOTE | 2025-03-19 13:07 | XR_ITS ---
Examination: PA lateral chest 2 views Technique: Upright PA lateral chest 2 views Date and time: March 19, 2025, 1337 hrs. Comparison January 28, 2025 Indications: Dizziness shortness of breath today. Findings: Mild accentuation basilar bronchovascular markings. Minor prominence left ventricle. No lobar pneumonia or pulmonary edema. Impression: Minor basilar bronchitis pattern
--- NOTE | 2025-03-19 13:07 | PD.EDRME ---
Rapid Medical Screening Exam RME Arrival date/time: 03/19/25 12:50 65-year-old male presents to the Emergency Department today with complaints of dizziness today Chief Complaint: Dizziness Vital signs: Vital Signs Temperature 98.5 F 03/19/25 12:58 Pulse Rate 88 03/19/25 12:58 Respiratory Rate 17 03/19/25 12:58 Blood Pressure 125/86 H 03/19/25 12:58 Pulse Oximetry (%) 98 03/19/25 12:58 Oxygen Delivery Method Room Air 03/19/25 12:58
[2025-03-19 13:28] LABS: Basophils # (Auto) 0.1 Thou/mm3 (0.0-0.2); Basophils % (Auto) 1 % (0-2.5); Eosinophils # (Auto) 0.2 Thou/mm3 (0.0-0.5); Eosinophils % (Auto) 2 % (0-10); Hematocrit 47.6 % (41.0-53.0); Hemoglobin 16.4 g/dL (13.5-16.0); Immature Granulocytes Auto 0.01 Thou/mm3 (0.00-0.00); Lymphocytes # (Auto) 3.0 Thou/mm3 (1.0-4.8); Lymphocytes % (Auto) 34 % (10-50); Mean Corpuscular HGB Conc 34.5 g/dl (31.0-37.0); Mean Corpuscular Hemoglobin 30.7 pg (25.0-35.0); Mean Corpuscular Volume 89 fL (80-100); Monocytes # (Auto) 0.8 Thou/mm3 (0.0-0.8); Monocytes % (Auto) 10 % (0-12); Neutrophils # (Auto) 4.6 Thou/mm3 (1.8-7.7); Neutrophils % (Auto) 53 % (37-80); Nucleated Red Blood Cell # 0.00 Thou/mm3 (0.00-0.00); Nucleated Red Blood Cell % 0 /100 WBC (0); Platelet Count 279 Thou/mm3 (140-440); RDW Standard Deviation 44.7 fL (35.1-43.9); Red Blood Count 5.35 Miln/mm3 (4.50-5.90); White Blood Count 8.7 Thou/mm3 (3.8-10.6)
[2025-03-19 13:45] LABS: INR 1.0 (0.9-1.3); Partial Thromboplastin Time 26.1 Seconds (22.0-36.0); Prothrombin Time 11.0 Seconds (9.0-12.2)
[2025-03-19 13:46] LABS: B-Type Natriuretic Peptide < 20 pg/mL (0-100)
[2025-03-19 13:48] LABS: Alanine Aminotransferase 25 U/L (10-49); Albumin, Serum 4.7 gm/dL (3.4-4.8); Albumin/Globulin Ratio 1.8 (1.2-2.2); Alkaline Phosphatase 64 U/L (46-116); Anion Gap 12 (7-16); Aspartate Amino Transferase 23 U/L (0-34); BUN/Creatinine Ratio 9 Ratio (12-20); Bilirubin,Total 0.9 mg/dL (0.3-1.2); Blood Urea Nitrogen 9 mg/dL (9-23); Calcium 9.3 mg/dL (8.3-10.6); Calcium (Corrected) 9.3 mg/dL (8.5-10.1); Carbon Dioxide 22.4 mMol/L (20.0-31.0); Chloride 108 mMol/L (98-107); Creatinine (Component) 1.0 mg/dL (0.6-1.3); Estimated Creatinine Clearance 77.4 mL/min (>60); Globulin 2.6 gm/dL (2.3-3.5); Glucose 124 mg/dL (74-106); Magnesium 1.9 mg/dL (1.6-2.6); Osmolality,Calculated 282 (275-295); Potassium 4.2 mMol/L (3.4-5.1); Sodium 142 mMol/L (136-145); Total Protein 7.3 gm/dL (5.7-8.2); Troponin I < 0.020 ng/mL (0.0-0.045); eGFR > 60 See Note
[2025-03-19 13:49] LABS: Amphetamine/Methamp Scrn,U Negative (Negative); Barbiturate Screen,Urine Negative (Negative); Benzodiazepines Screen,Urine Negative (Negative); Benzoylecgonine Screen, Ur Negative (Negative); Fentanyl Screen,Urine Negative (Negative); Opiate Screen,Urine Negative (Negative); THC Screen,Urine Negative (Negative)
--- NOTE | 2025-03-19 13:53 | PD.EDDIZZY ---
ED Dizzyness RME/HPI General Chief Complaint: Dizziness Stated Complaint: DIZZY ON AND OFF SINCE [address] N[address] Time Seen by Provider: 03/19/25 13:35 Arrival date/time: 03/19/25 12:50 Limitations: no limitations RME / HPI RME / HPI Narrative: 03/19/25 12:50 65-year-old male presents to the Emergency Department today with complaints of dizziness today DR. THOMAS MAIN ED EVALUATION: 65-year-old male with past medical history of coronary artery disease status post 5 stent placements (most recent one was less than a year ago), hypertension, hyperlipidemia, type 2 diabetes mellitus, COPD (not on home oxygen), GERD, and recurrent migraines presents to the Emergency Department with complaints of dizziness and near-syncope. Patient states that yesterday he experienced an episode that felt like near-syncope. Associated symptoms include mild chest pain. He denies leg swelling, recent travel, or blood in urine. Patient has not taken any of his prescribed medications (ASA, lisinopril, metoprolol, and Plavix) for the past four months due to insurance issues. He follows with decision support manager Dr. Altamirano. Related Data Home Medications ?Medication ?Instructions ?Recorded ?Confirmed albuterol sulfate 90 mcg/actuation 2 puff inhalation Q4H 10/05/21 11/18/21 aerosol inhaler docusate sodium 100 mg capsule 100 mg PO BID 10/05/21 11/18/21 nitroglycerin 0.4 mg sublingual 0.4 mg buccal [id number] PRN CHESTPAIN 10/05/21 09/06/22 tablet Previous Rx's ?Medication ?Instructions ?Recorded apixaban 2.5 mg tablet (Eliquis) 5 mg (2 x 2.5 mg) PO BID 30 days 09/07/22 #120 tabs aspirin 81 mg tablet,delayed 81 mg PO QDAY 30 days #30 tabs 09/07/22 release clopidogrel 75 mg tablet 75 mg PO QDAY 30 days #30 tabs 09/07/22 losartan 25 mg tablet 50 mg (2 x 25 mg) PO QDAY 30 days 09/07/22 #60 tabs metoprolol succinate 25 mg 50 mg (2 x 25 mg) PO QDAY 30 days 09/07/22 tablet,extended release 24 hr #60 tabs fluticasone propionate 50 2 spray intranasal QDAY #16 grams 11/24/22 mcg/actuation nasal spray,suspension (Flonase Allergy Relief) meclizine 50 mg tablet (Antivert) 50 mg PO BID PRN dizziness or 11/24/22 vertigo #14 tabs nicotine 7 mg/24 hr daily 7 mg topical QDAY #14 ea 11/12/23 transdermal patch albuterol sulfate 90 mcg/actuation 90 mcg inhalation Q6H PRN 06/03/24 breath activated powder shortness of breath or wheezing #1 inhaler,sensor (Proair Digihaler) ea atorvastatin 20 mg tablet 80 mg (4 x 20 mg) PO HS #30 tabs 10/04/24 doxycycline hyclate 100 mg capsule 100 mg PO BID #14 caps 11/04/24 meloxicam 15 mg tablet 15 mg PO QDAY #20 tabs 11/04/24 aspirin 81 mg capsule 81 mg PO QDAY #7 caps 01/28/25 Allergies Allergy/AdvReac Type Severity Reaction Status Date / Time almond oil Allergy Severe Difficulty Verified 03/19/25 12:54 Breathing Iodinated Contrast Media Allergy Severe Hives Verified 03/19/25 12:54 pecan nut Allergy Severe Difficulty Verified 03/19/25 12:54 Breathing tree nut Allergy Severe Difficulty Verified 03/19/25 12:54 Breathing walnut Allergy Severe Difficulty Verified 03/19/25 12:54 Breathing Review of Systems Review of Systems Systems Reviewed: All systems reviewed, normal except as documented Past Medical History Past Medical History CARDIAC: Positive Cardiac Disorders, Myocardial Infarction, Coronary Artery Disease, Atherosclerotic Heart Disease, Hypercholesterolemia and Hypertension RESPIRATORY: Positive Chronic Obstructive Pulmonary Disease (COPD) and Smoking GASTROINTESTINAL: Positive Gastrointestinal Disorders and Gastroesophageal Reflux Disease MUSCULOSKELETAL: Positive Musculoskeletal Disorders ENDOCRINE: Positive Endocrine Disorders Surgical History SURGICAL: Positive Cardiac Surgery, Coronary Stent and Abdominal Surgery Social History SMOKING STATUS: Never smoker SUBSTANCE USE: marijuana ED Exam General Limitations: Present no limitations General appearance: Present alert and in no apparent distress Head Head exam: Present atraumatic, normocephalic and normal inspection Eye Eye exam: Present normal appearance, PERRL and EOMI ENT ENT exam: Present normal exam, normal oropharynx and mucous membranes moist Neck Neck exam: Present normal inspection, full ROM and trachea midline Chest Chest inspection: Present normal inspection and symmetric chest wall rise Respiratory Respiratory exam: Present normal lung sounds bilaterally Cardiovascular Cardiovascular exam: Present regular rate, normal rhythm and normal heart sounds Abdominal Exam Abdominal exam: Present soft and normal bowel sounds Extremities Exam Extremities exam: Present normal inspection and full ROM Back Exam Back exam: Present normal inspection and full ROM Neurological Exam Neurological exam: Present alert, oriented X3 and CN II-XII intact Psychiatric Psychiatric exam: Present normal affect and normal mood Skin Skin exam: Present warm, dry, intact and normal color Course Quality Measures none Orders Category Date Time Status EKG (ED ONLY) *Do not use* NOW Care 03/19/25 12:55 Completed EKG (ED Only) Stat Exams 03/19/25 12:55 Draft XR chest 2V Stat Exams 03/19/25 13:07 Completed B-Type Natriuretic Peptide Stat Lab 03/19/25 13:18 Completed CBC Stat Lab 03/19/25 13:18 Completed Comprehensive Metabolic Panel Stat Lab 03/19/25 13:18 Completed Creatine Kinase Stat Lab 03/19/25 13:18 Completed Drug Screen,Urine Stat Lab 03/19/25 13:27 Completed Magnesium Stat Lab 03/19/25 13:18 Completed Partial Thromboplastin Time Stat Lab 03/19/25 13:18 Completed Prothrombin Time with INR Stat Lab 03/19/25 13:18 Completed Troponin I Stat Lab 03/19/25 13:18 Completed Vital Signs Vital signs: Vital Signs Temperature 98.5 F 03/19/25 12:58 Pulse Rate 88 03/19/25 12:58 Respiratory Rate 17 03/19/25 12:58 Blood Pressure 125/86 H 03/19/25 12:58 Pulse Oximetry (%) 98 03/19/25 12:58 Oxygen Delivery Method Room Air 03/19/25 12:58 Dizziness MDM Narrative MDM Narrative:: Elizabet Schuler am scribing for and in the presence of Dr. Thomas. Patient is a 65-year-old male with medical history notable for extensive coronary artery disease, hyperlipidemia medicine Emergency Department concerns for feeling lightheaded chest pain when he was in a pass out. Patient denies any sensation of spinning. States that he read his medication many months ago has not been taking his medication. Aspirin Plavix atorvastatin metoprolol. Patient follows with Dr. Altamirano and Dr. Alba and is pending placement of a pacemaker. Concern for ACS arrhythmia electrolyte abnormality fluid overload among others. Ordered labs EKG chest x-ray. + Labs without acute hematologic or significant metabolic abnormality, troponin elevated, EKG without any evidence of any acute ischemia or arrhythmia. Patient heart score is high, I did discuss the case with patient's decision support manager Dr. Altamirano agrees with admission. Discussed case with admitting resident physician, kindly send patient admission. Updated patient, with admission. Patient data External records reviewed:: [facility] previous records Clinical information provided by:: patient Social determinants that could affect healthcare access:: none Patient has the following chronic illnesses:: Coronary artery disease status post 5 stent placements (most recent one was less than a year ago), hypertension, hyperlipidemia, type 2 diabetes mellitus, COPD (not on home oxygen), GERD, and recurrent migraines. Patient has not taken any of his prescribed medications (ASA, lisinopril, metoprolol, and Plavix) for the past four months due to insurance issues. How is presenting disease/condition affected by chronic disease/condition?: exacerbated by Evaluation data The following diagnostics were reviewed and interpreted by me:: lab results, radiology exam(s) and EKG tracing(s) Lab and/or radiology exams considered but not ordered:: none Interpretation Summary: My interpretation: EKG performed at 1259 hours, sinus rhythm, rate 89, normal intervals, non specific ST-T wave changes, no cardiac alert Procedure(s): XR chest 2V Accession Number(s): [id number] cc: Ila (GURDEEP),Jayden MACKENZIE; Mikel Klein MD; Mike Zhou MD~ Examination: PA lateral chest 2 views Technique: Upright PA lateral chest 2 views Date and time: March 19, 2025, 1337 hrs. Comparison January 28, 2025 Indications: Dizziness shortness of breath today. Findings: Mild accentuation basilar bronchovascular markings. Minor prominence left ventricle. No lobar pneumonia or pulmonary edema. Impression: Minor basilar bronchitis pattern Dictated By: Mike Zhou MD Medications / Prescriptions Medications or Prescriptions considered but not ordered:: none Medication administrations:: see above if any Consultations Consultation(s) initiated? (list below): Yes Consultation #1 (Physician, Specialty, Details): Discussed test HPI, PMHx, lab, radiology results and/or management with Dr. Altamirano. Will consult an admission to the hospitalist. Time: 15:15 Consultation #2 (Physician, Specialty, Details): Discussed test HPI, PMHx, lab, radiology results and/or management with resident working with the hospitalist. Will admit for further evaluation and management. Accepts patient for admission. Time: 15:21 Diagnosis Dizziness Differential Diagnosis: other (cardiac arrhythmia secondary to medication noncompliance, transient ischemic attack, and orthostatic hypotension) Most likely diagnosis given after review of the tests above:: Unstable angina Admission Indicated Admission indicated?: indicated Admission Request Was there a request for admission?: Yes Admission Attestation Admission request attestation: Discussed case with [] from Hospitalist service regarding admission. Discussed patients ED course, exam findings, labs, and radiology results. The Hospitalist [agrees,declines] to accept the patient for admission. Disposition Plan Disposition Plan: Admit Critical Care Time Critical Care Time Critical Care Time: Yes Total Critical Care Time (min.): 40 Attestation: The high probability of sudden, clinically significant deterioration in the patient?s condition required the highest level of my preparedness to intervene urgently. The services I provided to this patient were to treat and/or prevent clinically significant deterioration. Services included the following: chart data review, reviewing nursing notes and/or old charts, documentation time, library sales consultant collaboration regarding findings and treatment options, medication orders and management, direct patient care, vital sign assessments and ordering, interpreting and reviewing diagnostic studies and lab tests. Aggregate critical care time includes only time during which I was engaged in work directly related to the patient?s care, as described above, whether at bedside or elsewhere in the Emergency Department. It did not include time spent performing other reported procedures or the services of residents, students, nurses or physician assistants. Discharge Plan Prescriptions/Referrals Prescriptions/Med Rec: No Action nitroglycerin 0.4 mg tablet, sublingual 0.4 mg BUCCAL [id number] PRN (Reason: CHESTPAIN) Patient Comments: PLACE 1 TABLET UNDER TONGUE EVERY 5 MINS, UP TO 3 DOSES PER 15MIN NEEDED FOR CHEST PAIN GO TO ER docusate sodium 100 mg capsule 100 mg PO BID Patient Comments: TAKE 1 CAPSULE BY MOUTH TWICE A DAY albuterol sulfate 90 mcg/actuation HFA aerosol inhaler 2 puff INHALATION Q4H Patient Comments: INHALE 2 PUFFS BY MOUTH EVERY 4 HOURS NEEDED FOR WHEEZING Eliquis 2.5 mg Tablet 5 mg PO BID 30 Days Qty: 120 2RF aspirin 81 mg Tablet,Delayed Release (Dr/Ec) 81 mg PO QDAY 30 Days Qty: 30 2RF clopidogrel 75 mg Tablet 75 mg PO QDAY 30 Days Qty: 30 2RF losartan 25 mg Tablet 50 mg PO QDAY 30 Days Qty: 60 2RF metoprolol succinate 25 mg Tablet Extended Release 24 Hr 50 mg PO QDAY 30 Days Qty: 60 2RF Proair Digihaler 90 mcg/actuation aero powdr breath act w/sensor 90 mcg inhalation Q6H PRN (Reason: shortness of breath or wheezing) Qty: 1 0RF atorvastatin 20 mg Tablet 80 mg PO HS Qty: 30 0RF doxycycline hyclate 100 mg capsule 100 mg PO BID Qty: 14 0RF meloxicam 15 mg tablet 15 mg PO QDAY Qty: 20 0RF fluticasone propionate [Flonase Allergy Relief] 50 mcg/actuation spray,suspension 2 spray intranasal QDAY Qty: 16 0RF Rx Instructions: administer into each nostril Antivert 50 mg tablet 50 mg PO BID PRN (Reason: dizziness or vertigo) Qty: 14 0RF nicotine 7 mg/24 hr patch 24 hour 7 mg topical QDAY Qty: 14 0RF aspirin 81 mg capsule 81 mg PO QDAY Qty: 7 0RF Referrals: Mikel Klein MD [Primary Care Provider] - In 1 week Patient/Caregiver Discharge Instructions Print Language: French
[2025-03-19 14:37] LABS: Creatine Kinase 102 U/L (34-171)
--- NOTE | 2025-03-19 16:00 | PC.NURSE ---
Patient from [facility] and taken to room 18 with c/o dizziness and near syncopal episode yesterday standing in front of his truck, patient denies fall and was able to hold on to his truck until he stopped spinning Patient states he remains feeliing dizzy and is worse with movement. Patient states he gets these episode internittently where he blacks out , currently patient alert and oriented x 3, skin warm dry and pink. Hospitalists at bedside assessing patient for admission, patient denies pain, new orders received. Call light within reach.
--- NOTE | 2025-03-19 17:05 | ECHO_ITS ---
Transthoracic Echo Report Ht (in): 67 Wt (lb): 191 Exam Location: Echo Lab Status: Emergency Security Sme: Yu Corbin Indications: Procedure Performed: BP: 124 / 79 HR: 85 MEASUREMENTS (Male / Female) Normal Values 2D ECHO LV Diastolic Diameter PLAX 4.7 cm 4.2 - 5.9 / 3.9 - 5.3 cm LV Systolic Diameter PLAX 3.4 cm IVS Diastolic Thickness 1.1 cm 0.6 - 1.0 / 0.6 - 0.9 cm LVPW Diastolic Thickness 1.0 cm 0.6 - 1.0 / 0.6 - 0.9 cm LV Relative Wall Thickness 0.4 LVOT Diameter 1.9 cm LA Systolic Diameter LX 3.4 cm 3.0 - 4.0 / 2.7 - 3.8 cm LV Ejection Fraction MOD BP 34.0 % >= 55 % LV Cardiac Index MOD BP 1962.8 cm?/min?m? LV Ejection Fraction MOD 4C 34.3 % LV Cardiac Index MOD 4C 1581.1 cm?/min?m? LV Ejection Fraction 4C AL 32.8 % LV Cardiac Index 4C AL 1550.3 cm?/min?m? LV Ejection Fraction MOD 2C 39.4 % LV Cardiac Index MOD 2C 2680.7 cm?/min?m? LV Ejection Fraction 2C AL 39.8 % LV Cardiac Index 2C AL 2783.9 cm?/min?m? LA Volume Index 21.7 cm?/m? 16 - 28 cm?/m? Ascending Aorta Diameter 3.0 cm M-MODE Aortic Root Diameter MM 2.7 cm LA Systolic Diameter MM 3.3 cm LA Ao Ratio MM 1.2 AV Cusp Separation MM 1.7 cm DOPPLER AV Peak Velocity 109.5 cm/s AV Peak Gradient 4.8 mmHg AV Mean Gradient 3.0 mmHg AV Velocity Time Integral 25.1 cm LVOT Peak Velocity 88.8 cm/s LVOT Peak Gradient 3.2 mmHg LVOT Velocity Time Integral 16.5 cm LVOT Cardiac Index 1941.3 cm?/min?m? AV Area Cont Eq vti 1.9 cm? AV Area Cont Eq pk 2.3 cm? MV Area PHT 6.3 cm? Mitral E Point Velocity 54.3 cm/s Mitral A Point Velocity 81.0 cm/s Mitral E to A Ratio 0.7 LV E' Lateral Velocity 5.3 cm/s Mitral E to LV E' Lateral Ratio 10.2 LV E' Septal Velocity 5.9 cm/s Mitral E to LV E' Septal Ratio 9.3 PV Peak Velocity 122.0 cm/s PV Peak Gradient 6.0 mmHg FINDINGS Left Ventricle Left ventricle is mildly dilated with evidence of anteroapical apical akinesis suggestive of old anteroapical myocardial infarction with evidence of small apical mural thrombus appears to be chronic. Left ventricle function is moderate to severely depressed ejection fraction of 35 to 40%. Right Ventricle The right ventricle is normal in size and systolic function. Left Atrium The left atrium is normal by two-dimensional, color flow and Doppler imaging with no structural abnormalities, no thrombus formation present. Right Atrium The right atrium is normal by two-dimensional imaging, color flow and Doppler imaging with no structural abnormalities, no thrombus formation present. Atrial Septum The interatrial septum appears normal with no evidence of a shunt. Aorta The aorta is normal by two-dimensional, color flow and Doppler interrogation. Mitral Valve The mitral valve is normal by two-dimensional, color flow and Doppler interrogation. Trace mitral regurgitation. Aortic Valve The aortic valve is trileaflet and normal by two-dimensional, color flow and Doppler interrogation. There is no significant aortic valve regurgitation. Tricuspid Valve The tricuspid valve is normal by two-dimensional, color flow and Doppler interrogation. There is no significant tricuspid valve regurgitation. Pulmonic Valve The pulmonic valve is not well visualized. There is no significant pulmonic valve regurgitation. Vessels The pulmonary artery appears normal. The inferior vena cava pulmonary and hepatic veins appear normal. Pericardium The pericardium is normal by two-dimensional imaging. There is no significant pericardial effusion. CONCLUSIONS Indication: Chest pain Ischemic cardiomyopathy anteroapical akinesis with apical mural thrombus ejection fraction 35 to 40%. Evidence of apical mural thrombus appears to be chronic. Grade 1 left ventricular diastolic dysfunction. The RV is normal in size and systolic function. Trace to mild mitral tricuspid regurgitation insignificant. Lisa Mccormack (Electronically Signed) Final Date: 20 March 2025 11:43
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
--- NOTE | 2025-03-19 17:36 | PC.NURSE ---
Dr. Torres at bedside.
[2025-03-19 17:57] LABS: Troponin I < 0.020 ng/mL (0.0-0.045)
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
[2025-03-19] MEDS: ENOXAPARIN SOD INJ 100 MG/ML SYRINGE 90 MG SC (21:10)
[2025-03-19] MEDS: ATORVASTATIN CALCIUM 20 MG TABLET 80 MG PO (21:11)
--- NOTE | 2025-03-19 22:50 | RESP.EEG ---
EEG has been completed and is ready for MD interpretation.
[2025-03-20] VITALS (14 sets, daily range): BP systolic 98–139; BP diastolic 65–86; PULSE 67–93; RESP 13–94; TEMP 36.1–36.7; O2SAT 95–100; BMI 31.0
[2025-03-20 01:50] LABS: Troponin I < 0.020 ng/mL (0.0-0.045)
[2025-03-20 06:11] LABS: Basophils # (Auto) 0.1 Thou/mm3 (0.0-0.2); Basophils % (Auto) 1 % (0-2.5); Eosinophils # (Auto) 0.3 Thou/mm3 (0.0-0.5); Eosinophils % (Auto) 3 % (0-10); Hematocrit 44.1 % (41.0-53.0); Hemoglobin 15.6 g/dL (13.5-16.0); Immature Granulocytes Auto 0.03 Thou/mm3 (0.00-0.00); Lymphocytes # (Auto) 3.5 Thou/mm3 (1.0-4.8); Lymphocytes % (Auto) 44 % (10-50); Mean Corpuscular HGB Conc 35.4 g/dl (31.0-37.0); Mean Corpuscular Hemoglobin 31.5 pg (25.0-35.0); Mean Corpuscular Volume 89 fL (80-100); Monocytes # (Auto) 0.9 Thou/mm3 (0.0-0.8); Monocytes % (Auto) 11 % (0-12); Neutrophils # (Auto) 3.2 Thou/mm3 (1.8-7.7); Neutrophils % (Auto) 41 % (37-80); Nucleated Red Blood Cell # 0.00 Thou/mm3 (0.00-0.00); Nucleated Red Blood Cell % 0 /100 WBC (0); Platelet Count 272 Thou/mm3 (140-440); RDW Standard Deviation 43.9 fL (35.1-43.9); Red Blood Count 4.96 Miln/mm3 (4.50-5.90); White Blood Count 8.0 Thou/mm3 (3.8-10.6)
[2025-03-20 06:15] LABS: INR 1.0 (0.9-1.3); Prothrombin Time 11.3 Seconds (9.0-12.2)
[2025-03-20 06:43] LABS: Alanine Aminotransferase 23 U/L (10-49); Albumin, Serum 4.1 gm/dL (3.4-4.8); Alkaline Phosphatase 57 U/L (46-116); Anion Gap 12 (7-16); Aspartate Amino Transferase 24 U/L (0-34); BUN/Creatinine Ratio 14 Ratio (12-20); Bilirubin,Direct 0.1 mg/dL (0.0-0.3); Bilirubin,Total 0.6 mg/dL (0.3-1.2); Blood Urea Nitrogen 11 mg/dL (9-23); Calcium 8.8 mg/dL (8.3-10.6); Carbon Dioxide 24.0 mMol/L (20.0-31.0); Cardiac Risk Estimate 6.4 RATIO (4.0-6.7); Chloride 106 mMol/L (98-107); Cholesterol 243 mg/dL (132-200); Creatinine (Component) 0.8 mg/dL (0.6-1.3); Estimated Creatinine Clearance 98.4 mL/min (>60); Glucose 100 mg/dL (74-106); HDL Cholesterol 38 mg/dL (40-60); LDL Cholesterol,Calculated 159 mg/dL (0-130); Magnesium 1.6 mg/dL (1.6-2.6); Osmolality,Calculated 282 (275-295); Phosphorous 3.9 mg/dL (2.4-5.1); Potassium 3.9 mMol/L (3.4-5.1); Sodium 142 mMol/L (136-145); Thyroid Stimulating Hormone 1.30 uIU/mL (0.55-4.78); Total Protein 6.4 gm/dL (5.7-8.2); Triglycerides 232 mg/dL (30-150); eGFR > 60 See Note
[2025-03-20] MEDS: CLOPIDOGREL BISULFATE 75 MG TABLET PO (09:43)
[2025-03-20] MEDS: ENOXAPARIN SOD INJ 100 MG/ML SYRINGE 90 MG SC (09:43)
[2025-03-20] MEDS: FAMOTIDINE INJ 10 MG/ML VIAL 2 ML 20 MG IVP ×2 (09:43→20:33)
[2025-03-20] MEDS: ASPIRIN EC 81 MG TABEC PO (09:43)
[2025-03-20] MEDS: METOPROLOL SUCCINATE XL 25 MG TABCR 50 MG PO (09:44)
[2025-03-20] MEDS: LOSARTAN POTASSIUM 25 MG TABLET 50 MG PO (09:44)
--- NOTE | 2025-03-20 13:43 | ESPR_ITS ---
Documentation for date of: 03/20/25 Subjective Subjective Interval history: No acute events overnight. Patient seen and examined at bedside this AM. Denies chest pain and shortness of breath, no complaints at this time. Labs and vitals were reviewed. Orthostatic vitals are indicative of orthostatic hypotension, lying blood pressure mostly 152/100, sitting 146/88, standing 160/92. Lipid panel shows elevated triglycerides, total cholesterol, LDL, and HDL. CBC and CMP were unremarkable. Troponins were negative x 3. Cardiology Dr. Roque consulted, unlikely will do cath, pending echo however was told that LV thrombus is still present. Started on atorvastatin 80 mg. Anticipate discharge tomorrow. Review of systems otherwise negative except what is mentioned above. Exam Vital Signs Temp Pulse Resp BP Pulse Ox O2 Del Method 98.1 F 85 17 108/77 95 Room Air 03/20/25 11:54 03/20/25 11:54 03/20/25 11:54 03/20/25 11:54 03/20/25 11:54 03/20/25 11:54 Narrative Exam Physical Exam General: Awake and in no acute distress. Conversational and non-toxic appearing. HEENT: Normocephalic, atraumatic, mucous membranes moist. Heart: Regular rate and rhythm, normal S1 and S2, no murmurs. Lungs: Clear to auscultation with no wheezing or crackles. Abdomen: Soft, nondistended, nontender, positive bowel sounds. No guarding or rebound tenderness. Neurologic: Alert and oriented x3, no gross neurological deficit, and patient able to move all 4 extremities. Extremities: No edema. Skin: No rash or ecchymoses. Objective Labs 03/20/25 04:37 03/20/25 04:37 Labs: Laboratory Results - last 24 hr 03/19/25 03/19/25 03/19/25 13:18 13:27 17:34 WBC RBC Hgb Hct MCV MCH MCHC RDW Std Deviation Plt Count Neut % (Auto) Lymph % (Auto) Hart % (Auto) Eos % (Auto) Baso % (Auto) Neut # (Auto) Lymph # (Auto) Hart # (Auto) Eos # (Auto) Baso # (Auto) Immature Gran # (Auto) Absolute Nucleated RBC Immature Gran % Nucleated RBC % PT 11.0 INR 1.0 APTT 26.1 Sodium 142 Potassium 4.2 Chloride 108 H Carbon Dioxide 22.4 Anion Gap 12 BUN 9 Creatinine 1.0 Estim Creat Clear Calc 77.4 eGFR > 60 BUN/Creatinine Ratio 9 L Glucose 124 H Calculated Osmolality 282 Calcium 9.3 Corrected Calcium 9.3 Phosphorus Magnesium 1.9 Total Bilirubin 0.9 Direct Bilirubin AST 23 ALT 25 Alkaline Phosphatase 64 Total Creatine Kinase 102 Troponin I < 0.020 < 0.020 B-Natriuretic Peptide < 20 Total Protein 7.3 Albumin 4.7 Globulin 2.6 Albumin/Globulin Ratio 1.8 Triglycerides Cholesterol LDL Cholesterol, Calc HDL Cholesterol Cholesterol/HDL Ratio TSH Urine Opiates Screen Negative Urine Fentanyl Screen Negative Ur Barbiturates Screen Negative U Amphetamin/Meth Scrn Negative U Benzodiazepines Scrn Negative U Cocaine Metab Screen Negative U Marijuana (THC) Screen Negative 03/20/25 03/20/25 01:24 04:37 WBC 8.0 RBC 4.96 Hgb 15.6 Hct 44.1 MCV 89 MCH 31.5 MCHC 35.4 RDW Std Deviation 43.9 Plt Count 272 Neut % (Auto) 41 Lymph % (Auto) 44 Hart % (Auto) 11 Eos % (Auto) 3 Baso % (Auto) 1 Neut # (Auto) 3.2 Lymph # (Auto) 3.5 Hart # (Auto) 0.9 H Eos # (Auto) 0.3 Baso # (Auto) 0.1 Immature Gran # (Auto) 0.03 H Absolute Nucleated RBC 0.00 Immature Gran % 0 Nucleated RBC % 0 PT 11.3 INR 1.0 APTT Sodium 142 Potassium 3.9 Chloride 106 Carbon Dioxide 24.0 Anion Gap 12 BUN 11 Creatinine 0.8 Estim Creat Clear Calc 98.4 eGFR > 60 BUN/Creatinine Ratio 14 Glucose 100 Calculated Osmolality 282 Calcium 8.8 Corrected Calcium Phosphorus 3.9 Magnesium 1.6 Total Bilirubin 0.6 Direct Bilirubin 0.1 AST 24 ALT 23 Alkaline Phosphatase 57 Total Creatine Kinase Troponin I < 0.020 B-Natriuretic Peptide Total Protein 6.4 Albumin 4.1 D Globulin Albumin/Globulin Ratio Triglycerides 232 H Cholesterol 243 H LDL Cholesterol, Calc 159 H HDL Cholesterol 38 L Cholesterol/HDL Ratio 6.4 TSH 1.30 Urine Opiates Screen Urine Fentanyl Screen Ur Barbiturates Screen U Amphetamin/Meth Scrn U Benzodiazepines Scrn U Cocaine Metab Screen U Marijuana (THC) Screen Quality Measures Quality Measures none Advance care planning discussed with:: patient Assessment & Plan Assessment Current Active Medications: Generic Name Dose Route Start Last Admin Trade Name Freq PRN Reason Stop Dose Admin Acetaminophen 650 mg 03/19/25 17:00 Acetaminophen 325 Mg Tablet PO 04/18/25 16:59 Q6H PRN PAIN OR FEVER > 101 Aspirin 81 mg 03/20/25 09:00 03/20/25 09:43 Aspirin Ec 81 Mg Tabec PO 04/19/25 08:59 81 mg QDAY BRENDA Administration Atorvastatin Calcium 80 mg 03/19/25 21:00 03/19/25 21:11 Atorvastatin Calcium 20 Mg Tablet PO 04/18/25 20:59 80 mg HS BRENDA Administration Clopidogrel Bisulfate 75 mg 03/20/25 09:00 03/20/25 09:43 Clopidogrel Bisulfate 75 Mg Tablet PO 04/19/25 08:59 75 mg QDAY BRENDA Administration Enoxaparin Sodium 90 mg 03/19/25 21:00 03/20/25 09:43 Enoxaparin Sod Inj 100 Mg/Ml Syringe SC 04/02/25 20:59 90 mg BID BRENDA Administration Protocol Famotidine 20 mg 03/19/25 21:00 03/20/25 09:43 Famotidine Inj 10 Mg/Ml Vial 2 Ml IVP 04/18/25 20:59 20 mg BID BRENDA Administration Losartan Potassium 50 mg 03/20/25 09:00 03/20/25 09:44 Losartan Potassium 25 Mg Tablet PO 04/19/25 08:59 50 mg QDAY BRENDA Administration Metoprolol Succinate 50 mg 03/20/25 09:00 03/20/25 09:44 Metoprolol Succinate Xl 25 Mg Tabcr PO 04/19/25 08:59 50 mg QDAY BRENDA Administration Nitroglycerin 0.4 mg 03/19/25 17:01 Nitroglycerin 0.4 Mg Subl Btl #25 SL 04/18/25 17:00 Q5MIN PRN CHESTPAIN Ondansetron HCl 4 mg 03/19/25 17:00 Ondansetron Inj 2 Mg/Ml Inj 2 Ml IV 04/18/25 16:59 Q6H PRN NAUSEA OR VOMITING Protocol Sennosides 2 tab 03/19/25 17:00 Senna Tablet PO 04/18/25 16:59 BID PRN CONSTIPATION Protocol Plan Patient is a 65 year old male with past medical history of CAD status post multiple stents, STEMI, LV thrombus, primary hypertension, cerebral aneurysm, HFrEF, COPD, diabetes mellitus type 2, hyperlipidemia, and migraine headaches who presented on 03/19 for presyncopal episode, admitted for workup of presyncope. #Presyncope, likely 2/2 #Orthostatic hypotension #History of cerebral aneurysm Patient reported blacking out, likely cardiac etiology given significant history of coronary artery disease and reported EF of 25%. Patient does not have any pedal edema or shortness of breath, apparently patient was scheduled for outpatient ICD placement. Patient does have a history of cerebral aneurysm, that has not been followed up in the past. Patient had a recent brain MRI done in September 2024 when he presented with similar symptoms was unremarkable. 03/20: Orthostatic vitals suggest orthostatic hypotension (lying 152/100, sitting 146/88, standing 160/92; notes drop in diastolic by more than 10). Instructed patient to hydrate more and get up slowly. Plan: ? Pending echocardiogram ? Consider brain imaging and consulting neurology if patient develops any focal logical symptoms or concern for intracerebral hemorrhage #Chest pain #Unstable angina Patient has chest pain likely secondary to unstable angina, he has complicated cardiac medical history and noncompliance, apparently patient follows many different pickle sorter and has had multiple procedures stent placed at different cardiac centers. Last reported coronary angiogram was done by Dr. Ramona Gan already 2022 for STEMI which showed severe occlusion of LAD and LCx. Patient has been noncompliant with Eliquis and Plavix, only take sublingual nitro and aspirin as daily medication. Reports because of insurance issues. 03/20: Serial troponin x 3 was negative. Per cardiology, will not do cardiac cath. Plan: ? Continue aspirin 81 mg daily, Plavix 75 mg daily, for CAD ? Continue Eliquis 5 mg twice daily LV thrombus. ? Continue home medication metoprolol succinate 50 mg daily ? Sublingual nitro as needed ? Cardiology Dr. Roque consulted, appreciate recommendations ? Encouraged adequate oral rehydration and care when standing up #History of LV thrombus ? Continue Eliquis #History of multivessel coronary artery disease #History of CHF #History of hypertension ? Resume home dose atorvastatin 80 mg daily ? Aspirin and Plavix as above ? Metoprolol as above Health Maintenance Disposition: Workup for presyncope, pending echo read DVT prophylaxis: Lovenox/Eliquis GI prophylaxis: Senna Diet: Cardiac CODE STATUS: Full Patient plan of care was discussed with the attending physician, Dr. Lagos. Shalonda Langley, PGY-1 Attending Provider Attestation/Addendum I have examined the patient, reviewed labs and imaging findings, discussed the case with the resident(s), and reviewed entered orders. I agree with the plan of care as outlined in this note, with these additional summaries/recommendations: After examination of the patient and review of the clinical data, I feel that this patient needs admission to the hospital for further treatment and evaluation. Patient is a 65-year-old male with a medical history of CAD status post multiple stents, STEMI, LV thrombus, primary hypertension, cerebral aneurysm, HFrEF, COPD, diabetes mellitus type 2, hyperlipidemia, and migraine headaches presents to [facility] emergency department on 03/19/2025 of chief complaint of presyncopal episode & chest pain. Patient was previously hospitalized in [place] for similar episode although he left AGAINST MEDICAL ADVICE before full workup. He has a lengthy history of medication noncompliance. Chest Pain/ Unstable Angina Extensive CAD history LV thrombus HFrEF Endorses improvement in chest pain in the ED although not resolved. He currently does not have a pickle sorter and appears to have poor outpatient follow-up although previously following Dr. Sharee Roque. Patient has reportedly had 8-9 stents placed in the past. Troponin negative X1 on admission. EKG: Sinus rhythm, rate 77, no LAD, RBBB 09/06/22 patient was hospitalized at [facility] for STEMI. Underwent successful PCI with stent placement of LAD and LCX. Left ventriculogram showed mild LV systolic dysfunction with apical akinesis and EF of 40 to 45% with significant apical thrombus. At that time patient was discharged with aspirin 81 mg p.o. daily, Plavix 75 mg p.o. daily, Eliquis 2.5 mg p.o. twice daily, atorvastatin 20 mg p.o. daily, losartan 25 mg p.o. daily, and metoprolol succinate 25 mg ER daily. Plan: Consult cardiology, recommendations appreciated. Patient started on aspirin, Plavix, Eliquis, and statin. Given that patient has unstable angina he was started on therapeutic Lovenox by cardiology and will follow-up on if cardiac catheterization is planned. Echocardiogram completed which revealed ischemic cardiomyopathy with akinesis, apical mural thrombus, EF 35 to 40%, grade 1 diastolic dysfunction. We will attempt to institute goal-directed medical therapy as tolerated for HFrEF although blood pressure is on the softer side. As needed morphine or nitroglycerin for chest pain. #Presyncope #Cerebral artery aneurysm # History of Complex migraine headaches Patient denies losing consciousness DDx: arrhythmia vs dehydration vs unstable angina vs ?LV thrombus vs vasovagal On previous admission CT head wo: Negative for acute hemorrhage, mass effect or midline shift & CTA H & N: 4 mm anterior communicating artery aneurysm, but no significant arterial stenosis EKG: Sinus rhythm, rate 77, no LAD, QTc 397 Plan: Orthostatic vital signs positive. Given patient's C HF history we will defer IV fluids and patient encouraged to stay hydrated and avoid excessive heat. Pending physical therapy evaluation. # COPD: Not in acute exacerbation at this time. CXR: Hyperexpansion. DuoNebs as needed Dr. Lagos
--- NOTE | 2025-03-20 15:15 | ESPR_ITS ---
<Statement entered by More Roque MD - 03/23/25 13:08> I personally examined the patient evaluated with resident physician PGY 2 Dr. Montoya patient has known history of CAD multiple stent placement clinically stable no evidence of myocardial infarction patient is quite stable to be discharged home to further evaluation as an outpatient following discharge. All essential components noted reviewed agree with the treatment plan recommendations. Documentation for date of: 03/20/25 Subjective Subjective Interval history: No acute overnight events, patient seen at bedside in telemetry. Patient has no cardiac complaint states he has not had any chest pain nor pressure or palpitations. Patient denies any shortness of breath, dizziness or syncopal episodes. Patient states that he felt like he was going to pass out therefore came to the ED but other than that has not had any cardiac symptoms. Patient was admitted to not being compliant with majority of his medications because he either could not afford them or side effects from the statin. Patient has also been having a difficult time following up with his compliance auditor in [facility]. Patient requested to be seen by Dr. Roque outpatient. Patient is extensively counseled on the importance of taking his adapt (aspirin and Plavix) as well as Eliquis because of a chronic thrombus in the left ventricle. Patient is also advised to follow-up outpatient with Dr. Roque for further monitoring and possible angiogram at some point because one of his stent has occluded due to medication noncompliance and RCA has 70% stenosis. Vitals are stable and labs are unremarkable with the exception of cholesterol 243, LDL 159, triglycerides 232. -Patient is cleared to be discharged from cardiology with clear instructions on his current medication list that he is currently getting in the hospital, patient will also need co-Q10 200 mg daily with his daily statin. Exam Vital Signs Temp Pulse Resp BP Pulse Ox O2 Del Method 98.1 F 85 17 108/77 95 Room Air 03/20/25 11:54 03/20/25 11:54 03/20/25 11:54 03/20/25 11:54 03/20/25 11:54 03/20/25 11:54 Narrative Exam GENERAL: A&Ox3 . Awake, Not in acute distress NEURO: no focal neurological deficits HEENT: Atraumatic, Normocephalic. mucous membranes moist. Eyes open, symmetrical, & clear HEART: Normal Heart Sounds LUNGS: Clear to auscultation with no wheezing or crackles. ABDOMEN: soft, non-distended, non-tender, bowel sounds heard, no guarding or rebound tenderness SKIN: No Rash or ecchymoses EXTREMITIES: No edema, tenderness, able to move all 4 extremities, pedal pulses palpated Objective Labs 03/20/25 04:37 03/20/25 04:37 Labs: Laboratory Results - last 24 hr 03/19/25 03/20/25 03/20/25 17:34 01:24 04:37 WBC 8.0 RBC 4.96 Hgb 15.6 Hct 44.1 MCV 89 MCH 31.5 MCHC 35.4 RDW Std Deviation 43.9 Plt Count 272 Neut % (Auto) 41 Lymph % (Auto) 44 Stanley % (Auto) 11 Eos % (Auto) 3 Baso % (Auto) 1 Neut # (Auto) 3.2 Lymph # (Auto) 3.5 Stanley # (Auto) 0.9 H Eos # (Auto) 0.3 Baso # (Auto) 0.1 Immature Gran # (Auto) 0.03 H Absolute Nucleated RBC 0.00 Immature Gran % 0 Nucleated RBC % 0 PT 11.3 INR 1.0 Sodium 142 Potassium 3.9 Chloride 106 Carbon Dioxide 24.0 Anion Gap 12 BUN 11 Creatinine 0.8 Estim Creat Clear Calc 98.4 eGFR > 60 BUN/Creatinine Ratio 14 Glucose 100 Calculated Osmolality 282 Calcium 8.8 Phosphorus 3.9 Magnesium 1.6 Total Bilirubin 0.6 Direct Bilirubin 0.1 AST 24 ALT 23 Alkaline Phosphatase 57 Troponin I < 0.020 < 0.020 Total Protein 6.4 Albumin 4.1 D Triglycerides 232 H Cholesterol 243 H LDL Cholesterol, Calc 159 H HDL Cholesterol 38 L Cholesterol/HDL Ratio 6.4 TSH 1.30 Quality Measures Quality Measures none Advance care planning discussed with:: patient Assessment & Plan Assessment Current Active Medications: Generic Name Dose Route Start Last Admin Trade Name Freq PRN Reason Stop Dose Admin Acetaminophen 650 mg 03/19/25 17:00 Acetaminophen 325 Mg Tablet PO 04/18/25 16:59 Q6H PRN PAIN OR FEVER > 101 Aspirin 81 mg 03/20/25 09:00 03/20/25 09:43 Aspirin Ec 81 Mg Tabec PO 04/19/25 08:59 81 mg QDAY BRENDA Administration Atorvastatin Calcium 80 mg 03/19/25 21:00 03/19/25 21:11 Atorvastatin Calcium 20 Mg Tablet PO 04/18/25 20:59 80 mg HS BRENDA Administration Clopidogrel Bisulfate 75 mg 03/20/25 09:00 03/20/25 09:43 Clopidogrel Bisulfate 75 Mg Tablet PO 04/19/25 08:59 75 mg QDAY BRENDA Administration Enoxaparin Sodium 90 mg 03/19/25 21:00 03/20/25 09:43 Enoxaparin Sod Inj 100 Mg/Ml Syringe SC 04/02/25 20:59 90 mg BID BRENDA Administration Protocol Famotidine 20 mg 03/19/25 21:00 03/20/25 09:43 Famotidine Inj 10 Mg/Ml Vial 2 Ml IVP 04/18/25 20:59 20 mg BID BRENDA Administration Losartan Potassium 50 mg 03/20/25 09:00 03/20/25 09:44 Losartan Potassium 25 Mg Tablet PO 04/19/25 08:59 50 mg QDAY BRNEDA Administration Metoprolol Succinate 50 mg 03/20/25 09:00 03/20/25 09:44 Metoprolol Succinate Xl 25 Mg Tabcr PO 04/19/25 08:59 50 mg QDAY BRENDA Administration Nitroglycerin 0.4 mg 03/19/25 17:01 Nitroglycerin 0.4 Mg Subl Btl #25 SL 04/18/25 17:00 Q5MIN PRN CHESTPAIN Ondansetron HCl 4 mg 03/19/25 17:00 Ondansetron Inj 2 Mg/Ml Inj 2 Ml IV 04/18/25 16:59 Q6H PRN NAUSEA OR VOMITING Protocol Sennosides 2 tab 03/19/25 17:00 Senna Tablet PO 04/18/25 16:59 BID PRN CONSTIPATION Protocol Plan M 65 year old male with past medical history of CAD status post multiple stents, STEMI, LV thrombus, primary hypertension, cerebral aneurysm, HFrEF, COPD, diabetes mellitus type 2, hyperlipidemia, and migraine headaches who presented on 03/19 for presyncopal episode, admitted for workup of presyncope. #Presyncope #CAD s/p multiple stents #Primary Hypertension #Chronic LV thrombus #HFrEF, EF 35-45% -Patient states that he was speaking to his neighbor and felt like he was going to blackout therefore sat down and came to the emergency room. Patient denies any dizziness or syncopal episodes. Patient denies any palpitations or chest pain prior to this episode. -Patient has history of multiple stents placed over the years (total 9 stents), most recently patient had 2 stents placed in August 2022 and mid LAD and mid LCx by Dr. Brooks. - Patient denies any chest pain, pressure or palpitations during this hospital admission - Patient also has a history of chronic left ventricular thrombus which is stable and has been seen on repeat imaging for many years - Troponins on admission were negative - EKG is sinus rhythm with a rate of 89 and QTc 430 - Patient has been noncompliant with his medications at home and states that he only takes aspirin and no Eliquis or no Plavix or any other blood thinners. Patient also stopped taking statin due to myopathy. Plan: - Patient is recommended to strict follow-up outpatient with compliance auditor Dr. Roque - Repeat echo shows EF of 35 to 45%, again the chronic left ventricular thrombus is noted - Recommend patient to continue aspirin 81 mg daily Plavix 75 mg daily and Eliquis 5 mg twice daily strictly - Patient is also recommended to continue statin 40 mg daily with co-Q10 (if patient continues to have myopathy despite that we will decide on switching to Zetia outpatient) -Recommend starting GDMT as BP is able to tolerate - Patient will need repeat angiogram at some point outpatient due to RCA noted to have 70% stenosis and one of the stent appears to be occluded likely due to medication noncompliance Thank you for the consult and allowing us to participate in the care of the patient. Cardiology will continue to follow. Assessment and plan discussed with my attending Manager Manufacturing Dr. Jude Montoya (PGY-2)- Internal medicine resident
--- NOTE | 2025-03-20 16:08 | PC.SS ---
Per afternoon rounding, pt is pending ECHO, pending PT eval, needs cardio rec's, possible cardiac cath.
[2025-03-20] MEDS: ATORVASTATIN CALCIUM 20 MG TABLET 40 MG PO (20:33)
[2025-03-20] MEDS: APIXABAN 2.5 MG TABLET 5 MG PO (20:33)
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
--- NOTE | 2025-03-20 23:28 | PC.NURSE ---
patient requested to leave ama, he felt that his care was completed, Dr. Roque had decided to not do an angio and no tests or procedures scheduled. I notified dr Manrique and he came and spoke to patient who is alert and oriented x4 and ambulatory independent. Dr. Manrique spoke to Dr. Lawrence and they decided to discharge patient. I educated patient on discharge, removed iv, printed instructions and he signed the discharge papers and belongings, all questions answered and he left ambulating, refused wheelchair. He left satisfied and happy.
== END 2025-03-20 23:25 | disposition home or self-care (01) | DRG 303 ==
LOC: SERX 14:07 → SERHOLD 17:30 → S2NX 20:22
PROVIDERS: Nurse Practitioner Primary Care; Student in an Organized Health Care Education/Training Program; Admitting Provider Student in an Organized Health Care Education/Training Program; Emergency Provider Emergency Medicine; PCP Family Medicine; Visit Provider Student in an Organized Health Care Education/Training Program
DX: I25.110 Atherosclerotic heart disease of native coronary artery with unstable angina pectoris (principal); I50.22 Chronic systolic (congestive) heart failure; I11.0 Hypertensive heart disease with heart failure; I95.1 Orthostatic hypotension; I67.1 Cerebral aneurysm, nonruptured; J44.9 Chronic obstructive pulmonary disease, unspecified; E11.9 Type 2 diabetes mellitus without complications; E78.1 Pure hyperglyceridemia; I25.2 Old myocardial infarction; I25.5 Ischemic cardiomyopathy; I45.10 Unspecified right bundle-branch block; D75.1 Secondary polycythemia; I51.3 Intracardiac thrombosis, not elsewhere classified; Z79.01 Long term (current) use of anticoagulants; Z79.02 Long term (current) use of antithrombotics/antiplatelets; Z79.82 Long term (current) use of aspirin; Z79.899 Other long term (current) drug therapy; Z87.81 Personal history of (healed) traumatic fracture; Z91.148 Patient's other noncompliance with medication regimen for other reason; Z93.3 Colostomy status; Z95.5 Presence of coronary angioplasty implant and graft
CPT/HCPCS: 36415; 71046; 80048; 80053; 80061; 80076; 80307; 81001; 82550; 83735; 83880; 84100; 84443; 84484; 85025; 85610; 85730; 87081; 93005; 93306; 95816; 99284; J1650; J3490; A9270

== ENCOUNTER 2025-04-06 17:08 | Emergency (ER) | payer MEDICARE, SELFPAY ==
[2025-04-06 17:09] VITALS: BMI 29.0
--- NOTE | 2025-04-06 17:13 | EKG_ITS ---
[facility] Test Date: 2025-04-06 Pat Name: SUSHMA GOOD Department: Room: - Gender: Male Human Resource Intern: : 1960 Requested By: ED Temporary Provider Order Number: [id number] Reading MD: ED Temporary Provider Measurements Intervals [place] Rate: 109 P: 45 ND: 131 QRS: -30 QRSD: 110 T: 59 QT: 329 QTc: 445 Interpretive Statements SINUS TACHYCARDIA LOW QRS VOLTAGE IN PRECORDIAL LEADS [QRS DEFLECTION < 1.0 mV IN CHEST LEADS] SEPTAL MYOCARDIAL INFARCTION , OF INDETERMINATE AGE [40+ ms Q WAVE IN V1/V2] Compared to ECG 03/19/2025 12:59:20 Low QRS voltage now present Sinus rhythm no longer present Incomplete right bundle-branch block no longer present Myocardial infarct finding still present /store/S0/[id number].pdf
[2025-04-06 17:16] VITALS: BP 139/89; PULSE 113; RESP 20; O2SAT 95
[2025-04-06 17:24] VITALS: TEMP 36.7
--- NOTE | 2025-04-06 19:12 | XR_ITS ---
Examination: CT brain head without contrast. 2-D sagittal coronal reconstructions Date and time of exam:April 06, 20252013 hours INDICATIONS: Dizziness episodes beginning 3 days ago CTDI: vol (mGy):48.4 DLP: (mGycm):911 Technique: Multiple CT axial sections of the brain have been obtained, 5 mm slice thickness. Contrast has not been administered. 2-D sagittal, coronal reconstructions have been obtained Low dose protocols were performed. One or more of the following dose reduction techniques were used; automated exposure control, adjustment of the mA and/or KV according to patient size, use of iterative reconstruction technique. Findings: No significant ventricular enlargement. Intra-axial or extra-axial hemorrhage density is not seen. No mass effect or midline shift Basal cisterns are not remarkable. Fourth ventricle is midline. Cranial vault intact. Impression: Negative for acute hemorrhage, mass effect or midline shift
--- NOTE | 2025-04-06 19:12 | XR_ITS ---
Examination: PA chest single view. TECHNIQUE: Upright PA chest single view. Date and time: April 06, 2025 1926 hours INDICATIONS: Chest pain beginning 3 days ago. FINDINGS: Normal heart size. No pneumonia or pulmonary edema. Moderate osteopenia. Impression: No active disease.
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
[2025-04-06 19:49] LABS: Basophils # (Auto) 0.1 Thou/mm3 (0.0-0.2); Basophils % (Auto) 1 % (0-2.5); Eosinophils # (Auto) 0.2 Thou/mm3 (0.0-0.5); Eosinophils % (Auto) 2 % (0-10); Hematocrit 48.3 % (41.0-53.0); Hemoglobin 16.8 g/dL (13.5-16.0); Immature Granulocytes Auto 0.06 Thou/mm3 (0.00-0.00); Lymphocytes # (Auto) 4.0 Thou/mm3 (1.0-4.8); Lymphocytes % (Auto) 33 % (10-50); Mean Corpuscular HGB Conc 34.8 g/dl (31.0-37.0); Mean Corpuscular Hemoglobin 30.8 pg (25.0-35.0); Mean Corpuscular Volume 89 fL (80-100); Monocytes # (Auto) 1.1 Thou/mm3 (0.0-0.8); Monocytes % (Auto) 9 % (0-12); Neutrophils # (Auto) 6.5 Thou/mm3 (1.8-7.7); Neutrophils % (Auto) 54 % (37-80); Nucleated Red Blood Cell # 0.00 Thou/mm3 (0.00-0.00); Nucleated Red Blood Cell % 0 /100 WBC (0); Platelet Count 327 Thou/mm3 (140-440); RDW Standard Deviation 44.5 fL (35.1-43.9); Red Blood Count 5.45 Miln/mm3 (4.50-5.90); White Blood Count 12.0 Thou/mm3 (3.8-10.6)
[2025-04-06 20:06] LABS: B-Type Natriuretic Peptide < 20 pg/mL (0-100); INR 1.0 (0.9-1.3); Partial Thromboplastin Time 25.9 Seconds (22.0-36.0); Prothrombin Time 10.9 Seconds (9.0-12.2)
[2025-04-06 20:09] LABS: Alanine Aminotransferase 29 U/L (10-49); Albumin, Serum 5.0 gm/dL (3.4-4.8); Albumin/Globulin Ratio 2.0 (1.2-2.2); Alkaline Phosphatase 69 U/L (46-116); Anion Gap 11 (7-16); Aspartate Amino Transferase 18 U/L (0-34); BUN/Creatinine Ratio 13 Ratio (12-20); Bilirubin,Total 0.5 mg/dL (0.3-1.2); Blood Urea Nitrogen 12 mg/dL (9-23); Calcium 10.3 mg/dL (8.3-10.6); Calcium (Corrected) 10.3 mg/dL (8.5-10.1); Carbon Dioxide 24.7 mMol/L (20.0-31.0); Chloride 104 mMol/L (98-107); Creatinine (Component) 0.9 mg/dL (0.6-1.3); Estimated Creatinine Clearance 87.6 mL/min (>60); Globulin 2.5 gm/dL (2.3-3.5); Glucose 113 mg/dL (74-106); Magnesium 2.1 mg/dL (1.6-2.6); Osmolality,Calculated 280 (275-295); Potassium 4.4 mMol/L (3.4-5.1); Sodium 140 mMol/L (136-145); Total Protein 7.5 gm/dL (5.7-8.2); Troponin I < 0.020 ng/mL (0.0-0.045); eGFR > 60 See Note
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
[2025-04-06 22:04] VITALS: RESP 12
== END 2025-04-06 22:05 | disposition home or self-care (01) ==
PROVIDERS: Physician Assistant; Emergency Provider Emergency Medicine
DX: R07.9 Chest pain, unspecified (principal); I25.10 Atherosclerotic heart disease of native coronary artery without angina pectoris; E11.9 Type 2 diabetes mellitus without complications; E78.5 Hyperlipidemia, unspecified; I11.0 Hypertensive heart disease with heart failure; I50.9 Heart failure, unspecified; Z95.5 Presence of coronary angioplasty implant and graft; R42 Dizziness and giddiness
CPT/HCPCS: 36415; 70450; 71045; 80053; 83735; 83880; 84484; 85025; 85610; 85730; 93005; 99283

== ENCOUNTER 2025-05-09 11:50 | Emergency (ER) | payer MEDICARE, SELFPAY ==
[2025-05-09 11:51] VITALS: BMI 30.5
--- NOTE | 2025-05-09 11:54 | EKG_ITS ---
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
[2025-05-09 12:16] VITALS: BP 156/103; PULSE 89; RESP 18; TEMP 36.9; O2SAT 95
--- NOTE | 2025-05-09 12:20 | PD.EDRME ---
Rapid Medical Screening Exam RME Arrival date/time: 05/09/25 11:50 65-year-old male with a history of hyperlipidemia, hypertension, CVA, presents to the emergency room with sternal chest pain that radiates up his right arm and shortness of breath x 1 day I have greeted and performed a focused initial assessment of this patient. A comprehensive ED assessment and evaluation of the patient, analysis of all test results, and completion of the medical decision making process will be conducted by additional ED providers. Chief Complaint: Chest Pain Time Seen by Provider: 05/09/25 11:56 Vital signs: Vital Signs Temperature 98.4 F 05/09/25 12:16 Pulse Rate 89 05/09/25 12:16 Respiratory Rate 18 05/09/25 12:16 Blood Pressure 156/103 H 05/09/25 12:16 Pulse Oximetry (%) 95 05/09/25 12:16 Oxygen Delivery Method Room Air 05/09/25 12:16 Vital signs reviewed by provider: Yes
--- NOTE | 2025-05-09 13:30 | XR_ITS ---
Examination: PA lateral chest 2 views TECHNIQUE: Upright PA lateral chest 2 views Date and time: May 09, 2025 1419 hours INDICATIONS: Onset chest pain today. FINDINGS: Normal heart size The lungs are clear. The osseous structures are intact IMPRESSION: No active disease
[2025-05-09 13:46] LABS: Collection Type, Urine Clean Catch; Squamous Epithelial Cell,Urine 0 /hpf (0-5)
[2025-05-09 14:07] LABS: Bilirubin,Urine Negative (Negative); Blood,Urine Negative (Negative); Clarity,Urine Clear (Clear/Hazy); Color,Urine Yellow (Lt Yel-Yel); Culture Indicated,Urine Not Indicated; Glucose, Urine Trace (Negative); Ketones,Urine Negative (Negative); Leukocyte Esterase,Urine Negative (Negative); Nitrite,Urine Negative (Negative); PH,Urine 5.5 (5.0-7.0); Protein,Urine Trace (Neg - Trace); RBC,Urine 6 /hpf (0-3); Specific Gravity,Urine 1.030 (1.001-1.035); Urobilinogen,Urine Negative mg/dL (0.0-1.0); WBC,Urine 1 /hpf (0-5)
[2025-05-09 14:13] LABS: Amphetamine/Methamp Scrn,U Negative (Negative); Barbiturate Screen,Urine Negative (Negative); Benzodiazepines Screen,Urine Negative (Negative); Benzoylecgonine Screen, Ur Negative (Negative); Fentanyl Screen,Urine Negative (Negative); Opiate Screen,Urine Negative (Negative); THC Screen,Urine Negative (Negative)
[2025-05-09 14:16] LABS: Basophils # (Auto) 0.1 Thou/mm3 (0.0-0.2); Basophils % (Auto) 1 % (0-2.5); Eosinophils # (Auto) 0.3 Thou/mm3 (0.0-0.5); Eosinophils % (Auto) 3 % (0-10); Hematocrit 46.4 % (41.0-53.0); Hemoglobin 16.0 g/dL (13.5-16.0); Immature Granulocytes Auto 0.04 Thou/mm3 (0.00-0.00); Lymphocytes # (Auto) 3.2 Thou/mm3 (1.0-4.8); Lymphocytes % (Auto) 37 % (10-50); Mean Corpuscular HGB Conc 34.5 g/dl (31.0-37.0); Mean Corpuscular Hemoglobin 31.0 pg (25.0-35.0); Mean Corpuscular Volume 90 fL (80-100); Monocytes # (Auto) 0.9 Thou/mm3 (0.0-0.8); Monocytes % (Auto) 11 % (0-12); Neutrophils # (Auto) 4.1 Thou/mm3 (1.8-7.7); Neutrophils % (Auto) 48 % (37-80); Nucleated Red Blood Cell # 0.00 Thou/mm3 (0.00-0.00); Nucleated Red Blood Cell % 0 /100 WBC (0); Platelet Count 271 Thou/mm3 (140-440); RDW Standard Deviation 45.4 fL (35.1-43.9); Red Blood Count 5.16 Miln/mm3 (4.50-5.90); White Blood Count 8.6 Thou/mm3 (3.8-10.6)
[2025-05-09 14:36] LABS: INR 1.0 (0.9-1.3); Partial Thromboplastin Time 24.5 Seconds (22.0-36.0); Prothrombin Time 10.7 Seconds (9.0-12.2)
[2025-05-09 14:40] LABS: B-Type Natriuretic Peptide < 20 pg/mL (0-100)
[2025-05-09 14:43] LABS: Alanine Aminotransferase 25 U/L (10-49); Albumin, Serum 4.6 gm/dL (3.4-4.8); Albumin/Globulin Ratio 2.0 (1.2-2.2); Alkaline Phosphatase 61 U/L (46-116); Anion Gap 10 (7-16); Aspartate Amino Transferase 20 U/L (0-34); BUN/Creatinine Ratio 11 Ratio (12-20); Bilirubin,Total 0.5 mg/dL (0.3-1.2); Blood Urea Nitrogen 10 mg/dL (9-23); Calcium 10.1 mg/dL (8.3-10.6); Calcium (Corrected) 10.1 mg/dL (8.5-10.1); Carbon Dioxide 25.6 mMol/L (20.0-31.0); Chloride 105 mMol/L (98-107); Creatinine (Component) 0.9 mg/dL (0.6-1.3); Estimated Creatinine Clearance 86.9 mL/min (>60); Globulin 2.3 gm/dL (2.3-3.5); Glucose 130 mg/dL (74-106); LDH (Lactate Dehydrogenase) 204 U/L (120-246); Magnesium 2.0 mg/dL (1.6-2.6); Osmolality,Calculated 282 (275-295); Potassium 4.5 mMol/L (3.4-5.1); Sodium 141 mMol/L (136-145); Total Protein 6.9 gm/dL (5.7-8.2); Troponin I < 0.020 ng/mL (0.0-0.045); eGFR > 60 See Note
--- NOTE | 2025-05-09 15:45 | EDNOTE_ITS ---
<Statement entered by Franci Fan MD - 05/09/25 17:41> As co-signing physician, I was present and available for consult prn. I concur with the plan and care as documented by the midlevel provider. ED Chest Pain RME/HPI General Chief Complaint: Chest Pain Stated Complaint: CHEST PAIN/DIFF BREATHING SINCE 0300 TODAY Time Seen by Provider: 05/09/25 11:56 Source: patient Arrival date/time: 05/09/25 11:50 65-year-old male with a history of hyperlipidemia, hypertension, CVA, presents to the emergency room with sternal chest pain that radiates up his right arm and shortness of breath x 1 day Mode of arrival: ambulatory Limitations: no limitations RME / HPI RME / HPI narrative: 05/09/25 11:50 65-year-old male with a history of hyperlipidemia, hypertension, CVA, presents to the emergency room with sternal chest pain that radiates up his right arm and shortness of breath x 1 day I have greeted and performed a focused initial assessment of this patient. A comprehensive ED assessment and evaluation of the patient, analysis of all test results, and completion of the medical decision making process will be conducted by additional ED providers. Related Data Home Medications ?Medication ?Instructions ?Recorded ?Confirmed albuterol sulfate 90 mcg/actuation 2 puff inhalation Q 4H 10/05/21 03/19/25 aerosol inhaler Held on 03/20/25. Instructions: Resume on 04/23/25. Until seen by PCP nitroglycerin 0.4 mg sublingual 0.4 mg buccal [id number] PRN CHESTPAIN 10/05/21 03/19/25 tablet Previous Rx's ?Medication ?Instructions ?Recorded nicotine 7 mg/24 hr daily 7 mg topical QDAY #14 ea transdermal patch albuterol sulfate 90 mcg/actuation 90 mcg inhalation Q 6H PRN 06/03/24 breath activated powder shortness of breath or wheez ing #1 inhaler,sensor (Proair Digihaler) ea Held on 03/20/25. Instructions: Resume on 04/21/25. Until seen by PCP aspirin 81 mg capsule 81 mg PO QDAY 1 month #30 ca ps 03/20/25 atorvastatin 40 mg tablet 40 mg PO QPM #30 tabs clopidogrel 75 mg tablet 75 mg PO QDAY #30 tabs 03/20 coenzyme Q10 200 mg capsule 200 mg PO QDAY #30 caps losartan 50 mg tablet 50 mg PO QDAY #30 tabs 03/20 metoprolol succinate 50 mg 50 mg PO QDAY #30 tabs 02/23 03/18 tablet,extended release 24 hr Allergies Allergy/AdvReac Type Severity Reaction Status Date / Time almond oil Allergy Severe Difficulty Verified 05/09/25 11:53 Breathing Iodinated Contrast Media Allergy Severe Hives Verified 05/09/25 11:53 pecan nut Allergy Severe Difficulty Verified 05/09/25 11:53 Breathing tree nut Allergy Severe Difficulty Verified 05/09/25 11:53 Breathing walnut Allergy Severe Difficulty Verified 05/09/25 11:53 Breathing Review of Systems Review of Systems Systems Reviewed: All systems reviewed, normal except as documented Constitutional Constitutional: Reports system reviewed and no additional complaints, except as documented, Denies fatigue, Denies fever(s), Denies headache(s) and Denies weakness Eyes Eyes: Reports system reviewed and no additional complaints, except as documented, Denies blurry vision and Denies change in vision ENT Ears, Nose, Mouth, and Throat: Reports system reviewed and no additional complaints, except as documented, Denies otalgia, Denies headache(s), Denies nasal congestion, Denies throat swelling and Denies vertigo Cardiovascular Cardiovascular: Reports system reviewed and no additional complaints, except as documented, Reports chest pain, Reports chest pain at rest, Reports dyspnea and Denies dyspnea on exertion Respiratory Respiratory: Reports system reviewed and no additional complaints, except as documented, Denies chest congestion, Denies cough, Reports dyspnea, Denies dyspnea on exertion and Denies wheezing Gastrointestinal Gastrointestinal: Reports system reviewed and no additional complaints, except as documented, Denies abdominal pain, Denies cramping, Denies nausea and Denies vomiting Genitourinary Genitourinary: Reports system reviewed and no additional complaints, except as documented, Denies dysuria and Denies hematuria Musculoskeletal Musculoskeletal: Reports system reviewed and no additional complaints, except as documented and Denies back pain Integumentary/Breasts Skin/Breast: Reports system reviewed and no additional complaints, except as documented and Denies wounds Neurologic Neurologic: Reports system reviewed and no additional complaints, except as documented, Denies confusion, Denies headache(s), Denies lack of coordination, Denies vertigo and Denies weakness Psychiatric Psychiatric: Reports system reviewed and no additional complaints, except as documented, Denies anxiety, Denies confusion, Denies depression, Denies paranoia, Denies suicidal ideation and Denies tactile hallucinations Endocrine Endocrine: Reports system reviewed and no additional complaints, except as documented and Denies fatigue Hematologic/Lymphatic Hematologic/Lymphatic: Reports system reviewed and no additional complaints, except as documented and Denies lymphadenopathy Allergic/Immunologic Allergic/Immunologic: Reports system reviewed and no additional complaints, except as documented, Denies throat swelling, Denies urticaria and Denies wheezing ED Exam General Limitations: Present no limitations General appearance: Present alert and in no apparent distress Head Head exam: Present atraumatic Eye Eye exam: Present normal appearance, PERRL and EOMI ENT ENT exam: Present normal exam, normal oropharynx and mucous membranes moist Neck Neck exam: Present normal inspection, full ROM and trachea midline Chest Chest inspection: Present normal inspection and symmetric chest wall rise; Absent tenderness Respiratory Respiratory exam: Present normal lung sounds bilaterally; Absent respiratory distress, wheezes, stridor, accessory muscle use or prolonged expiratory phase Cardiovascular Cardiovascular exam: Present regular rate, normal rhythm and normal heart sounds; Absent tachycardia Abdominal Exam Abdominal exam: Present soft and normal bowel sounds; Absent tenderness Extremities Exam Extremities exam: Present normal inspection and full ROM Back Exam Back exam: Present normal inspection and full ROM Neurological Exam Neurological exam: Present alert, oriented X3 and CN II-XII intact Psychiatric Psychiatric exam: Present normal affect and normal mood Skin Skin exam: Present warm, dry, intact and normal color Course Quality Measures none Orders Category Date Time Status EKG (ED ONLY) *Do not use* NOW Care 05/09/25 11:54 Completed EKG (ED Only) Stat Exams 05/09/25 11:54 Draft XR chest 2V Stat Exams 05/09/25 13:30 Completed B-Type Natriuretic Peptide Stat Lab 05/09/25 14:00 Completed CBC Stat Lab 05/09/25 14:00 Completed Comprehensive Metabolic Panel Stat Lab 05/09/25 14:00 Completed Drug Screen,Urine Stat Lab 05/09/25 13:36 Completed LDH (Lactate Dehydrogenase) Stat Lab 05/09/25 14:00 Completed Magnesium Stat Lab 05/09/25 14:00 Completed Partial Thromboplastin Time Stat Lab 05/09/25 14:00 Completed Prothrombin Time with INR Stat Lab 05/09/25 14:00 Completed Troponin I Stat Lab 05/09/25 14:00 Completed Urinalysis, C/S if Indicated Stat Lab 05/09/25 13:36 Completed cloNIDine HCL [Catapres] Med 05/09/25 12:27 Discontinued 0.2 mg PO X1 ONE Vital Signs Vital signs: Vital Signs Temperature 98.4 F 05/09/25 12:16 Pulse Rate 89 05/09/25 12:16 Respiratory Rate 18 05/09/25 12:16 Blood Pressure 156/103 H 05/09/25 12:16 Pulse Oximetry (%) 95 05/09/25 12:16 Oxygen Delivery Method Room Air 05/09/25 12:16 Chest Pain MDM Narrative MDM Narrative:: 65-year-old male with a history of hyperlipidemia, hypertension, CVA, presents to the emergency room with sternal chest pain that radiates up his right arm and shortness of breath x 1 day Patient is hemodynamically stable and in no apparent distress Physical examination shows clear bilateral lung sounds there is no wheezing stri shawn or any abnormal breath sounds. Patient has a strong and regular rhythm S1 and S2 noted EKG shows normal sinus rhythm [address] deviation. CBC CMP and troponin are negative. Chest x-ray was negative for any pneumonic infiltrates Patient was discharged and educated to follow-up with primary care provider in the next 24 to 48 hours and return to the emergency room for any evidence of w orsening signs or symptoms Patient data External records reviewed:: [facility] previous records Clinical information provided by:: patient Social determinants that could affect healthcare access:: none Patient has the following chronic illnesses:: No chronic illness How is presenting disease/condition affected by chronic disease/condition?: no chronic disease Evaluation data The following diagnostics were reviewed and interpreted by me:: lab results and radiology exam(s) Lab and/or radiology exams considered but not ordered:: Labs and radiology exams considered and ordered Interpretation Summary: Chest [id number]: Normal heart size The lungs are clear. The osseous structures are intact IMPRESSION: No active disease Medications / Prescriptions Medications or Prescriptions considered but not ordered:: Medication given Medication administrations:: Medication Administration History Discontinued Medications Clonidine (Clonidine Hcl 0.1 Mg Tablet) 0.2 mg PO X1 ONE Stop: 05/09/25 12:28 Last Admin: 05/09/25 12:39 Dose: Not Given Documented By: Non-Admin Reason: Cancelled by Provider Medication given Consultations Consultation(s) initiated? (list below): No Diagnosis Chest Pain Differential Diagnosis: stable angina, unstable angina pectoris, atypical chest pain, st elevation myocardial infarction, costochondritis and chest pain Most likely diagnosis given after review of the tests above:: Chest pain Admission Indicated Admission indicated?: not indicated Admission Request Was there a request for admission?: No Disposition Plan Disposition Plan: Discharge Discharge Attestation Discharge Attestation: The patient and all family members were given an opportunity to ask questions and understood the discharge instructions. Discharge instructions specifically effects, indications for sooner follow up or return to the emergency department, and the expected course of current diagnosis. Patient condition: Stable Discharge Plan Plan Patient Disposition: HOME (Self Care) Discharge Disposition comment: Stable Prescriptions/Referrals Prescriptions/Med Rec: No Action nitroglycerin 0.4 mg tablet, sublingual 0.4 mg BUCCAL [id number] PRN (Reason: CHESTPAIN) Patient Comments: PLACE 1 TABLET UNDER TONGUE EVERY 5 MINS, UP TO 3 DOSES PER 15MIN NEEDED FOR CHEST PAIN GO TO ER albuterol sulfate 90 mcg/actuation HFA aerosol inhaler 2 puff INHALATION Q4H Patient Comments: INHALE 2 PUFFS BY MOUTH EVERY 4 HOURS NEEDED FOR WHEEZING Proair Digihaler 90 mcg/actuation aero powdr breath act w/sensor 90 mcg inhalation Q6H PRN (Reason: shortness of breath or wheezing) Qty: 1 0RF nicotine 7 mg/24 hr patch 24 hour 7 mg topical QDAY Qty: 14 0RF atorvastatin 40 mg tablet 40 mg PO QPM Qty: 30 0RF clopidogrel 75 mg tablet 75 mg PO QDAY Qty: 30 0RF losartan 50 mg tablet 50 mg PO QDAY Qty: 30 0RF metoprolol succinate 50 mg tablet extended release 24 hr 50 mg PO QDAY Qty: 30 0RF aspirin 81 mg capsule 81 mg PO QDAY 30 Days Qty: 30 0RF coenzyme Q10 200 mg capsule 200 mg PO QDAY Qty: 30 0RF Referrals: Jacinto Valadez PA-C [Primary Care Provider] - In 1 week Problem List Clinical Impression: Chest pain Patient/Caregiver Discharge Instructions Education Materials: ED Chest Pain, Noncardiac Additional Instructions: Please follow-up with your primary care provider in the next 24 to 48 hours Your cardiac examination today was within normal limits. Please follow-up with your nursing unit coordinator For any evidence of worsening signs or symptoms return to the emergency room immediately Print Language: Slovenian Stand Alone Forms: [employer] Award Info., Work/School Release, Patient Portal Info Letter PA/ELECTRIC TRAIN DRIVER Supervising Physician PA/ELECTRIC TRAIN DRIVER Supervising Physician: Dr. Momin
== END 2025-05-09 16:12 | disposition home or self-care (01) ==
PROVIDERS: Nurse Practitioner Family; Emergency Provider Emergency Medicine; PCP Physician Assistant
DX: R07.9 Chest pain, unspecified (principal); R94.31 Abnormal electrocardiogram [ECG] [EKG]; I10 Essential (primary) hypertension; E78.5 Hyperlipidemia, unspecified
CPT/HCPCS: 36415; 71046; 80053; 80307; 81001; 83615; 83735; 83880; 84484; 85025; 85610; 85730; 93005; 99283

== ENCOUNTER 2025-06-20 08:19 | Emergency (ER) | payer MEDICARE, MEDICAID, SELFPAY ==
[2025-06-20 08:20] VITALS: BMI 29.3
--- NOTE | 2025-06-20 08:22 | EKG_ITS ---
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1960 Requested By: Patrick Ramírez Order Number: [id number] Reading MD: Patrick Ramírez Measurements Intervals [place] Rate: 77 P: 44 SD: 141 QRS: -25 QRSD: 118 T: 29 QT: 344 QTc: 391 Interpretive Statements SINUS RHYTHM LOW QRS VOLTAGE IN PRECORDIAL LEADS [QRS DEFLECTION < 1.0 mV IN CHEST LEADS] INCOMPLETE RIGHT BUNDLE BRANCH BLOCK [90+ ms QRS DURATION, TERMINAL R IN V1/V2, 40+ ms S IN I/aVL/V4/V5/V6] SEPTAL MYOCARDIAL INFARCTION , OF INDETERMINATE AGE [40+ ms Q WAVE IN V1/V2] Compared to ECG 05/09/2025 12:12:07 Incomplete right bundle-branch block now present Myocardial infarct finding still present /store/S0/[id number].pdf
--- NOTE | 2025-06-20 08:44 | XR_ITS ---
EXAMINATION: PA lateral chest 2 views TECHNIQUE: Upright PA lateral chest 2 views Date and time: June 20, 2025, 0846 hours INDICATIONS: Chest pain beginning 4 hours ago FINDINGS: Normal heart size Lungs are clear. The osseous factors are intact IMPRESSION: No active disease
--- NOTE | 2025-06-20 08:44 | PD.EDRME ---
Rapid Medical Screening Exam RME Arrival date/time: 06/20/25 08:19 65-year-old male with history of hyperlipidemia, hypertension, CVAs, ACS, presents to the emergency room with a chief complaint of 5 out of 10 sternal chest pain that began today at 5 in the morning. I have greeted and performed a focused initial assessment of this patient. A comprehensive ED assessment and evaluation of the patient, analysis of all test results, and completion of the medical decision making process will be conducted by additional ED providers. Chief Complaint: Chest Pain Time Seen by Provider: 06/20/25 08:21 Vital signs reviewed by provider: Yes Exam: Strong regular rhythm S1 and S2 noted Clear bilateral lung sounds no wheezing or any abnormal breath sounds Clinical Impression: STEMI/NSTEMI/chest pain/costochondritis
[2025-06-20 08:57] VITALS: BP 151/89; PULSE 80; RESP 18; TEMP 36.6; O2SAT 99
[2025-06-20 10:00] LABS: Basophils # (Auto) 0.1 Thou/mm3 (0.0-0.2); Basophils % (Auto) 1 % (0-2.5); Eosinophils # (Auto) 0.2 Thou/mm3 (0.0-0.5); Eosinophils % (Auto) 2 % (0-10); Hematocrit 48.6 % (41.0-53.0); Hemoglobin 16.4 g/dL (13.5-16.0); Immature Granulocytes Auto 0.04 Thou/mm3 (0.00-0.00); Lymphocytes # (Auto) 2.4 Thou/mm3 (1.0-4.8); Lymphocytes % (Auto) 26 % (10-50); Mean Corpuscular HGB Conc 33.7 g/dl (31.0-37.0); Mean Corpuscular Hemoglobin 30.4 pg (25.0-35.0); Mean Corpuscular Volume 90 fL (80-100); Monocytes # (Auto) 0.9 Thou/mm3 (0.0-0.8); Monocytes % (Auto) 10 % (0-12); Neutrophils # (Auto) 5.4 Thou/mm3 (1.8-7.7); Neutrophils % (Auto) 60 % (37-80); Nucleated Red Blood Cell # 0.00 Thou/mm3 (0.00-0.00); Nucleated Red Blood Cell % 0 /100 WBC (0); Platelet Count 294 Thou/mm3 (140-440); RDW Standard Deviation 44.7 fL (35.1-43.9); Red Blood Count 5.39 Miln/mm3 (4.50-5.90); White Blood Count 9.1 Thou/mm3 (3.8-10.6)
[2025-06-20 10:01] LABS: Collection Type, Urine Clean Catch
[2025-06-20 10:10] LABS: Bilirubin,Urine Negative (Negative); Blood,Urine Negative (Negative); Clarity,Urine Clear (Clear/Hazy); Color,Urine Yellow (Lt Yel-Yel); Culture Indicated,Urine Not Indicated; Glucose, Urine Negative (Negative); Hyaline Casts,Urine < 1 /hpf (0-1); Ketones,Urine Negative (Negative); Leukocyte Esterase,Urine Negative (Negative); Nitrite,Urine Negative (Negative); PH,Urine 5.5 (5.0-7.0); Protein,Urine Trace (Neg - Trace); RBC,Urine 3 /hpf (0-3); Specific Gravity,Urine 1.029 (1.001-1.035); Squamous Epithelial Cell,Urine < 1 /hpf (0-5); Urobilinogen,Urine Negative mg/dL (0.0-1.0); WBC,Urine 1 /hpf (0-5)
[2025-06-20 10:16] LABS: Amphetamine/Methamp Scrn,U Negative (Negative); B-Type Natriuretic Peptide < 20 pg/mL (0-100); Barbiturate Screen,Urine Negative (Negative); Benzodiazepines Screen,Urine Negative (Negative); Benzoylecgonine Screen, Ur Negative (Negative); Fentanyl Screen,Urine Negative (Negative); INR 1.0 (0.9-1.3); Opiate Screen,Urine Negative (Negative); Partial Thromboplastin Time 27.6 Seconds (22.0-36.0); Prothrombin Time 10.4 Seconds (9.0-12.2); THC Screen,Urine Negative (Negative)
[2025-06-20 10:29] LABS: Alanine Aminotransferase 24 U/L (10-49); Albumin, Serum 4.9 gm/dL (3.4-4.8); Albumin/Globulin Ratio 2.1 (1.2-2.2); Alkaline Phosphatase 67 U/L (46-116); Anion Gap 11 (7-16); Aspartate Amino Transferase 21 U/L (0-34); BUN/Creatinine Ratio 12 Ratio (12-20); Bilirubin,Total 0.6 mg/dL (0.3-1.2); Blood Urea Nitrogen 11 mg/dL (9-23); Calcium 9.2 mg/dL (8.3-10.6); Calcium (Corrected) 9.2 mg/dL (8.5-10.1); Carbon Dioxide 26.1 mMol/L (20.0-31.0); Chloride 104 mMol/L (98-107); Creatinine (Component) 0.9 mg/dL (0.6-1.3); Estimated Creatinine Clearance 88.0 mL/min (>60); Globulin 2.3 gm/dL (2.3-3.5); Glucose 163 mg/dL (74-106); LDH (Lactate Dehydrogenase) 215 U/L (120-246); Magnesium 1.9 mg/dL (1.6-2.6); Osmolality,Calculated 284 (275-295); Potassium 4.5 mMol/L (3.4-5.1); Sodium 141 mMol/L (136-145); Total Protein 7.2 gm/dL (5.7-8.2); Troponin I < 0.020 ng/mL (0.0-0.045); eGFR > 60 See Note
--- NOTE | 2025-06-20 11:12 | PD.EDADULT ---
ED General RME/HPI General Chief complaint: Chest Pain Stated complaint: CHEST PAIN SINCE 0500 TODAY Time Seen by Provider: 06/20/25 08:21 Arrival date/time: 06/20/25 08:19 CC: Chest pain HPI onset when he woke up this morning, band pain across the center of the chest denies any abdominal pain denies nausea vomiting shortness of breath difficulty breathing similar episodes in the past. No OTC medicines taken. RME / HPI RME / HPI narrative: 06/20/25 08:19 65-year-old male with history of hyperlipidemia, hypertension, CVAs, ACS, presents to the emergency room with a chief complaint of 5 out of 10 sternal chest pain that began today at 5 in the morning. I have greeted and performed a focused initial assessment of this patient. A comprehensive ED assessment and evaluation of the patient, analysis of all test results, and completion of the medical decision making process will be conducted by additional ED providers. Exam: Strong regular rhythm S1 and S2 noted Clear bilateral lung sounds no wheezing or any abnormal breath sounds Impression: STEMI/NSTEMI/chest pain/costochondritis Related Data Home Medications ?Medication ?Instructions ?Recorded ?Confirmed albuterol sulfate 90 mcg/actuation 2 puff inhalation Q4H 10/05/21 03/19/25 aerosol inhaler Held on 03/20/25. Instructions: Resume on 04/23/25. Until seen by PCP nitroglycerin 0.4 mg sublingual 0.4 mg buccal [id number] PRN CHESTPAIN 10/05/21 03/19/25 tablet Previous Rx's ?Medication ?Instructions ?Recorded nicotine 7 mg/24 hr daily 7 mg topical QDAY #14 ea 11/12/23 transdermal patch albuterol sulfate 90 mcg/actuation 90 mcg inhalation Q6H PRN 06/03/24 breath activated powder shortness of breath or wheezing #1 inhaler,sensor (Proair Digihaler) ea Held on 03/20/25. Instructions: Resume on 04/21/25. Until seen by PCP aspirin 81 mg capsule 81 mg PO QDAY 1 month #30 caps 03/20/25 atorvastatin 40 mg tablet 40 mg PO QPM #30 tabs 03/20/25 clopidogrel 75 mg tablet 75 mg PO QDAY #30 tabs 03/20/25 coenzyme Q10 200 mg capsule 200 mg PO QDAY #30 caps 03/20/25 losartan 50 mg tablet 50 mg PO QDAY #30 tabs 03/20/25 metoprolol succinate 50 mg 50 mg PO QDAY #30 tabs 03/20/25 tablet,extended release 24 hr Allergies Allergy/AdvReac Type Severity Reaction Status Date / Time almond oil Allergy Severe Difficulty Verified 06/20/25 08:21 Breathing Iodinated Contrast Media Allergy Severe Hives Verified 06/20/25 08:21 pecan nut Allergy Severe Difficulty Verified 06/20/25 08:21 Breathing tree nut Allergy Severe Difficulty Verified 06/20/25 08:21 Breathing walnut Allergy Severe Difficulty Verified 06/20/25 08:21 Breathing Review of Systems Review of Systems Narrative Review of Systems: GEN: No fever, no chills, no weight loss EYES: No discharge, no visual changes, no pain HEENT: No ear pain, no congestion, no sore throat PULM: No shortness of breath, no cough, no congestion CV: + chest pain, no dyspnea on exertion, no palpitations GI: No nausea, no vomiting, no diarrhea, no pain, no constipation : No frequency, no urgency, no dysuria MUSC/SKEL: No joint pain, no back pain SKIN: No rash PSYCH: No hallucinations, no depression HEME/LYMPH: No easy bleeding or bruising tendencies NEURO: No weakness, no headache Past Medical History Past Medical History NEUROLOGIC: Negative Neurological Disorders CARDIAC: Positive Cardiac Disorders, Myocardial Infarction, Coronary Artery Disease, Atherosclerotic Heart Disease, Hypercholesterolemia and Hypertension; Negative Congestive Heart Failure RESPIRATORY: Positive Chronic Obstructive Pulmonary Disease (COPD) and Smoking; Negative Asthma GASTROINTESTINAL: Positive Gastrointestinal Disorders and Gastroesophageal Reflux Disease GENITOURINARY: Negative Genitourinary Disorders or Renal Disease MUSCULOSKELETAL: Positive Musculoskeletal Disorders ENDOCRINE: Positive Endocrine Disorders and Diabetes Mellitus Type 2; Negative Diabetes Mellitus Type 1 HEMATOLOGIC: Negative Blood Disorders or Sickle Cell Disease OTHER HISTORY: Negative Cancer Family History FAMILY HISTORY: Negative Family Psychiatric Problems, Family Respiratory Disorders, Family Cardiac Disorders or Family Gastrointestinal Problems Surgical History SURGICAL: Positive Cardiac Surgery, Coronary Stent (x9) and Abdominal Surgery; Negative Joint Replacement Social History SMOKING STATUS: Never smoker SUBSTANCE USE: marijuana ED Exam Narrative Physical exam: [General: Not in any acute distress Head normocephalic HEENT: Within acceptable limits Neck is supple nontender Chest equal chest rise nontender to palpation Respiratory: Clear to auscultation no wheezes crackles or rubs CV: Rate rhythm is regular no murmurs rubs or clicks Abdomen is soft nontender no masses positive bowel sounds all 4 quadrants Back: No CVA tenderness no spinous process tenderness from cervical spine thoracic and lumbar spine Skin: Intact no petechiae rash induration ulceration or crepitus Extremities: Moving all extremity against resistance cap refill less than 2 seconds neurosensory intact Neuro: Awake alert oriented x3 Glascow coma 15 no focal deficits] Course Course Course Narrative: Chest pain is not reproducible with palpation or deep inhalation, initial and delta troponin are negative will discharge the patient home with chest pain Quality Measures none Orders Category Date Time Status EKG (ED ONLY) *Do not use* NOW Care 06/20/25 08:22 Completed EKG (ED Only) Stat Exams 06/20/25 08:22 Draft XR chest 2V Stat Exams 06/20/25 08:44 Completed B-Type Natriuretic Peptide Stat Lab 06/20/25 09:30 Completed CBC Stat Lab 06/20/25 09:30 Completed Comprehensive Metabolic Panel Stat Lab 06/20/25 09:30 Completed Drug Screen,Urine Stat Lab 06/20/25 09:30 Completed LDH (Lactate Dehydrogenase) Stat Lab 06/20/25 09:30 Completed Magnesium Stat Lab 06/20/25 09:30 Completed Partial Thromboplastin Time Stat Lab 06/20/25 09:30 Completed Prothrombin Time with INR Stat Lab 06/20/25 09:30 Completed Troponin I Stat Lab 06/20/25 09:30 Completed Troponin I Stat Lab 06/20/25 11:55 Completed Urinalysis, C/S if Indicated Stat Lab 06/20/25 09:30 Completed Vital Signs Vital signs: Vital Signs Temperature 98 F 06/20/25 08:57 Pulse Rate 80 06/20/25 08:57 Respiratory Rate 18 06/20/25 08:57 Blood Pressure 151/89 H 06/20/25 08:57 Pulse Oximetry (%) 99 06/20/25 08:57 Oxygen Delivery Method Room Air 06/20/25 08:57 Discharge Plan Plan Patient Disposition: HOME (Self Care) Patient condition on transfer: Stable Prescriptions/Referrals Prescriptions/Med Rec: No Action nitroglycerin 0.4 mg tablet, sublingual 0.4 mg BUCCAL [id number] PRN (Reason: CHESTPAIN) Patient Comments: PLACE 1 TABLET UNDER TONGUE EVERY 5 MINS, UP TO 3 DOSES PER 15MIN NEEDED FOR CHEST PAIN GO TO ER albuterol sulfate 90 mcg/actuation HFA aerosol inhaler 2 puff INHALATION Q4H Patient Comments: INHALE 2 PUFFS BY MOUTH EVERY 4 HOURS NEEDED FOR WHEEZING Proair Digihaler 90 mcg/actuation aero powdr breath act w/sensor 90 mcg inhalation Q6H PRN (Reason: shortness of breath or wheezing) Qty: 1 0RF nicotine 7 mg/24 hr patch 24 hour 7 mg topical QDAY Qty: 14 0RF atorvastatin 40 mg tablet 40 mg PO QPM Qty: 30 0RF clopidogrel 75 mg tablet 75 mg PO QDAY Qty: 30 0RF losartan 50 mg tablet 50 mg PO QDAY Qty: 30 0RF metoprolol succinate 50 mg tablet extended release 24 hr 50 mg PO QDAY Qty: 30 0RF aspirin 81 mg capsule 81 mg PO QDAY 30 Days Qty: 30 0RF coenzyme Q10 200 mg capsule 200 mg PO QDAY Qty: 30 0RF Referrals: Mikel Klein MD [Primary Care Provider, Family Practice] - In 1 week Problem List Clinical Impression: Chest pain Patient/Caregiver Discharge Instructions Education Materials: ED Chest Pain, Uncertain Cause Additional Instructions: Follow-up with your primary care doctor Print Language: Telugu Stand Alone Forms: [employer] Award Info., Work/School Release, Patient Portal Info Letter PA/WHEELCHAIR VAN OPERATOR FIRST RESPONDER Supervising Physician PA/WHEELCHAIR VAN OPERATOR FIRST RESPONDER Supervising Physician: Amanuel Dover ENP [facility] Clinical Information Provided by: patient Medical Records reviewed [facility] Meds/Rx considered, not ordered None Labs/Rad/Tests considered, not ordered None Chronic Illness/Social Conditions which may negatively complicate care or outcome(s)-explain: CHF/CAD/Cardiac illness EKG Interpretation EKG #1: EKG Interpretation: EKG performed at 0 9 01 shows ventricular rate of 77 AK interval 141 QRS of 118 QTc of 376 is normal sinus rhythm. Compared to an old EKG of May 11 there are no significant changes. Labs Labs: interpreted by ak Lab(s) Interpretation(s): CBC shows no acute leukocytosis anemia thrombocytopenia CMP shows no significant electrolyte imbalances other than a glucose of 163 no renal impairment transaminitis or T. bili elevation Initial and delta troponin are both negative Urine is unremarkable for UTI UDS is negative. Imaging Imaging interpretation: interpreted by me Imaging Interpretation(s): Chest x-ray is unremarkable as interpreted by radiology. Diagnosis Differential Diagnosis ED Complaint MDM: ACS ND pneumonia
[2025-06-20 12:56] LABS: Troponin I < 0.020 ng/mL (0.0-0.045)
[2025-06-20 13:17] VITALS: BP 146/85; PULSE 87
== END 2025-06-20 13:19 | disposition home or self-care (01) ==
PROVIDERS: Nurse Practitioner Family; Emergency Provider Family Medicine; PCP Family Medicine
DX: R07.9 Chest pain, unspecified (principal); E78.5 Hyperlipidemia, unspecified; I10 Essential (primary) hypertension; Z95.5 Presence of coronary angioplasty implant and graft; Z96.60 Presence of unspecified orthopedic joint implant
CPT/HCPCS: 36415; 71046; 80053; 80307; 81001; 83615; 83735; 83880; 84484; 85025; 85610; 85730; 93005; 99283

== ENCOUNTER 2025-08-03 13:32 | Emergency (ER) | payer MEDICARE, MEDICAID, SELFPAY ==
--- NOTE | 2025-08-03 13:39 | EKG_ITS ---
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1960 Requested By: John Huggins Order Number: [id number] Reading MD: John Huggins Measurements Intervals [place] Rate: 88 P: 45 MS: 130 QRS: -33 QRSD: 121 T: 39 QT: 348 QTc: 422 Interpretive Statements SINUS RHYTHM LEFT AXIS DEVIATION [QRS AXIS < -30] POSSIBLE RIGHT VENTRICULAR CONDUCTION DELAY [RSR (QR) IN V1/V2] SEPTAL MYOCARDIAL INFARCTION , OF INDETERMINATE AGE [40+ ms Q WAVE IN V1/V2] Compared to ECG 06/20/2025 09:01:12 Left-axis deviation now present Incomplete right bundle-branch block no longer present Myocardial infarct finding still present /store/S0/[id number]/[id number].pdf
[2025-08-03 14:20] VITALS: BP 157/95; PULSE 89; RESP 20; TEMP 36.8; O2SAT 95; BMI 29.5
--- NOTE | 2025-08-03 14:25 | PD.EDRME ---
Rapid Medical Screening Exam RME Arrival date/time: 08/03/25 13:32 Chief Complaint: Chest Pain Time Seen by Provider: 08/03/25 18:14 Vital signs: Vital Signs Temperature 98.2 F 08/03/25 14:20 Pulse Rate 89 08/03/25 14:20 Respiratory Rate 20 08/03/25 14:20 Blood Pressure 157/95 H 08/03/25 14:20 Pulse Oximetry (%) 95 08/03/25 14:20 Oxygen Delivery Method Room Air 08/03/25 14:20 RME Narrative: 65-year-old male with past medical history of multiple stents presents to the ER complaining of chest pain, shortness of breath, nausea vomiting which started earlier today. I briefly performed a screening evaluation to initiate work-up and expedite care. Complete history, physical exam, and plan of care is deferred to the provider in the main ED. Exam: Head: Normocephalic, atraumatic. Respiratory: Normal effort. No respiratory distress or accessory muscle use. Neuro: Speech normal. Skin: Warm, dry, normal color. Psych: Pleasant. Normal affect. Cooperative. Clinical Impression: Rule out ACS
--- NOTE | 2025-08-03 14:26 | XR_ITS ---
EXAMINATION: PA lateral chest 2 views TECHNIQUE: Upright PA lateral chest 2 views Date and time: August 03, 2025, 1714 hours INDICATIONS: Chest pain today. FINDINGS: Moderate hyperexpansion. No pneumonia or pulmonary edema Normal heart size IMPRESSION: Moderate hyperexpansion
[2025-08-03 15:01] LABS: Basophils # (Auto) 0.1 Thou/mm3 (0.0-0.2); Basophils % (Auto) 1 % (0-2.5); Eosinophils # (Auto) 0.2 Thou/mm3 (0.0-0.5); Eosinophils % (Auto) 2 % (0-10); Hematocrit 46.5 % (41.0-53.0); Hemoglobin 16.1 g/dL (13.5-16.0); Immature Granulocytes Auto 0.04 Thou/mm3 (0.00-0.00); Lymphocytes # (Auto) 3.1 Thou/mm3 (1.0-4.8); Lymphocytes % (Auto) 32 % (10-50); Mean Corpuscular HGB Conc 34.6 g/dl (31.0-37.0); Mean Corpuscular Hemoglobin 30.7 pg (25.0-35.0); Mean Corpuscular Volume 89 fL (80-100); Monocytes # (Auto) 1.0 Thou/mm3 (0.0-0.8); Monocytes % (Auto) 11 % (0-12); Neutrophils # (Auto) 5.0 Thou/mm3 (1.8-7.7); Neutrophils % (Auto) 53 % (37-80); Nucleated Red Blood Cell # 0.00 Thou/mm3 (0.00-0.00); Nucleated Red Blood Cell % 0 /100 WBC (0); Platelet Count 276 Thou/mm3 (140-440); RDW Standard Deviation 44.1 fL (35.1-43.9); Red Blood Count 5.25 Miln/mm3 (4.50-5.90); White Blood Count 9.5 Thou/mm3 (3.8-10.6)
[2025-08-03 15:11] LABS: INR 1.0 (0.9-1.3); Prothrombin Time 10.3 Seconds (9.0-12.2)
[2025-08-03 15:16] LABS: B-Type Natriuretic Peptide < 20 pg/mL (0-100)
[2025-08-03 15:18] LABS: Alanine Aminotransferase 29 U/L (10-49); Albumin, Serum 5.0 gm/dL (3.4-4.8); Albumin/Globulin Ratio 1.8 (1.2-2.2); Alkaline Phosphatase 66 U/L (46-116); Anion Gap 12 (7-16); Aspartate Amino Transferase 22 U/L (0-34); BUN/Creatinine Ratio 13 Ratio (12-20); Bilirubin,Total 0.5 mg/dL (0.3-1.2); Blood Urea Nitrogen 13 mg/dL (9-23); Calcium 10.4 mg/dL (8.3-10.6); Calcium (Corrected) 10.4 mg/dL (8.5-10.1); Carbon Dioxide 26.0 mMol/L (20.0-31.0); Chloride 103 mMol/L (98-107); Creatinine (Component) 1.0 mg/dL (0.6-1.3); Estimated Creatinine Clearance 79.4 mL/min (>60); Globulin 2.8 gm/dL (2.3-3.5); Glucose 134 mg/dL (74-106); Lipase 37 U/L (12-53); Osmolality,Calculated 283 (275-295); Potassium 4.4 mMol/L (3.4-5.1); Sodium 141 mMol/L (136-145); Total Protein 7.8 gm/dL (5.7-8.2); Troponin I < 0.020 ng/mL (0.0-0.045); eGFR > 60 See Note
--- NOTE | 2025-08-03 18:54 | PC.NURSE ---
NO ANSWER FOR CALL BACK TO MAIN ED
--- NOTE | 2025-08-03 18:54 | PD.EDADDENDU ---
Emergency Room Addendum Addendum Narrative: Attempted to locate the patient in the lobby for discussions related to laboratory and EKG findings, but it appears the patient has eloped from the facility.
--- NOTE | 2025-08-03 19:00 | PC.NURSE ---
NO ANSWER FOR MAIN ED
--- NOTE | 2025-08-03 19:07 | PC.NURSE ---
NO ANSWER FOR MAIN ED
== END 2025-08-03 19:08 | disposition left against medical advice (07) ==
PROVIDERS: Physician Assistant; Emergency Provider Emergency Medicine; PCP Physician Assistant
DX: R07.9 Chest pain, unspecified (principal); R06.02 Shortness of breath; R11.2 Nausea with vomiting, unspecified; R94.31 Abnormal electrocardiogram [ECG] [EKG]; Z53.29 Procedure and treatment not carried out because of patient's decision for other reasons
CPT/HCPCS: 36415; 71046; 80053; 83690; 83880; 84484; 85025; 85610; 93005; 99283